=== PATIENT | male | born 1955 | race Caucasian/White ===

== ENCOUNTER 2019-12-11 13:33 | Observation (INO) | payer MEDICARE, BC, SELFPAY ==
[2019-12-11 13:34] VITALS: BP 140/84; PULSE 80; RESP 16; TEMP 36.9; O2SAT 96; BMI 32.3
[2019-12-11 13:37] VITALS: BP 140/84; PULSE 80; RESP 16; TEMP 36.9; O2SAT 96
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
--- NOTE | 2019-12-11 14:14 | RAD_ITS ---
STUDY: X-RAY CHEST REASON FOR EXAM: Male, 64 years old. COUGH, DIZZINESS, WEAKNESS TECHNIQUE: Single AP portable view of the chest. COMPARISON: 2013 FINDINGS: EKG leads overlie the chest The lungs are clear and expanded. There is no demonstrated pleural abnormality. Normal size heart. Normal mediastinum and robe. Normal visualized pulmonary arteries. Normal visualized aortic arch and descending thoracic aorta. Normal visualized thoracic spine. Normal visualized ribs, clavicles, and shoulders. There is no demonstrated abnormality of the visualized soft tissue structures of the upper abdomen. RAD/Chest 1 View (Portable) IMPRESSION: Normal x-ray examination of the chest. Electronically Signed: Yohannes Murray MD at 14:32 EDT , Service support ,
[2019-12-11] MEDS: Acetaminophen 500 MG Tablet 1000 MG PO (14:30)
[2019-12-11] MEDS: 0.9% Normal Saline 1,000 ML 125 ML IV ×2 (14:30→21:06)
[2019-12-11 14:34] LABS: Absolute Lymphocyte Count 1.25 X10^3/uL (0.83-4.51); Absolute Neutrophil Count 2.4 X10^3/uL (2.0-7.7); Basophil# 0.01 X10^3/uL; Basophil% 0.2 % (0-1); Eosinophil# 0.02 X10^3/uL; Eosinophils% 0.5 % (0-5); Hemoglobin 14.7 g/dL (13.0-16.5); Lymphocyte # 1.25 X10^3/ul (4.0); Lymphocyte % 30.5 % (19-41); Mean Corp Hgb Conc 34.2 g/dL (32-36); Mean Corpuscular Hgb 30.2 pg (27.0-32.0); Mean Corpuscular Volume 88.3 fL (80-94); Mean Platelet Vol. 9.9 fl (6.2-12.0); Monocyte# 0.42 X10^3/uL; Monocyte% 10.2 % (0-10); NRBC Flagged by Analyzer 0 % (0-5); Neutrophil # 2.39 X10^3/uL (2.7-7.7); Neutrophil % 58.4 % (47-70); Platelet Count 219 K/mm3 (150-450); RBC Distribution Width CV 12.5 % (11.6-14.6); RBC Distribution Width SD 40.5 fl (35.1-43.9); Red Blood Count 4.87 M/mm3 (4.6-6.2); White Blood Count 4.1 K/mm3 (4.4-11.0)
[2019-12-11 14:36] LABS: AST(SGOT) 20 U/L (15-37); Alanine Aminotransfer ALT/SGPT 34 U/L (16-61); Albumin, Serum 4.1 g/dL (3.2-5.0); Alkaline Phosphatase 76 U/L (45-117); Anion Gap 5 (5-15); BUN 19 mg/dL (7-18); Calcium,Total 8.8 mg/dL (8.5-10.1); Chloride 107 mmol/L (98-107); Creatinine, Serum 1.36 mg/dL (0.70-1.30); EST Glomerular Filtration Rate 56 mL/min (>60); Est Glom Filt Rate - Afr Amer 68 mL/min (>60); Estimated Creatinine Clearance 48.87 ml/min; Globulin 4.1 g/dL (2.2-4.2); Glucose 152 mg/dL (74-106); Protein, Total 8.2 g/dL (6.4-8.2); Sodium Level 138 mmol/L (136-145)
--- NOTE | 2019-12-11 14:43 | CT_ITS ---
STUDY: CTA CHEST REASON FOR EXAM: Male, 64 years old. HYPOXIA/WEAKNESS/PAIN. Pt feels dehydrated. Hx of HTN, HLD and diabetes RADIATION DOSAGE (If Supplied By Facility): CTDIvol = ( 11.59 ) mGy, DLP = ( 461.29 ) mGycm TECHNIQUE: The examination was performed with the intravenous administration of [id number] 100ml. Post-processing of the angiographic images was performed, with multiplanar reformation and 3D reconstruction. Individualized dose optimization techniques were used for this CT. COMPARISON: None. FINDINGS: Normal enhancement of the main pulmonary artery and right and left pulmonary arteries. Normal enhancement of the bilateral peripheral pulmonary arteries. There is no demonstrated pulmonary embolism. Normal thoracic aorta and visualized great vessels. There is no demonstrated aortic dissection. Normal heart and pericardium. There are calcifications of the coronary arteries. Normal mediastinum. Normal hilar regions. There is peribronchial thickening. The lungs are well expanded. Patchy opacifications in the left lower lobe suggest pneumonitis. No organized infiltrate or effusion. Normal pleura. Normal chest wall structures. There are degenerative changes of thoracic spine. Limited cuts through the upper abdomen show fatty infiltration of the liver. CT/CTA Chest W/WO Contrast IMPRESSION: No demonstrated PE, or thoracic aortic aneurysm or dissection Evidence of chronic bronchitis and left lower lobe pneumonitis No demonstrated effusion Calcified coronary vessels Degenerative bony changes Electronically Signed: Yohannes Murray MD at 15:17 EDT , Service support ,
[2019-12-11 14:46] LABS: Lactic Acid 1.1 mmol/L (0.4-1.9)
[2019-12-11 14:52] LABS: BNP,B-Type NATRIURETIC PEPTIDE 10.8 pg/mL (0-100)
[2019-12-11 16:07] VITALS: BP 114/71; PULSE 75; RESP 20; TEMP 37.6; O2SAT 99
[2019-12-11 16:12] VITALS: BP 114/71; PULSE 68; RESP 19; TEMP 37.6; O2SAT 98
[2019-12-11] MEDS: Ceftriaxone 1 GM/50 ML BAG IV (16:12)
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
[2019-12-11 18:25] VITALS: BP 134/83; PULSE 73; RESP 18; TEMP 37.6; O2SAT 98
[2019-12-11 18:41] LABS: Bedside Glucose 112 mg/dL (70-110)
[2019-12-11 18:55] VITALS: BMI 32.3
[2019-12-11 18:59] LABS: CPK Total, Creatine Kinase 96 U/L (39-308); LDH 147 U/L (87-241)
[2019-12-11 19:08] LABS: Procalcitonin 0.08 ng/mL (0.00-0.09)
[2019-12-11] MEDS: Insulin Lispro 100 UNIT/ML INSULN.PEN SC (21:07)
[2019-12-11] MEDS: Acetaminophen 325 MG Tablet 650 MG PO (21:08)
[2019-12-11] MEDS: MELATONIN 3 MG TABLET PO (21:08)
[2019-12-11 21:18] VITALS: BMI 36.5
[2019-12-11 22:30] VITALS: BP 138/67; PULSE 72; RESP 16; TEMP 37.9; O2SAT 97
[2019-12-12 00:06] LABS: Bedside Glucose 273 mg/dL (70-110)
[2019-12-12] MEDS: Acetaminophen 325 MG Tablet 650 MG PO ×2 (03:19→11:25)
[2019-12-12] MEDS: guaiFENesin 1,200 MG Tablet 1200 MG PO (03:19)
[2019-12-12] MEDS: 0.9% Saline Lock 10 ML Syringe IV (03:19)
[2019-12-12 03:30] VITALS: BP 156/76; PULSE 75; RESP 15; TEMP 37.4; O2SAT 98
[2019-12-12] MEDS: 0.9% Normal Saline 1,000 ML 125 ML IV (03:34)
[2019-12-12 03:55] LABS: Absolute Lymphocyte Count 1.11 X10^3/uL (0.83-4.51); Absolute Neutrophil Count 2.2 X10^3/uL (2.0-7.7); Eosinophil# 0.01 X10^3/uL; Eosinophils% 0.3 % (0-5); Hematocrit 38.1 % (40-54); Hemoglobin 12.7 g/dL (13.0-16.5); Lymphocyte # 1.11 X10^3/ul (4.0); Mean Corp Hgb Conc 33.3 g/dL (32-36); Mean Corpuscular Hgb 29.5 pg (27.0-32.0); Mean Corpuscular Volume 88.6 fL (80-94); Monocyte% 8.4 % (0-10); NRBC Flagged by Analyzer 0 % (0-5); Neutrophil # 2.15 X10^3/uL (2.7-7.7); Platelet Count 193 K/mm3 (150-450); RBC Distribution Width CV 12.6 % (11.6-14.6); RBC Distribution Width SD 40.3 fl (35.1-43.9); White Blood Count 3.6 K/mm3 (4.4-11.0)
[2019-12-12 03:59] LABS: Anion Gap 6 (5-15); BUN 16 mg/dL (7-18); BUN/Creat Ratio 12.4 RATIO (10-20); Calcium,Total 8.1 mg/dL (8.5-10.1); Chloride 107 mmol/L (98-107); Creatinine, Serum 1.29 mg/dL (0.70-1.30); EST Glomerular Filtration Rate 59 mL/min (>60); Est Glom Filt Rate - Afr Amer 72 mL/min (>60); Estimated Creatinine Clearance 51.52 ml/min; Glucose 141 mg/dL (74-106); Potassium 3.9 mmol/L (3.5-5.1); Sodium Level 137 mmol/L (136-145)
--- NOTE | 2019-12-12 09:04 | PCM.PROGNOTE ---
Patient Problems: Active and Suspected Problems COVID-19 (Acute) Subjective: Chief complaint: Follow-up after admission for viral pneumonia due to COVID-19. Patient seen and examined. No acute events overnight. He complained of cough, intermittently dry and sometimes with sputum. Shortness of breath improved. He has been having spikes of low-grade fever. Remained on room air. Other vital signs are stable. - Physical Exam Vitals/I&O's: Vital Signs Temp Pulse Resp BP Pulse Ox 99.3 F H 75 15 156/76 H 98 12/12/19 03:30 12/12/19 03:30 12/12/19 03:30 12/12/19 03:30 12/12/19 03:30 Oxygen Delivery Method Room Air Weight: 226 lb 6.636 oz Body Mass Index (BMI) 36.5 Finger Stick Blood Glucose 439 Intake and Output for Last 24 Hours 12/10/19 12/11/19 12/12/19 23:59 23:59 23:59 Intake Total 1095.00 / 1095.00 928.33 / 928.33 Balance 1095.00 / 1095.00 928.33 / 928.33 General: Alert, Oriented x3, Cooperative, No apparent distress HEENT: Atraumatic, PERRLA, EOMI, Normocephalic Oral: Moist Mucosa, No Gingival or Mucosal Lesions/ Ulcerations Neck: Supple, No JVD, Negative Carotid Bruits, Trachea Midline, Thyroid Normal Size and Texture Lungs: Clear to auscultation, Normal air movement, No rhonchi, No wheeze, No rales, Diminished Cardiovascular: Regular rate, Regular Rhythm, Normal S1, Normal S2, PMI Normal Abdomen: Bowel Sounds Present, Soft, Non Tender, Non-Distended, No Hepato-splenomegaly Extremities: No clubbing, No cyanosis, No edema Skin: No rashes, No breakdown Lymphatic: No Cervical, Supraclavicular, or Inguinal Adenopathy Neurological: Cranial nerves II-XII grossly intact, Neuro grossly intact Psych/Mental Status: Normal Affect, Appropriate, Alert and oriented to time, place, person, mood and affect Microbiology Past 72 Hours 12/11/19 14:12 Mucosa - Nose Respiratory Panel (PCR) - Preliminary Laboratory Results 12/11/19 13:50: WBC 4.1 L, RBC 4.87, Hgb 14.7, Hct 43.0, MCV 88.3, MCH 30.2, MCHC 34.2, RDW Std Deviation 40.5, RDW Coeff of Gerri 12.5, Plt Count 219, MPV 9.9, Immature Gran % (Auto) 0.200, Neut % (Auto) 58.4, Lymph % (Auto) 30.5, [place] % (Auto) 10.2 H, Eos % (Auto) 0.5, Baso % (Auto) 0.2, Absolute Neuts (auto) 2.4, Absolute Lymphs (auto) 1.25, Nucleated RBC % 0 12/11/19 13:50: Sodium 138, Potassium 4.0, Chloride 107, Carbon Dioxide 26.0, Anion Gap 5, BUN 19 H, Creatinine 1.36 H, Estim Creat Clear Calc 48.87, Est GFR (MDRD) Af Amer 68, Est GFR (MDRD) Non-Af 56 L, BUN/Creatinine Ratio 14.0, Glucose 152 H, Calcium 8.8, Total Bilirubin 0.40, AST 20, ALT 34, Alkaline Phosphatase 76, Troponin I < 0.015, Total Protein 8.2, Albumin 4.1, Globulin 4.1, Albumin/Globulin Ratio 1.0 12/11/19 13:50: Lactic Acid 1.1 12/11/19 13:50: B-Natriuretic Peptide 10.8 12/11/19 14:12: COVID-19 ([facility]AN) Positive 12/11/19 18:13: POC Glucose 112 H 12/11/19 18:30: Lactate Dehydrogenase 147, Total Creatine Kinase 96, Troponin I < 0.015, C-React Prot Ext Range 19.40 H 12/11/19 18:30: Procalcitonin 0.08 12/11/19 21:03: POC Glucose 273 H 12/12/19 03:25: WBC 3.6 L, RBC 4.30 L, Hgb 12.7 L, Hct 38.1 L, MCV 88.6, MCH 29.5, MCHC 33.3, RDW Std Deviation 40.3, RDW Coeff of Gerri 12.6, Plt Count 193, MPV 10.0, Immature Gran % (Auto) 0.300, Neut % (Auto) 60.0, Lymph % (Auto) 31.0, [place] % (Auto) 8.4, Eos % (Auto) 0.3, Baso % (Auto) 0.0, Absolute Neuts (auto) 2.2, Absolute Lymphs (auto) 1.11, Nucleated RBC % 0 12/12/19 03:25: Sodium 137, Potassium 3.9, Chloride 107, Carbon Dioxide 24.0, Anion Gap 6, BUN 16, Creatinine 1.29, Estim Creat Clear Calc 51.52, Est GFR (MDRD) Af Amer 72, Est GFR (MDRD) Non-Af 59 L, BUN/Creatinine Ratio 12.4, Glucose 141 H, Calcium 8.1 L Clinical Impression(s) from Imaging Studies Chest X-Ray 12/11/19 14:14 IMPRESSION: Normal x-ray examination of the chest. Electronically Signed: Yohannes Murray MD at 14:32 EDT , Service support , Chest CTA 12/11/19 14:43 IMPRESSION: No demonstrated PE, or thoracic aortic aneurysm or dissection Evidence of chronic bronchitis and left lower lobe pneumonitis No demonstrated effusion Calcified coronary vessels Degenerative bony changes Electronically Signed: Yohannes Murray MD at 15:17 EDT , Service support , Current Medications Acetaminophen (Tylenol) 650 mg PO Q6H PRN PRN PRN Reason: Pain Score 1-10/Temp > 100.7 F Last Admin: 12/12/19 03:19 Dose: 650 mg Documented by: Allopurinol (Zyloprim) 300 mg PO DAILY [facility] Amlodipine Besylate (Norvasc) 5 mg PO DAILY [facility] Aspirin (Aspirin, Baby) 81 mg PO DAILY [facility] Dextrose (D50w Syringe) 0 gm IV X1 PRN; Protocol PRN Reason: Hypoglycemia Enoxaparin Sodium (Lovenox) 40 mg SC DAILY [facility] Glucagon () 1 mg IM .X1 PRN PRN Reason: Hypoglycemia Guaifenesin (Mucinex) 1,200 mg PO BID PRN PRN PRN Reason: COUGH/CONGESTION Last Admin: 12/12/19 03:19 Dose: 1,200 mg Documented by: Sodium Chloride () 250 mls @ 15 mls/hr IV .[id number] PRN PRN Reason: Saline Flush Sodium Chloride () 250 mls @ 15 mls/hr IV .[id number] PRN PRN Reason: Additional IVPB Infusion Levofloxacin (Levaquin Iv) 750 mg in 150 mls @ 100 mls/hr IV Q24 [facility] Insulin Human Lispro (Humalog Kwikpen (Bkc)) 0 unit SC ACHS [facility]; Protocol Last Admin: 12/12/19 08:20 Dose: Not Given Documented by: Lactobacillus Acidophilus (Acidophilus) 1 tablet PO BID TITA Last Admin: 12/11/19 21:06 Dose: 1 tablet Documented by: Losartan Potassium (Cozaar) 100 mg PO DAILY [facility] Melatonin (Melatonin) 3 mg PO QHS PRN PRN PRN Reason: INSOMNIA Last Admin: 12/11/19 21:08 Dose: 3 mg Documented by: Metoprolol Succinate (Toprol Xl (Beta Di)) 50 mg PO DAILY [facility] Ondansetron HCl (Zofran) 4 mg IV Q8H PRN PRN PRN Reason: NAUSEA/VOMITING Pravastatin Sodium (Pravachol) 40 mg PO QHS [facility] Sodium Chloride () 10 - 40 ml IV UD PRN PRN Reason: SALINE FLUSH Last Admin: 12/12/19 03:19 Dose: 20 ml Documented by: Medical Necessity - Tobacco Use Smoking Status: Never smoker Assessment/Plan All Active Problems COVID-19 (Acute) This is a 64 years old male patient presented to the emergency room because of cough, malaise, arthralgias and myalgias as well as shortness of breath and he was found to have viral pneumonia due to COVID-19. #1 acute viral pneumonia due to COVID-19: Chest x-ray reviewed. CTA chest showed no PE or dissection, revealed left lower lobe minimal infiltrate. Patient received 1 dose of IV Rocephin in the ED. He has been having spikes of fever, remained on room air, other vital signs are stable. Routine blood work revealed leukopenia, otherwise unremarkable. Lactic acid was normal. LDH, CPK were normal. Troponin and BNP were normal. Procalcitonin was normal. CRP was elevated. COVID-19 PCR came back positive. Plan: Start IV Levaquin, infectious disease consult. #2 type 2 diabetes mellitus: Blood sugar stable, continue sliding scale, restart Actos, keep holding metformin. #3 hypertension: Blood pressure stable, continue Norvasc and losartan as well as metoprolol. #4 gout: Stable, continue allopurinol. #5 hyperlipidemia: Continue statins. #6 DVT prophylaxis: Subcu Lovenox. This note was generated with [employer] dictation software. It may contain incorrect words, spelling, and punctuation that were not noted in checking the note before signing. Inpatient E&M: 88866 Subs Hosp L2
--- NOTE | 2019-12-12 09:41 | CASEMGMT ---
ASHISH VAUGHAN Assessment Note Intro role of CM to patient via phone to room. Pt is able to participate in assessment. States he is very independent @ home. Lives with his and daughter, both are not showing symptoms and have not been tested. ASHISH VAUGHAN reviewed recommendations for his /dghtr to take temperature daily and to call their PCP with any symptoms or fever. Per patient, they are isolating at home currently. Presentation: shortness of breath, cough, malaise, Diagnosis: COVID-19 -Patient states he has area of home to isolate including own bathroom. -Patient has masks to wear and understands importance of handwashing. -Pharmacy is [facility] and they will deliver medications for patient -Discussed that during isolation/quarantine time @ home, someone will need to bring groceries, or local stores have delivery. Patient states he understands and will look this up. -Informed patient further instructions will be given by physician and nurses on dc. PCP: Dr. Galicia Specialists: none Insurance: LYNNE ARREOLA [facility] Prescription Benefit: yes LNOK: Janis Living Arrangements: Lives independently. Plans to return home on dc. Tranportation: drives, but is aware he will need to be isolated for period of time on dc. Patient DC Goals: Home DC Plan: Home. CM available for discharge planning coordination. Contact CM for any concerns/needs that may arise. Raquel REYN RN ACM
--- NOTE | 2019-12-12 10:07 | DCINST_ITS ---
- Discharge Diagnoses Current Active Problems: Current Active and Chronic Problems COVID-19 (Acute) You will use the following diet at home:: Calorie/Carbohydrate Controlled (specify 1200, 1400, etc) - 1800 KEHINDE., Cardiac Your food should be the consistency of: Regular Discharge Activity: Return to Normal Activity Weight Bearing Status: Full weight bearing Call your doctor if you observe: Fever of 101 or Higher, Shortness of breath, Dizziness, Fainting spells, Chest pain, Increased palpitations (irregular heartbeat), Uncontrolled pain Additional Instructions: Quarantine yourself for 2 weeks from the start of the symptoms. Allergies/Adverse Reactions: Allergies clarithromycin [From Biaxin] Allergy (Verified 12/11/19 13:34) Hives Sulfa (Sulfonamide Antibiotics) Allergy (Verified 12/11/19 13:34) Hives hydralazine Adverse Reaction (Verified 12/11/19 13:34) Other Medications to take at Discharge Allopurinol [Zyloprim] 300 mg PO DAILY 10/30/13 Aspirin [Aspirin, Baby] 81 mg PO DAILY@0800 10/30/13 Lactobacillus Acidophilus [Acidophilus] 1 tablet PO BID 10/30/13 Pravastatin [Pravachol] 40 mg PO DAILY 05/22/14 Albuterol Sulfate [Albuterol Sulfate HFA] 2 puff INHALATION Q4H PRN PRN 12/11/19 Amlodipine [Norvasc] 5 mg PO DAILY 12/11/19 Azithromycin [Zithromax Z-Danny] 250 mg PO UD 12/11/19 Losartan Potassium [Cozaar] 100 mg PO DAILY 12/11/19 Metformin HCl [Metformin HCl ER] 2,000 mg PO QHS 12/11/19 Metoprolol Succinate 50 mg PO DAILY 12/11/19 Pioglitazone [Actos] 15 mg PO QHS 12/11/19 Primary Care Physician: Kate Galicia MD [Primary Care Provider] - Please follow up with your Primary Care Physician in: 2 WEEKS. Test Results: Test results from this visit will be discussed in further detail at your follow- up appointment, if applicable.
--- NOTE | 2019-12-12 10:33 | PCM.HP.ID ---
Problem List (1) COVID-19 Status: Acute Reason for Consult: covid Consulted by: Dr. Grimes History of Present Illness: The patient is a 64 year old M with DM, htn, obesity, presented yesterday with dry cough, headache, muscle aches, not feeling well. Sx started 12/06. Has been trying to mask and isolate, but multiple recent exposures to possible covid cases as well as swimming in crowded pool. Lives with and daughter and they have been feeling fine. No chest pain or dyspnea, but feels a tickle in his chest. Developed loss of taste this AM. No n/v/d. No abd pain, no rash. Mild chills. Came to ED, covid (+), feeling about the same this AM. Full ROS performed and neg except as noted above. - Medical History Past Medical History (Chronic Problems): Chronic Problems Obesity (BMI 30-39.9) (Chronic) Hypertension (Chronic) Hyperlipidemia (Chronic) Diabetes mellitus, type II (Chronic) Gout (Chronic) Chronic R brachial plexus injury (Chronic) Allergies/Adverse Reactions: Allergies clarithromycin [From Biaxin] Allergy (Verified 12/11/19 13:34) Hives Sulfa (Sulfonamide Antibiotics) Allergy (Verified 12/11/19 13:34) Hives hydralazine Adverse Reaction (Verified 12/11/19 13:34) Other Home Medications: Ambulatory Orders Medication Instructions Recorded Allopurinol [Zyloprim] 300 mg PO DAILY 10/30/13 Aspirin [Aspirin, Baby] 81 mg PO DAILY@0800 10/30/13 Lactobacillus Acidophilus 1 tablet PO BID 10/30/13 [Acidophilus] Pravastatin [Pravachol] 40 mg PO DAILY 05/22/14 Albuterol Sulfate [Albuterol 2 puff INHALATION Q4H PRN PRN 12/11/19 Sulfate HFA] Amlodipine [Norvasc] 5 mg PO DAILY 12/11/19 Azithromycin [Zithromax Z-Danny] 250 mg PO UD 12/11/19 Losartan Potassium [Cozaar] 100 mg PO DAILY 12/11/19 Metformin HCl [Metformin HCl ER] 2,000 mg PO QHS 12/11/19 Metoprolol Succinate 50 mg PO DAILY 12/11/19 Pioglitazone [Actos] 15 mg PO QHS 12/11/19 - Social History Tobacco Use: non-smoker Vital Signs Temp Pulse Resp BP Pulse Ox 99.3 F H 75 15 156/76 H 98 12/12/19 03:30 12/12/19 03:30 12/12/19 03:30 12/12/19 03:30 12/12/19 03:30 Oxygen Delivery Method Room Air Weight: 102.7 kg Body Mass Index (BMI) 36.5 Finger Stick Blood Glucose 439 Microbiology Past 72 Hours 12/11/19 14:12 Respiratory Panel (PCR) - Preliminary Mucosa - Nose Laboratory Tests Past 24 Hrs 12/11/19 12/11/19 12/11/19 13:50 13:50 13:50 WBC 4.1 L RBC 4.87 Hgb 14.7 Hct 43.0 MCV 88.3 MCH 30.2 MCHC 34.2 RDW Std Deviation 40.5 RDW Coeff of Gerri 12.5 Plt Count 219 MPV 9.9 Immature Gran % (Auto) 0.200 Neut % (Auto) 58.4 Lymph % (Auto) 30.5 [place] % (Auto) 10.2 H Eos % (Auto) 0.5 Baso % (Auto) 0.2 Absolute Neuts (auto) 2.4 Absolute Lymphs (auto) 1.25 Nucleated RBC % 0 Sodium 138 Potassium 4.0 Chloride 107 Carbon Dioxide 26.0 Anion Gap 5 BUN 19 H Creatinine 1.36 H Estim Creat Clear Calc 48.87 Est GFR (MDRD) Af Amer 68 Est GFR (MDRD) Non-Af 56 L BUN/Creatinine Ratio 14.0 Glucose 152 H Lactic Acid 1.1 Calcium 8.8 Total Bilirubin 0.40 AST 20 ALT 34 Alkaline Phosphatase 76 Lactate Dehydrogenase Total Creatine Kinase Troponin I < 0.015 C-React Prot Ext Range B-Natriuretic Peptide Total Protein 8.2 Albumin 4.1 Globulin 4.1 Albumin/Globulin Ratio 1.0 Procalcitonin COVID-19 ([facility]) 12/11/19 12/11/19 12/11/19 13:50 14:12 18:30 WBC RBC Hgb Hct MCV MCH MCHC RDW Std Deviation RDW Coeff of Gerri Plt Count MPV Immature Gran % (Auto) Neut % (Auto) Lymph % (Auto) [place] % (Auto) Eos % (Auto) Baso % (Auto) Absolute Neuts (auto) Absolute Lymphs (auto) Nucleated RBC % Sodium Potassium Chloride Carbon Dioxide Anion Gap BUN Creatinine Estim Creat Clear Calc Est GFR (MDRD) Af Amer Est GFR (MDRD) Non-Af BUN/Creatinine Ratio Glucose Lactic Acid Calcium Total Bilirubin AST ALT Alkaline Phosphatase Lactate Dehydrogenase 147 Total Creatine Kinase 96 Troponin I < 0.015 C-React Prot Ext Range 19.40 H B-Natriuretic Peptide 10.8 Total Protein Albumin Globulin Albumin/Globulin Ratio Procalcitonin COVID-19 ([facility]) Positive 12/11/19 12/12/19 12/12/19 18:30 03:25 03:25 WBC 3.6 L RBC 4.30 L Hgb 12.7 L Hct 38.1 L MCV 88.6 MCH 29.5 MCHC 33.3 RDW Std Deviation 40.3 RDW Coeff of Gerri 12.6 Plt Count 193 MPV 10.0 Immature Gran % (Auto) 0.300 Neut % (Auto) 60.0 Lymph % (Auto) 31.0 [place] % (Auto) 8.4 Eos % (Auto) 0.3 Baso % (Auto) 0.0 Absolute Neuts (auto) 2.2 Absolute Lymphs (auto) 1.11 Nucleated RBC % 0 Sodium 137 Potassium 3.9 Chloride 107 Carbon Dioxide 24.0 Anion Gap 6 BUN 16 Creatinine 1.29 Estim Creat Clear Calc 51.52 Est GFR (MDRD) Af Amer 72 Est GFR (MDRD) Non-Af 59 L BUN/Creatinine Ratio 12.4 Glucose 141 H Lactic Acid Calcium 8.1 L Total Bilirubin AST ALT Alkaline Phosphatase Lactate Dehydrogenase Total Creatine Kinase Troponin I C-React Prot Ext Range B-Natriuretic Peptide Total Protein Albumin Globulin Albumin/Globulin Ratio Procalcitonin 0.08 COVID-19 ([facility]) - Other Studies Radiology: [] reviewed Other Studies: [] Route of nutrition/ use of supplements: [] Nutritional Intake: [] IV Site: [] Rios Catheter: [] - Physical Exam General: Alert, Oriented x3, Cooperative, No apparent distress HEENT: Atraumatic, PERRLA, EOMI Neck: Supple, No Nodes Lungs: Clear to auscultation, Normal air movement, Diminished Cardiovascular: Regular rate, Regular Rhythm Abdomen: Soft, Non Tender, Non-Distended Extremities: No edema Skin: No rashes IV Site: Peripheral, without redness Musculoskeletal: No Tenderness to Palpation of Joints or Extremities Neurological: Cranial nerves II-XII grossly intact - Assessment/Plan Antibiotics: [] Assessment/Plan: [] Active and Suspected Problems COVID-19 (Acute) Not hypoxic, feeling ok, interested in going home. CT-PE neg for PE. No need for abx. Counseled him to quarantine from family for 2 weeks starting from time sx started. They should monitor for sx for the next 2 weeks. He is to monitor for new chest pain/dyspnea. Ok for d/c home. Will follow as needed, thank you, d/w Dr. Grimes.
--- NOTE | 2019-12-12 11:11 | PCM.DC.SUM ---
Discharge Date and Diagnosis - Problem List Patient Problems: Active and Suspected Problems COVID-19 (Acute) Date of Admission: 12/11/19 Date of Discharge: 12/12/19 - Primary Discharge Diagnosis Acute Problems: Active Problems Acute viral minimal left lower lobe pneumonia due to COVID-19. - Secondary Discharge Diagnosis Chronic Problems: Chronic Problems Obesity (BMI 30-39.9) (Chronic) Hypertension (Chronic) Hyperlipidemia (Chronic) Diabetes mellitus, type II (Chronic) Gout (Chronic) Chronic R brachial plexus injury (Chronic) Hospital Course and Treatment Imaging Results: Clinical Impression(s) from Imaging Studies Chest X-Ray 12/11/19 14:14 IMPRESSION: Normal x-ray examination of the chest. Electronically Signed: Yohannes Murray MD at 14:32 EDT , Service support , Chest CTA 12/11/19 14:43 IMPRESSION: No demonstrated PE, or thoracic aortic aneurysm or dissection Evidence of chronic bronchitis and left lower lobe pneumonitis No demonstrated effusion Calcified coronary vessels Degenerative bony changes Electronically Signed: Yohannes Murray MD at 15:17 EDT , Service support , Dr. Ngo. Infectious disease. Operations: None, - - cystoscopy, left retrograde pyelography,stent placement Procedures: None Summary of Care Provided: Patient seen and examined on the day of discharge and appeared to be stable to be discharged home. He had spikes of low-grade fever, shortness of breath has been improving. Still having mild cough. He remained on room air, other vital signs are stable. The patient is a 64 year old M presented to the emergency room because of cough, malaise, arthralgia and shortness of breath and he was found to have viral pneumonia due to COVID-19. Chest x-ray showed no acute findings. CTA chest showed no PE or dissection, revealed minimal left lower lobe infiltrate. Patient received 1 dose of IV Rocephin in the ED and later, received 1 dose of IV Levaquin. His routine blood work was remarkable for leukopenia, otherwise normal. Lactic acid was normal. EKG revealed no acute segment changes. Troponin was negative. LFT, LDH and CPK were normal. Troponin and BNP was normal. Procalcitonin was normal. CRP was elevated. PCR for COVID-19 came back positive. Respiratory panel for viruses were negative. Blood culture was negative at the time of discharge. Patient remained on room air without any need for oxygen. Infectious disease consulted and Dr. Vela recommended that patient can be discharged home, quarantine for 2 weeks starting from the onset of symptoms, self monitoring of symptoms. Patient discharged home in a stable condition, no antibiotics prescribed upon discharge, continued on his previous home medications without any changes, instructed to quarantine himself for 2 weeks from the onset of symptoms, recommended self monitoring of symptoms, recommended follow-up with PCP in 2 weeks. Patient Problems: Active and Suspected Problems COVID-19 (Acute) - Physical Exam Vitals/I&O's: Vital Signs Temp Pulse Resp BP Pulse Ox 99.3 F H 75 15 156/76 H 98 12/12/19 03:30 12/12/19 03:30 12/12/19 03:30 12/12/19 03:30 12/12/19 03:30 Oxygen Delivery Method Room Air Weight: 226 lb 6.636 oz Body Mass Index (BMI) 36.5 Finger Stick Blood Glucose 439 Intake and Output for Last 24 Hours 12/10/19 12/11/19 12/12/19 23:59 23:59 23:59 Intake Total 1095.00 / 1095.00 1513.75 / 1513.75 Balance 1095.00 / 1095.00 1513.75 / 1513.75 General: Alert, Oriented x3, Cooperative, No apparent distress HEENT: Atraumatic, PERRLA, EOMI, Normocephalic Oral: Moist Mucosa, No Gingival or Mucosal Lesions/ Ulcerations Neck: Supple, No JVD, Negative Carotid Bruits, Trachea Midline, Thyroid Normal Size and Texture Lungs: Clear to auscultation, Normal air movement, No rhonchi, No wheeze, No rales Cardiovascular: Regular rate, Regular Rhythm, Normal S1, Normal S2, PMI Normal Abdomen: Bowel Sounds Present, Soft, Non Tender, Non-Distended, No Hepato-splenomegaly Extremities: No clubbing, No cyanosis, No edema Skin: No rashes, No breakdown Lymphatic: No Cervical, Supraclavicular, or Inguinal Adenopathy Neurological: Cranial nerves II-XII grossly intact, Neuro grossly intact Psych/Mental Status: Normal Affect, Appropriate Microbiology Past 72 Hours 12/11/19 14:12 Mucosa - Nose Respiratory Panel (PCR) - Preliminary Laboratory Results 12/11/19 13:50: WBC 4.1 L, RBC 4.87, Hgb 14.7, Hct 43.0, MCV 88.3, MCH 30.2, MCHC 34.2, RDW Std Deviation 40.5, RDW Coeff of Gerri 12.5, Plt Count 219, MPV 9.9, Immature Gran % (Auto) 0.200, Neut % (Auto) 58.4, Lymph % (Auto) 30.5, [place] % (Auto) 10.2 H, Eos % (Auto) 0.5, Baso % (Auto) 0.2, Absolute Neuts (auto) 2.4, Absolute Lymphs (auto) 1.25, Nucleated RBC % 0 12/11/19 13:50: Sodium 138, Potassium 4.0, Chloride 107, Carbon Dioxide 26.0, Anion Gap 5, BUN 19 H, Creatinine 1.36 H, Estim Creat Clear Calc 48.87, Est GFR (MDRD) Af Amer 68, Est GFR (MDRD) Non-Af 56 L, BUN/Creatinine Ratio 14.0, Glucose 152 H, Calcium 8.8, Total Bilirubin 0.40, AST 20, ALT 34, Alkaline Phosphatase 76, Troponin I < 0.015, Total Protein 8.2, Albumin 4.1, Globulin 4.1, Albumin/Globulin Ratio 1.0 12/11/19 13:50: Lactic Acid 1.1 12/11/19 13:50: B-Natriuretic Peptide 10.8 12/11/19 14:12: COVID-19 ([facility]) Positive 12/11/19 18:13: POC Glucose 112 H 12/11/19 18:30: Lactate Dehydrogenase 147, Total Creatine Kinase 96, Troponin I < 0.015, C-React Prot Ext Range 19.40 H 12/11/19 18:30: Procalcitonin 0.08 12/11/19 21:03: POC Glucose 273 H 12/12/19 03:25: WBC 3.6 L, RBC 4.30 L, Hgb 12.7 L, Hct 38.1 L, MCV 88.6, MCH 29.5, MCHC 33.3, RDW Std Deviation 40.3, RDW Coeff of Gerri 12.6, Plt Count 193, MPV 10.0, Immature Gran % (Auto) 0.300, Neut % (Auto) 60.0, Lymph % (Auto) 31.0, [place] % (Auto) 8.4, Eos % (Auto) 0.3, Baso % (Auto) 0.0, Absolute Neuts (auto) 2.2, Absolute Lymphs (auto) 1.11, Nucleated RBC % 0 12/12/19 03:25: Sodium 137, Potassium 3.9, Chloride 107, Carbon Dioxide 24.0, Anion Gap 6, BUN 16, Creatinine 1.29, Estim Creat Clear Calc 51.52, Est GFR (MDRD) Af Amer 72, Est GFR (MDRD) Non-Af 59 L, BUN/Creatinine Ratio 12.4, Glucose 141 H, Calcium 8.1 L Current Medications Acetaminophen (Tylenol) 650 mg PO Q6H PRN PRN PRN Reason: Pain Score 1-10/Temp > 100.7 F Last Admin: 12/12/19 03:19 Dose: 650 mg Documented by: Allopurinol (Zyloprim) 300 mg PO DAILY [facility] Amlodipine Besylate (Norvasc) 5 mg PO DAILY [facility] Aspirin (Aspirin, Baby) 81 mg PO DAILY [facility] Dextrose (D50w Syringe) 0 gm IV X1 PRN; Protocol PRN Reason: Hypoglycemia Enoxaparin Sodium (Lovenox) 40 mg SC DAILY [facility] Glucagon () 1 mg IM .X1 PRN PRN Reason: Hypoglycemia Guaifenesin (Mucinex) 1,200 mg PO BID PRN PRN PRN Reason: COUGH/CONGESTION Last Admin: 12/12/19 03:19 Dose: 1,200 mg Documented by: Sodium Chloride () 250 mls @ 15 mls/hr IV .[id number] PRN PRN Reason: Saline Flush Sodium Chloride () 250 mls @ 15 mls/hr IV .[id number] PRN PRN Reason: Additional IVPB Infusion Insulin Human Lispro (Humalog Kwikpen (Bkc)) 0 unit SC ACHS [facility]; Protocol Last Admin: 12/12/19 08:20 Dose: Not Given Documented by: Lactobacillus Acidophilus (Acidophilus) 1 tablet PO BID TITA Last Admin: 12/11/19 21:06 Dose: 1 tablet Documented by: Losartan Potassium (Cozaar) 100 mg PO DAILY [facility] Melatonin (Melatonin) 3 mg PO QHS PRN PRN PRN Reason: INSOMNIA Last Admin: 12/11/19 21:08 Dose: 3 mg Documented by: Metoprolol Succinate (Toprol Xl (Beta Di)) 50 mg PO DAILY [facility] Ondansetron HCl (Zofran) 4 mg IV Q8H PRN PRN PRN Reason: NAUSEA/VOMITING Pioglitazone HCl (Actos) 15 mg PO QHS [facility] Pravastatin Sodium (Pravachol) 40 mg PO QHS [facility] Sodium Chloride () 10 - 40 ml IV UD PRN PRN Reason: SALINE FLUSH Last Admin: 12/12/19 03:19 Dose: 20 ml Documented by: Discharge Activity: Return to Normal Activity Weight Bearing Status: Full weight bearing Call your doctor if you observe: Fever of 101 or Higher, Shortness of breath, Dizziness, Fainting spells, Chest pain, Increased palpitations (irregular heartbeat), Uncontrolled pain Home Medications: Medications to take at Discharge Allopurinol [Zyloprim] 300 mg PO DAILY 10/30/13 Aspirin [Aspirin, Baby] 81 mg PO DAILY@0800 10/30/13 Lactobacillus Acidophilus [Acidophilus] 1 tablet PO BID 10/30/13 Pravastatin [Pravachol] 40 mg PO DAILY 05/22/14 Albuterol Sulfate [Albuterol Sulfate HFA] 2 puff INHALATION Q4H PRN PRN 12/11/19 Amlodipine [Norvasc] 5 mg PO DAILY 12/11/19 Azithromycin [Zithromax Z-Danny] 250 mg PO UD 12/11/19 Losartan Potassium [Cozaar] 100 mg PO DAILY 12/11/19 Metformin HCl [Metformin HCl ER] 2,000 mg PO QHS 12/11/19 Metoprolol Succinate 50 mg PO DAILY 12/11/19 Pioglitazone [Actos] 15 mg PO QHS 12/11/19 Primary Care Physician: Kate Galicia MD [Primary Care Provider] - Please follow up with your Primary Care Physician in: 2 WEEKS. Disposition: Home Minutes spent on discharge:: 27 Patient Condition:: Stable Medical Necessity - Tobacco Use Smoking Status: Never smoker Meaningful Use Info Meaningful Use Diagnoses (Choose all that apply): None applicable OBSV E&M: 20118 Observation care discharge
[2019-12-12 11:22] VITALS: BP 158/83; PULSE 70; RESP 16; TEMP 37.8; O2SAT 97
[2019-12-12 11:24] VITALS: PULSE 70
[2019-12-12] MEDS: Aspirin 81 MG TAB.CHEW PO (11:24)
[2019-12-12] MEDS: Metoprolol(XL)Succ 50 MG Tablet PO (11:24)
[2019-12-12] MEDS: Losartan Potassium 100 MG Tablet PO (11:24)
[2019-12-12] MEDS: Allopurinol 300 MG Tablet PO (11:24)
[2019-12-12] MEDS: amLODIPine 5 MG Tablet PO (11:25)
== END 2019-12-12 13:15 | disposition home or self-care (01) ==
LOC: ED 14:58 → ICU 16:01
PROVIDERS: Admitting Provider Family Medicine; Emergency Provider Emergency Medicine; PCP Internal Medicine; Visit Provider Hospitalist
DX: U07.1 COVID-19 (principal); J12.89 Other viral pneumonia; M10.9 Gout, unspecified; E11.22 Type 2 diabetes mellitus with diabetic chronic kidney disease; I12.9 Hypertensive chronic kidney disease with stage 1 through stage 4 chronic kidney disease, or unspecified chronic kidney disease; N18.3 Chronic kidney disease, stage 3 (moderate); R55 Syncope and collapse; E66.9 Obesity, unspecified; E78.5 Hyperlipidemia, unspecified; Z68.36 Body mass index [BMI] 36.0-36.9, adult; Z79.899 Other long term (current) drug therapy; Z79.84 Long term (current) use of oral hypoglycemic drugs; Z79.82 Long term (current) use of aspirin; R06.02 Shortness of breath
CPT/HCPCS: 71045; 71275; 80048; 80053; 82550; 82962; 83605; 83615; 83880; 84145; 84484; 85025; 86140; 87040; 87633; 87635; 96361; 96365; 99218; 99285; G2023; J7030; Q9967; A4216; G0378; U0003

== ENCOUNTER 2019-12-13 19:23 | Emergency (ER) | payer MEDICARE, BC, SELFPAY ==
[2019-12-13 19:25] VITALS: BP 137/76; PULSE 78; RESP 20; TEMP 37.6; O2SAT 96; BMI 36.6
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
--- NOTE | 2019-12-13 19:49 | CT_ITS ---
STUDY: CT BRAIN WITHOUT CONTRAST REASON FOR EXAM: Male, 64 years old. HEADACHE, POSITIVE COVID-19 RADIATION DOSAGE (If Supplied By Facility): CTDIvol = ( 44.99 ) mGy, DLP = ( 762.36 ) mGycm TECHNIQUE: Transaxial CT imaging of the brain was performed without administration of intravenous contrast material. Individualized dose optimization techniques were used for this CT. COMPARISON: No relevant priors. FINDINGS: Normal soft tissue structures. Normal calvarium. Normal size ventricles and extra-axial spaces for the patient''s age. Mild periventricular white matter ischemic changes.. Normal basal ganglia and thalami. Normal brainstem. Normal cerebellum. Empty sella deformity of uncertain significance There is no intracranial hemorrhage. There are no findings of an acute ischemic infarction. Normal visualized paranasal sinuses. CT/Brain/Head without Contrast IMPRESSION: Mild periventricular white matter ischemic changes Empty sella deformity of uncertain significance. . No evidence for obstructive hydrocephalus mass or acute bleed Electronically Signed: Elvis Garcia MD at 20:53 EDT , Service support ,
[2019-12-13] MEDS: DiphenhydrAMINE 50 MG/ML Syringe 25 MG IV (20:17)
[2019-12-13] MEDS: Metoclopramide 10 MG/2 ML Vial IV (20:19)
[2019-12-13 20:22] VITALS: BP 130/75; PULSE 82; RESP 16; TEMP 38.3; O2SAT 95
[2019-12-13 20:31] LABS: Absolute Neutrophil Count 1.8 X10^3/uL (2.0-7.7); Basophil# 0.01 X10^3/uL; Basophil% 0.3 % (0-1); Eosinophil# 0.01 X10^3/uL; Eosinophils% 0.3 % (0-5); Hematocrit 38.6 % (40-54); Lymphocyte % 32.3 % (19-41); Mean Corp Hgb Conc 33.7 g/dL (32-36); Mean Corpuscular Hgb 29.3 pg (27.0-32.0); Mean Corpuscular Volume 86.9 fL (80-94); Mean Platelet Vol. 9.8 fl (6.2-12.0); Monocyte# 0.27 X10^3/uL; Monocyte% 8.7 % (0-10); NRBC Flagged by Analyzer 0 % (0-5); Neutrophil % 58.1 % (47-70); Platelet Count 178 K/mm3 (150-450); RBC Distribution Width CV 12.3 % (11.6-14.6); RBC Distribution Width SD 39.3 fl (35.1-43.9); Red Blood Count 4.44 M/mm3 (4.6-6.2); White Blood Count 3.1 K/mm3 (4.4-11.0)
--- NOTE | 2019-12-13 20:33 | RAD_ITS ---
STUDY: X-RAY CHEST REASON FOR EXAM: Male, 64 years old. COVID POSITIVE, PATIENT FEELING WEAK AND HAVING SEVERE HEADACHE TECHNIQUE: AP portable COMPARISON: December 11, 2019 FINDINGS: There is prominence of interstitial markings with mild increased opacity in the right lower left upper and left lower lobes which may be consistent with atypical viral pneumonia.. There is no demonstrated pleural abnormality. Normal size heart. Normal mediastinum and robe. Normal visualized pulmonary arteries. Normal visualized aortic arch and descending thoracic aorta. Dorsal spine demonstrates degenerative change. Normal visualized ribs, clavicles, and shoulders. There is no demonstrated abnormality of the visualized soft tissue structures of the upper abdomen. RAD/Chest 1 View (Portable) IMPRESSION: Findings which may be consistent with Covid 19 pneumonia. Electronically Signed: Elvis Garcia MD at 20:48 EDT , Service support ,
[2019-12-13 20:48] LABS: AST(SGOT) 25 U/L (15-37); Alanine Aminotransfer ALT/SGPT 25 U/L (16-61); Albumin, Serum 3.7 g/dL (3.2-5.0); Alkaline Phosphatase 67 U/L (45-117); Anion Gap 6 (5-15); BUN 16 mg/dL (7-18); BUN/Creat Ratio 12.3 RATIO (10-20); Calcium,Total 8.6 mg/dL (8.5-10.1); Chloride 105 mmol/L (98-107); EST Glomerular Filtration Rate 59 mL/min (>60); Est Glom Filt Rate - Afr Amer 71 mL/min (>60); Estimated Creatinine Clearance 51.12 ml/min; Globulin 3.7 g/dL (2.2-4.2); Glucose 141 mg/dL (74-106); Potassium 3.8 mmol/L (3.5-5.1); Protein, Total 7.4 g/dL (6.4-8.2); Sodium Level 135 mmol/L (136-145)
[2019-12-13 21:22] VITALS: BP 130/81; PULSE 74; RESP 18; TEMP 37.7; O2SAT 96
[2019-12-13 22:58] VITALS: BP 131/74; PULSE 80; RESP 16; O2SAT 96
== END 2019-12-13 22:59 | disposition home or self-care (01) ==
LOC: ED 19:56
PROVIDERS: Emergency Provider Student in an Organized Health Care Education/Training Program; PCP Internal Medicine
DX: U07.1 COVID-19 (principal); R51 Headache; Z79.82 Long term (current) use of aspirin; Z79.899 Other long term (current) drug therapy; Z88.2 Allergy status to sulfonamides
CPT/HCPCS: 70450; 71045; 80053; 82009; 85025; 96374; 96375; 99284; A4216

== ENCOUNTER 2019-12-18 11:12 | Inpatient (IN) | payer MEDICARE, BC, SELFPAY ==
[2019-12-18] VITALS (20 sets, daily range): BP systolic 114–154; BP diastolic 67–106; PULSE 84–104; RESP 24–40; TEMP 36.5–37.7; O2SAT 91–98; BMI 35.9; BMI 35.3; BMI 35.0
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
--- NOTE | 2019-12-18 11:25 | EKG12_ITS ---
Test Reason : SOB Blood Pressure : / mmHG Vent. Rate : 101 BPM Atrial Rate : 101 BPM P-R Int : 140 ms QRS Dur : 086 ms QT Int : 346 ms P-R-T Axes : 013 -04 -22 degrees QTc Int : 448 ms Sinus tachycardia Inferior infarct , age undetermined Nonspecific T wave abnormality Abnormal ECG Confirmed by LEONOR GAN, GUILLAUME ([id number]), assistant film editor HAO BANKS ([id number]) on 12/20/2019 12:34:28 PM Referred By: HAFSA Confirmed By:GUILLAUME GALVEZ MD
--- NOTE | 2019-12-18 11:25 | RAD_ITS ---
STUDY: X-RAY CHEST REASON FOR EXAM: Male, 64 years old. SOB, body aches, fever -- tested positive for COVID 7 days ago TECHNIQUE: Single AP portable view of the chest. COMPARISON: Comparison is made with prior examination dated 12-13-19. FINDINGS: EKG electrodes are seen. There now is evidence of a mild degree of infiltrates in the peripheral aspects of both lungs worse on the left side. With history of a positive Covid test, this may represent findings in keeping with Covid pulmonary infiltrates. There is no demonstrated pleural abnormality. Normal size heart. Normal mediastinum and robe. Normal visualized pulmonary arteries. There is atherosclerotic calcification of the aortic arch with tortuosity. There are diffuse degenerative changes of the visualized thoracic spine. Normal visualized ribs, clavicles, and shoulders. There is no demonstrated abnormality of the visualized soft tissue structures of the upper abdomen. RAD/Chest 1 View (Portable) IMPRESSION: Bilateral peripheral based infiltrates worse in the left hemithorax as described. Electronically Signed: Rodolfo Camejo, at 12:34 EDT , Service support ,
[2019-12-18 11:44] LABS: Absolute Lymphocyte Count 1.17 X10^3/uL (0.83-4.51); Absolute Neutrophil Count 2.5 X10^3/uL (2.0-7.7); Basophil# 0.02 X10^3/uL; Basophil% 0.5 % (0-1); Eosinophil# 0.09 X10^3/uL; Eosinophils% 2.1 % (0-5); Hematocrit 40.8 % (40-54); Hemoglobin 13.9 g/dL (13.0-16.5); Lymphocyte # 1.17 X10^3/ul (4.0); Lymphocyte % 27.3 % (19-41); Mean Corp Hgb Conc 34.1 g/dL (32-36); Mean Corpuscular Hgb 29.1 pg (27.0-32.0); Mean Corpuscular Volume 85.5 fL (80-94); Mean Platelet Vol. 9.2 fl (6.2-12.0); Monocyte# 0.46 X10^3/uL; Monocyte% 10.7 % (0-10); NRBC Flagged by Analyzer 0 % (0-5); Neutrophil # 2.52 X10^3/uL (2.7-7.7); Neutrophil % 58.7 % (47-70); POSITIVE MORPHOLOGY YES; Platelet Count 277 K/mm3 (150-450); RBC Distribution Width CV 12.4 % (11.6-14.6); RBC Distribution Width SD 38.7 fl (35.1-43.9); Red Blood Count 4.77 M/mm3 (4.6-6.2); White Blood Count 4.3 K/mm3 (4.4-11.0)
[2019-12-18] MEDS: fentaNYL 100 MCG/2 ML Ampul 50 MCG IV (11:48)
[2019-12-18 11:49] LABS: Differential Indicated SCAN CRITERIA MET
[2019-12-18 11:58] LABS: Prothrombin Time (Protime)PT. 13.1 SECONDS (11.7-14.9)
[2019-12-18 11:59] LABS: Partial Thromboplast Time 32.8 Seconds (24.1-36.2)
[2019-12-18 12:02] LABS: ALB/GLOB Ratio 0.7 RATIO (0.9-2.4); AST(SGOT) 49 U/L (15-37); Alanine Aminotransfer ALT/SGPT 40 U/L (16-61); Albumin, Serum 3.4 g/dL (3.2-5.0); Alkaline Phosphatase 71 U/L (45-117); Anion Gap 14 (5-15); BUN 24 mg/dL (7-18); BUN/Creat Ratio 17.9 RATIO (10-20); Chloride 102 mmol/L (98-107); Creatinine, Serum 1.34 mg/dL (0.70-1.30); EST Glomerular Filtration Rate 57 mL/min (>60); Est Glom Filt Rate - Afr Amer 69 mL/min (>60); Globulin 4.6 g/dL (2.2-4.2); Glucose 115 mg/dL (74-106); Potassium 3.8 mmol/L (3.5-5.1); Sodium Level 134 mmol/L (136-145)
[2019-12-18 12:23] LABS: Lactic Acid 0.8 mmol/L (0.4-1.9)
--- NOTE | 2019-12-18 13:14 | ED.RN ---
PT UNABLE TO PROVIDE URINE SAMPLE. PROVIDER AWARE. NO NEW ORDERS GIVEN.
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
[2019-12-18] MEDS: Ceftriaxone 1 GM/50 ML BAG IV (13:35)
--- NOTE | 2019-12-18 14:01 | CT_ITS ---
STUDY: CTA CHEST REASON FOR EXAM: Male, 64 years old. ELEVATED D-DIMER,SOB, PNEUMONIA, + COVID, DB, HTN RADIATION DOSAGE (If Supplied By Facility): CTDIvol = ( 14.9 ) mGy, DLP = ( 434.64 ) mGycm TECHNIQUE: The examination was performed with the intravenous administration of 100ML ISOVUE 370. Post-processing of the angiographic images was performed, with multiplanar reformation and 3D reconstruction. Individualized dose optimization techniques were used for this CT. COMPARISON: Comparison is made with prior examination dated 12-11-19. FINDINGS: Normal enhancement of the main pulmonary artery and right and left pulmonary arteries. Normal enhancement of the bilateral peripheral pulmonary arteries. There is no demonstrated pulmonary embolism. Normal thoracic aorta and visualized great vessels. There is no demonstrated aortic dissection. Normal heart and pericardium. There are visualized mediastinal lymph nodes, which are within normal size limits, and with normal morphology. Normal hilar regions. Normal visualized trachea and bronchi. The lungs are well expanded. Patchy areas of alveolar disease is seen preferentially in the lateral aspects of the lungs bilaterally. This is more prominent in the lower lobes. With the patient''s history of a positive occult blood test, this is in keeping with the pneumonia associated with Covid 19. Normal pleura. Normal chest wall structures. There are degenerative changes of thoracic spine. Fatty infiltration the liver. Small hiatal hernia. CT/CTA Chest W/WO Contrast IMPRESSION: No evidence of pulmonary emboli. Patchy infiltrates predominantly involving the lateral aspects of both hemithoraces as described. The pattern is compatible with the Covid pneumonic infiltrates. Electronically Signed: Rodolfo Camejo, at 14:32 EDT , Service support ,
[2019-12-18] MEDS: 0.9% Normal Saline 1,000 ML 100 ML IV (14:50)
[2019-12-18 15:18] LABS: Ferritin 1481 ng/mL (26-388); LDH 328 U/L (87-241); Magnesium 2.1 mg/dL (1.6-2.6)
[2019-12-18 15:19] LABS: Procalcitonin 0.09 ng/mL (0.00-0.09)
[2019-12-18 15:24] LABS: Mucous, Urine 0 SEEN /hpf (<or=2+); Red Blood Cells-Urine 0 SEEN /hpf (0-5); Squamous Epithelial Cells - UA 0 SEEN /hpf (0-5)
[2019-12-18 15:28] LABS: Color, Urine Yellow (Yellow); Glucose, Dipstick Normal (Normal); Ketone-Dipstick 50 mg/dl (Negative); Leukocyte Esterase-Dipstick Negative /ul (Negative); Nitrite-Dipstick Negative (Negative); Occult Blood-Urine Negative /ul (Negative); Protein-Dipstick 30 mg/dl (Negative); Urine Bilirubin Dipstick Negative (Negative); Urine Clarity Clear (Clear); Urine Urobilinogen Normal (Normal)
[2019-12-18 15:51] LABS: Bacteria RARE /hpf (None Seen); White Blood Cells 0-5 SEEN /hpf (0-5)
[2019-12-18 16:36] LABS: M R Staph aureus DNA By PCR Negative (Negative); Probe Check PASS; Specimen Processing Control PASS
[2019-12-18 16:51] LABS: Bedside Glucose 154 mg/dL (70-110)
--- NOTE | 2019-12-18 17:43 | PCM.RX.CS ---
Consult Pharmacy has been consulted to manage selected antiobiotic: Vancomycin Type of Consult: New start Labs: Sodium 134 mmol/L (136-145) L 12/18/19 11:30 Potassium 3.8 mmol/L (3.5-5.1) 12/18/19 11:30 Chloride 102 mmol/L (98-107) 12/18/19 11:30 Carbon Dioxide 18.0 mmol/L (21.0-32.0) L 12/18/19 11:30 Anion Gap 14 (5-15) 12/18/19 11:30 BUN 24 mg/dL (7-18) H 12/18/19 11:30 Creatinine 1.34 mg/dL (0.70-1.30) H 12/18/19 11:30 Est GFR (MDRD) Af Amer 69 mL/min (>60) 12/18/19 11:30 Est GFR (MDRD) Non-Af 57 mL/min (>60) L 12/18/19 11:30 BUN/Creatinine Ratio 17.9 RATIO (10-20) 12/18/19 11:30 Glucose 115 mg/dL (74-106) H 12/18/19 11:30 Microbiology: Microbiology 12/18/19 15:10 Urine, Clean Catch Streptococcus pneumoniae Antigen (M - Final 12/18/19 15:10 Urine, Clean Catch Legionella Antigen - Final Weight used for dosin kg Estimated Creatinine Clearance: 50 mL/min Goal Trough: 15-20 mcg/mL Pharmacy Plan for Drug Dosing: Vancomycin 2000mg IV given x1, 1000mg IV q12h with trough prior to 4th dose. Pharmacy Service will continue to monitor and adjust dosing as required. Follow-Up Labs: Trough Vancomycin - 12/19 @ 7000
[2019-12-18] MEDS: Famotidine 20 MG Tablet PO (22:18)
[2019-12-18] MEDS: Pravastatin 40 MG Tablet PO (22:18)
[2019-12-18] MEDS: Enoxaparin 40 MG/0.4 ML Syringe SC (22:18)
[2019-12-18 22:36] LABS: Bedside Glucose 99 mg/dL (70-110)
[2019-12-18] MEDS: guaiFENesin 10 ML UDC (200MG/10ML) 20 ML PO (22:50)
[2019-12-18] MEDS: MELATONIN 3 MG TABLET PO (22:50)
[2019-12-18] MEDS: Acetaminophen 325 MG Tablet 650 MG PO (22:50)
[2019-12-19] VITALS (13 sets, daily range): BP systolic 107–127; BP diastolic 60–77; PULSE 69–84; RESP 18–25; TEMP 36.4–37; O2SAT 94–99
[2019-12-19 05:00] LABS: Absolute Lymphocyte Count 1.39 X10^3/uL (0.83-4.51); Absolute Neutrophil Count 2.3 X10^3/uL (2.0-7.7); Basophil# 0.02 X10^3/uL; Basophil% 0.5 % (0-1); Eosinophil# 0.03 X10^3/uL; Eosinophils% 0.7 % (0-5); Hematocrit 38.3 % (40-54); Hemoglobin 12.6 g/dL (13.0-16.5); Lymphocyte # 1.39 X10^3/ul (4.0); Lymphocyte % 32.6 % (19-41); Mean Corp Hgb Conc 32.9 g/dL (32-36); Mean Corpuscular Hgb 29.3 pg (27.0-32.0); Mean Corpuscular Volume 89.1 fL (80-94); Monocyte# 0.47 X10^3/uL; NRBC Flagged by Analyzer 0 % (0-5); Neutrophil # 2.33 X10^3/uL (2.7-7.7); Neutrophil % 54.5 % (47-70); POSITIVE MORPHOLOGY YES; Platelet Count 283 K/mm3 (150-450); RBC Distribution Width CV 12.8 % (11.6-14.6); RBC Distribution Width SD 41.2 fl (35.1-43.9); White Blood Count 4.3 K/mm3 (4.4-11.0)
[2019-12-19 05:12] LABS: Differential Indicated SCAN CRITERIA MET
[2019-12-19] MEDS: Vancomycin IV 1,000 MG/200 ML BAG 200 MG IV (05:20)
[2019-12-19 05:22] LABS: Procalcitonin 0.08 ng/mL (0.00-0.09)
[2019-12-19 05:27] LABS: Differential Comment SCANNED; Reactive Lymphocyte 1+
[2019-12-19 06:16] LABS: ALB/GLOB Ratio 0.6 RATIO (0.9-2.4); AST(SGOT) 56 U/L (15-37); Alanine Aminotransfer ALT/SGPT 46 U/L (16-61); Alkaline Phosphatase 73 U/L (45-117); Anion Gap 9 (5-15); BUN 19 mg/dL (7-18); BUN/Creat Ratio 15.8 RATIO (10-20); Calcium,Total 8.6 mg/dL (8.5-10.1); Chloride 106 mmol/L (98-107); EST Glomerular Filtration Rate 65 mL/min (>60); Est Glom Filt Rate - Afr Amer 78 mL/min (>60); Estimated Creatinine Clearance 55.38 ml/min; Ferritin 1665 ng/mL (26-388); Globulin 4.8 g/dL (2.2-4.2); Glucose 116 mg/dL (74-106); Potassium 3.8 mmol/L (3.5-5.1); Protein, Total 7.8 g/dL (6.4-8.2); Sodium Level 135 mmol/L (136-145)
[2019-12-19 07:00] LABS: Bedside Glucose 159 mg/dL (70-110)
--- NOTE | 2019-12-19 08:51 | CASEMGMT ---
RN CM Note: See assessment 12/12/19 for details. Patient is currently on 2L NC. Patient was independent @ home. Has who tested positive and daughter at home. CM to follow for any dc needs including oxygen. DC PLAN: Anticipate home with family support, possible home oxygen on discharge. Raquel REYN RN ACM
[2019-12-19] MEDS: Aspirin 81 MG TAB.CHEW PO (10:30)
[2019-12-19] MEDS: Metoprolol(XL)Succ 50 MG Tablet PO (10:31)
[2019-12-19] MEDS: Losartan Potassium 100 MG Tablet PO (10:31)
[2019-12-19] MEDS: amLODIPine 5 MG Tablet PO (10:31)
[2019-12-19] MEDS: Famotidine 20 MG Tablet PO ×2 (10:31→22:22)
[2019-12-19] MEDS: Allopurinol 300 MG Tablet PO (10:31)
[2019-12-19] MEDS: Enoxaparin 40 MG/0.4 ML Syringe SC ×2 (10:31→22:22)
[2019-12-19] MEDS: Glucerna Shake 120 ML LIQUID PO (12:07)
[2019-12-19 12:16] LABS: Bedside Glucose 157 mg/dL (70-110)
[2019-12-19] MEDS: dexAMETHasone 4 MG Tablet 6 MG PO (14:59)
--- NOTE | 2019-12-19 15:41 | CON.PCM_ITS ---
Problem List (1) COVID-19 Status: Acute Reason for Consult: covid Consulted by: Dr. Haskins History of Present Illness: The patient is a 64 year old M DM, htn, obesity, presented yesterday with worsening dyspnea, cough, not feeling well, loss of taste/smell, headache, nausea. Sx started 12/06. Has been trying to mask and isolate, but multiple recent exposures to possible covid cases as well as swimming in crowded pool. and daughter now also with symptoms. Came to ED 12/10, covid (+). Sent home the next day, but sx worsening since then. Admitted on azithro.ceftriaxone, changed to vanc/zosyn. D-dimer was elevated. O2 improved today, off of NC. Full ROS performed and neg except as noted above. - Medical History Past Medical History (Chronic Problems): Chronic Problems Obesity (BMI 30-39.9) (Chronic) Hypertension (Chronic) Hyperlipidemia (Chronic) Diabetes mellitus, type II (Chronic) Gout (Chronic) Chronic R brachial plexus injury (Chronic) Allergies/Adverse Reactions: Allergies clarithromycin [From Biaxin] Allergy (Verified 12/13/19 19:35) Hives Sulfa (Sulfonamide Antibiotics) Allergy (Verified 12/13/19 19:35) Hives hydralazine Adverse Reaction (Verified 12/13/19 19:35) Other Home Medications: Ambulatory Orders Medication Instructions Recorded Allopurinol [Zyloprim] 300 mg PO DAILY 10/30/13 Aspirin [Aspirin, Baby] 81 mg PO DAILY@0800 10/30/13 Lactobacillus Acidophilus 1 tablet PO BID 10/30/13 [Acidophilus] Pravastatin [Pravachol] 40 mg PO DAILY 05/22/14 Albuterol Sulfate [Albuterol 2 puff INHALATION Q4H PRN PRN 12/11/19 Sulfate HFA] Amlodipine [Norvasc] 5 mg PO DAILY 12/11/19 Losartan Potassium [Cozaar] 100 mg PO DAILY 12/11/19 Metformin HCl [Metformin HCl ER] 2,000 mg PO QHS 12/11/19 Metoprolol Succinate 50 mg PO DAILY 12/11/19 Pioglitazone [Actos] 15 mg PO QHS 12/11/19 - Social History Tobacco Use: non-smoker Vital Signs Temp Pulse Resp BP Pulse Ox 98.6 F 82 20 H 110/71 95 12/19/19 15:40 12/19/19 15:40 12/19/19 15:40 12/19/19 15:40 12/19/19 15:40 Oxygen Flow Rate (L/min) 2 Oxygen Delivery Method Room Air Weight: 97.3 kg Body Mass Index (BMI) 35.3 Finger Stick Blood Glucose 439 Microbiology Past 72 Hours 12/18/19 15:10 Urine Culture - Preliminary Urine, Clean Catch Culture exhibits no growth. 12/18/19 15:00 Respiratory Panel (PCR) - Final Mucosa - Nasopharyngeal 12/18/19 15:10 Streptococcus pneumoniae Antigen (M - Final Urine, Clean Catch 12/18/19 15:10 Legionella Antigen - Final Urine, Clean Catch Laboratory Tests Past 24 Hrs 12/18/19 12/18/19 12/19/19 15:10 15:10 04:45 WBC 4.3 L RBC 4.30 L Hgb 12.6 L Hct 38.3 L MCV 89.1 MCH 29.3 MCHC 32.9 RDW Std Deviation 41.2 RDW Coeff of Gerri 12.8 Plt Count 283 MPV 9.0 Immature Gran % (Auto) 0.700 Neut % (Auto) 54.5 Lymph % (Auto) 32.6 Wallace % (Auto) 11.0 H Eos % (Auto) 0.7 Baso % (Auto) 0.5 Absolute Neuts (auto) 2.3 Absolute Lymphs (auto) 1.39 Nucleated RBC % 0 Differential Comment SCANNED Reactive Lymphocytes 1+ D-Dimer Quant (PE/DVT) Sodium Potassium Chloride Carbon Dioxide Anion Gap BUN Creatinine Estim Creat Clear Calc Est GFR (MDRD) Af Amer Est GFR (MDRD) Non-Af BUN/Creatinine Ratio Glucose Calcium Ferritin Total Bilirubin AST ALT Alkaline Phosphatase Troponin I C-React Prot Ext Range Total Protein Albumin Globulin Albumin/Globulin Ratio Procalcitonin Urine Color Yellow Urine Clarity Clear Urine pH 5.0 Ur Specific [place] 1.010 Urine Protein 30 H Urine Glucose (UA) Normal Urine Ketones 50 H Urine Occult Blood Negative Urine Nitrite Negative Urine Bilirubin Negative Urine Urobilinogen Normal Ur Leukocyte Esterase Negative Urine RBC 0 SEEN Urine WBC 0-5 SEEN Ur Squamous Epith Cells 0 SEEN Urine Bacteria RARE Urine Mucus 0 SEEN MRSA (PCR) Negative 12/19/19 12/19/19 12/19/19 04:45 04:45 04:45 WBC RBC Hgb Hct MCV MCH MCHC RDW Std Deviation RDW Coeff of Gerri Plt Count MPV Immature Gran % (Auto) Neut % (Auto) Lymph % (Auto) Wallace % (Auto) Eos % (Auto) Baso % (Auto) Absolute Neuts (auto) Absolute Lymphs (auto) Nucleated RBC % Differential Comment Reactive Lymphocytes D-Dimer Quant (PE/DVT) 1.10 H* Sodium 135 L Potassium 3.8 Chloride 106 Carbon Dioxide 20.0 L Anion Gap 9 BUN 19 H Creatinine 1.20 Estim Creat Clear Calc 55.38 Est GFR (MDRD) Af Amer 78 Est GFR (MDRD) Non-Af 65 BUN/Creatinine Ratio 15.8 Glucose 116 H Calcium 8.6 Ferritin 1665 H Total Bilirubin 0.60 AST 56 H ALT 46 Alkaline Phosphatase 73 Troponin I < 0.015 C-React Prot Ext Range 131.00 H Total Protein 7.8 Albumin 3.0 L Globulin 4.8 H Albumin/Globulin Ratio 0.6 L Procalcitonin 0.08 Urine Color Urine Clarity Urine pH Ur Specific Kenton Urine Protein Urine Glucose (UA) Urine Ketones Urine Occult Blood Urine Nitrite Urine Bilirubin Urine Urobilinogen Ur Leukocyte Esterase Urine RBC Urine WBC Ur Squamous Epith Cells Urine Bacteria Urine Mucus MRSA (PCR) - Other Studies Radiology: [] reviewed Other Studies: [] Route of nutrition/ use of supplements: [] Nutritional Intake: [] IV Site: [] Rios Catheter: [] - Physical Exam General: Alert, Oriented x3, Cooperative, - - uncomfortable HEENT: Atraumatic, PERRLA, EOMI Neck: Supple, No Nodes Lungs: Clear to auscultation, Normal air movement Cardiovascular: Regular rate, Regular Rhythm Abdomen: Soft, Non Tender, Non-Distended Extremities: No edema Skin: No rashes IV Site: Peripheral Musculoskeletal: No Tenderness to Palpation of Joints or Extremities Neurological: Cranial nerves II-XII grossly intact - Assessment/Plan Antibiotics: [] Assessment/Plan: [] Active and Suspected Problems Acute respiratory failure with hypoxia (Acute) Covid (+), worsening sx at home. On RA, satting ok, but hypoxic on arrival. Will start dexamethasone. CTA showed no PE. No need for remdesivir at this time. Will stop vanc/zosyn. Will follow, thank you
[2019-12-19] MEDS: Benzonatate 100 MG Capsule 200 MG PO (16:52)
[2019-12-19] MEDS: guaiFENesin/Codeine 5 ML UDC 10 ML PO (16:52)
--- NOTE | 2019-12-19 17:07 | PCM.PROGNOTE ---
Patient Problems: Active and Suspected Problems Acute respiratory failure with hypoxia (Acute) Subjective: Patient was seen and examined today, he was weaned off oxygen at rest presently, he complains of severe cough, he does not complain of any chest pain or shortness of breath at this time. He was seen by infectious diseases today and was placed on dexamethasone. His antibiotics were stopped. Has a harsh dry cough during my visit. - Physical Exam Vitals/I&O's: Vital Signs Temp Pulse Resp BP Pulse Ox 98.6 F 82 20 H 110/71 95 12/19/19 15:40 12/19/19 15:40 12/19/19 15:40 12/19/19 15:40 12/19/19 15:40 Oxygen Flow Rate (L/min) 2 Oxygen Delivery Method Room Air Weight: 97.3 kg Body Mass Index (BMI) 35.3 Finger Stick Blood Glucose 439 Intake and Output for Last 24 Hours 12/17/19 12/18/19 12/19/19 23:59 23:59 23:59 Intake Total 2081.67 / 2081.67 643.00 / 643.00 Output Total 650 / 650 400 / 400 Balance 1431.67 / 1431.67 243.00 / 243.00 General: Alert, Oriented x3, Cooperative, No apparent distress, Well developed, Well nourished HEENT: Atraumatic, PERRLA, EOMI, Normocephalic Oral: Moist Mucosa Neck: Supple, No JVD, Negative Carotid Bruits Lungs: Clear to auscultation, No rhonchi, No wheeze, Diminished, - - Scattered inspiratory rales are noted at the patient's upper lung mora bilaterally Cardiovascular: Regular rate, Regular Rhythm, Normal S1, Normal S2, No murmurs, PMI Normal, No rub noted, No Gallop Abdomen: Bowel Sounds Present, Soft, Non Tender, Non-Distended, No hernias noted Extremities: No clubbing, No cyanosis, No edema, Capillary Refill Less than 3 Seconds Skin: No rashes, No breakdown Musculoskeletal: No Tenderness to Palpation of Joints or Extremities Neurological: Cranial nerves II-XII grossly intact, Motor Exam 5/5 strength throughout, Sensory exam intact to light touch and pain, Coordination normal Psych/Mental Status: Normal Affect, Appropriate, Alert and oriented to time, place, person, mood and affect Microbiology Past 72 Hours 12/18/19 15:10 Urine, Clean Catch Urine Culture - Preliminary Culture exhibits no growth. 12/18/19 15:00 Mucosa - Nasopharyngeal Respiratory Panel (PCR) - Final 12/18/19 15:10 Urine, Clean Catch Streptococcus pneumoniae Antigen (M - Final 12/18/19 15:10 Urine, Clean Catch Legionella Antigen - Final Laboratory Results 12/18/19 22:16: POC Glucose 99 12/19/19 04:45: WBC 4.3 L, RBC 4.30 L, Hgb 12.6 L, Hct 38.3 L, MCV 89.1, MCH 29.3, MCHC 32.9, RDW Std Deviation 41.2, RDW Coeff of Gerri 12.8, Plt Count 283, MPV 9.0, Immature Gran % (Auto) 0.700, Neut % (Auto) 54.5, Lymph % (Auto) 32.6, [place] % (Auto) 11.0 H, Eos % (Auto) 0.7, Baso % (Auto) 0.5, Absolute Neuts (auto) 2.3, Absolute Lymphs (auto) 1.39, Nucleated RBC % 0, Differential Comment SCANNED, Reactive Lymphocytes 1+ 12/19/19 04:45: Sodium 135 L, Potassium 3.8, Chloride 106, Carbon Dioxide 20.0 L, Anion Gap 9, BUN 19 H, Creatinine 1.20, Estim Creat Clear Calc 55.38, Est GFR (MDRD) Af Amer 78, Est GFR (MDRD) Non-Af 65, BUN/Creatinine Ratio 15.8, Glucose 116 H, Calcium 8.6, Ferritin 1665 H, Total Bilirubin 0.60, AST 56 H, ALT 46, Alkaline Phosphatase 73, Troponin I < 0.015, C-React Prot Ext Range 131.00 H, Total Protein 7.8, Albumin 3.0 L, Globulin 4.8 H, Albumin/Globulin Ratio 0.6 L 12/19/19 04:45: D-Dimer Quant (PE/DVT) 1.10 H* 12/19/19 04:45: Procalcitonin 0.08 12/19/19 06:47: POC Glucose 159 H 12/19/19 12:05: POC Glucose 157 H Current Medications Acetaminophen (Tylenol) 650 mg PO Q6H PRN PRN PRN Reason: Pain Score 1-10/Temp > 100.7 F Last Admin: 12/18/19 22:50 Dose: 650 mg Documented by: Al Hydroxide/Mg Hydroxide (Mylanta Ii) 30 ml PO Q6H PRN PRN PRN Reason: Gastric Burning Albuterol Sulfate (Ventolin Aerosols) 2.5 mg INHALATION Q2H PRN PRN PRN Reason: Dyspnea, wheezing Allopurinol (Zyloprim) 300 mg PO DAILY [facility] Last Admin: 12/19/19 10:31 Dose: 300 mg Documented by: Amlodipine Besylate (Norvasc) 5 mg PO DAILY [facility] Last Admin: 12/19/19 10:31 Dose: 5 mg Documented by: Aspirin (Aspirin, Baby) 81 mg PO DAILY@0800 [facility] Last Admin: 12/19/19 10:30 Dose: 81 mg Documented by: Benzonatate (Tessalon Perle) 200 mg PO Q4H PRN PRN PRN Reason: COUGH Last Admin: 12/19/19 16:52 Dose: 200 mg Documented by: Dexamethasone (Decadron) 6 mg PO DAILY@0800 [facility] Dextrose (D50w Syringe) 0 gm IV X1 PRN; Protocol PRN Reason: Hypoglycemia Enoxaparin Sodium (Lovenox) 40 mg SC BID [facility] Last Admin: 12/19/19 10:31 Dose: 40 mg Documented by: Famotidine (Pepcid) 20 mg PO BID [facility] Last Admin: 12/19/19 10:31 Dose: 20 mg Documented by: Glucagon () 1 mg IM .X1 PRN PRN Reason: Hypoglycemia Guaifenesin/Codeine Phosphate (Robitussin Ac) 10 ml PO Q4H PRN PRN PRN Reason: COUGH Last Admin: 12/19/19 16:52 Dose: 10 ml Documented by: Hydralazine HCl (Apresoline Iv) 10 mg IV Q4H PRN PRN PRN Reason: SBP > 160 Sodium Chloride () 250 mls @ 15 mls/hr IV .[id number] PRN PRN Reason: Saline Flush Last Infusion: 12/19/19 06:39 Dose: 0 mls/hr Documented by: Sodium Chloride () 250 mls @ 15 mls/hr IV .[id number] PRN PRN Reason: Additional IVPB Infusion Insulin Human Lispro (Humalog Kwikpen (Bkc)) 0 unit SC ACHS [facility]; Protocol Last Admin: 12/19/19 16:52 Dose: Not Given Documented by: Lactobacillus Acidophilus (Acidophilus) 1 tablet PO BID [facility] Last Admin: 12/19/19 10:31 Dose: 1 tablet Documented by: Losartan Potassium (Cozaar) 100 mg PO DAILY [facility] Last Admin: 12/19/19 10:31 Dose: 100 mg Documented by: Magnesium Hydroxide (Milk Of Magnesia) 30 ml PO DAILY PRN PRN PRN Reason: Constipation Melatonin (Melatonin) 3 mg PO QHS PRN PRN PRN Reason: INSOMNIA Last Admin: 12/18/19 22:50 Dose: 3 mg Documented by: Metoprolol Succinate (Toprol Xl (Beta Di)) 50 mg PO DAILY [facility] Last Admin: 12/19/19 10:31 Dose: 50 mg Documented by: Morphine Sulfate () 2 mg IV Q3H PRN PRN PRN Reason: Pain Score 6-10/10 Nitroglycerin (Nitrostat) 0.4 mg SUBLINGUAL Q5M PRN PRN Reason: CARDIAC/CHEST PAIN Ondansetron HCl (Zofran) 4 mg IV Q8H PRN PRN PRN Reason: NAUSEA/VOMITING Oxycodone HCl (Oxyir) 5 mg PO Q4H PRN PRN PRN Reason: Pain Score 4-5/10 Pravastatin Sodium (Pravachol) 40 mg PO QHS [facility] Last Admin: 12/18/19 22:18 Dose: 40 mg Documented by: Prochlorperazine Edisylate (Compazine Iv) 5 mg IV Q4H PRN PRN PRN Reason: Breakthrough Nausea/Vomiting Psyllium Hydrophilic Mucilloid (Metamucil) 1 packet PO DAILY PRN PRN PRN Reason: Constipation Senna/Docusate Sodium (Senokot-S, Bing-Colace) 2 tablet PO BID PRN PRN PRN Reason: Constipation Throat Lozenges (Cepacol Sore Throat Lozenge) 1 lozenge MUCOUS MEM Q2H PRN PRN PRN Reason: SORE THROAT Medical Necessity - Tobacco Use Smoking Status: Never smoker Assessment/Plan All Active Problems Acute respiratory failure with hypoxia (Acute) COVID-19 (Acute) #1 COVID-19 infection-ID placed the patient on dexamethasone today, continue to monitor, patient was placed on Robitussin AC and Tessalon Perles for his cough, he is on an intermediate dose of Lovenox subcu at this time #2 hypoxia-resolved at this time at rest, patient will be walked in his room tomorrow to see if he requires oxygen on ambulation #3 type 2 diabetes-fingerstick blood sugars will be obtained and he will be given sliding scale insulin per protocol, I expect due to the administration of dexamethasone the patient's blood sugars may increase. #4 essential hypertension #5 hyperlipidemia #6 class 1 obesity Inpatient E&M: 00778 Subs Hosp L2
[2019-12-19 17:30] LABS: Bedside Glucose 140 mg/dL (70-110)
[2019-12-19] MEDS: Pravastatin 40 MG Tablet PO (22:22)
[2019-12-19] MEDS: Insulin Lispro 100 UNIT/ML INSULN.PEN SC (22:28)
[2019-12-19 22:51] LABS: Bedside Glucose 234 mg/dL (70-110)
[2019-12-20] VITALS (7 sets, daily range): BP systolic 117–155; BP diastolic 78–83; PULSE 71–92; RESP 20; TEMP 36.5–37; O2SAT 93–95
[2019-12-20] MEDS: Insulin Lispro 100 UNIT/ML INSULN.PEN SC ×2 (06:41→12:13)
[2019-12-20] MEDS: Aspirin 81 MG TAB.CHEW PO (09:15)
[2019-12-20] MEDS: Losartan Potassium 100 MG Tablet PO (09:15)
[2019-12-20] MEDS: Enoxaparin 40 MG/0.4 ML Syringe SC (09:16)
[2019-12-20] MEDS: amLODIPine 5 MG Tablet PO (09:16)
[2019-12-20] MEDS: Famotidine 20 MG Tablet PO (09:16)
[2019-12-20] MEDS: dexAMETHasone 4 MG Tablet 6 MG PO (09:17)
[2019-12-20] MEDS: Allopurinol 300 MG Tablet PO (09:17)
[2019-12-20] MEDS: Metoprolol(XL)Succ 50 MG Tablet PO (09:20)
[2019-12-20] MEDS: Pioglitazone Hydrochloride 15 MG Tablet PO (09:34)
[2019-12-20 10:36] LABS: Bedside Glucose 218 mg/dL (70-110)
--- NOTE | 2019-12-20 11:08 | PCM.DC ---
- Discharge Diagnoses Current Active Problems: Current Active and Chronic Problems Acute respiratory failure with hypoxia (Acute) You will use the following diet at home:: Calorie/Carbohydrate Controlled (specify 1200, 1400, etc) - 1800 noel Your food should be the consistency of: Regular Your liquids should be the consistency of: Regular/Thin Discharge Activity: Return to Normal Activity Weight Bearing Status: Full weight bearing Additional Instructions: HAVE YOUR DAUGHTER CHECKED FOR COVID-IF NEGATIVE, SHE NEEDS ISOLATED FROM YOUR COVID POSITIVE FAMILY MEMBERS. STAY ISOLATED AT HOME FOR ANOTHER WEEK Allergies/Adverse Reactions: Allergies clarithromycin [From Biaxin] Allergy (Verified 12/13/19 19:35) Hives Sulfa (Sulfonamide Antibiotics) Allergy (Verified 12/13/19 19:35) Hives hydralazine Adverse Reaction (Verified 12/13/19 19:35) Other Medications to take at Discharge Allopurinol [Zyloprim] 300 mg PO DAILY 10/30/13 Aspirin [Aspirin, Baby] 81 mg PO DAILY@0800 10/30/13 Lactobacillus Acidophilus [Acidophilus] 1 tablet PO BID 10/30/13 Pravastatin [Pravachol] 40 mg PO DAILY 05/22/14 Albuterol Sulfate [Albuterol Sulfate HFA] 2 puff INHALATION Q4H PRN PRN 12/11/19 Amlodipine [Norvasc] 5 mg PO DAILY 12/11/19 Losartan Potassium [Cozaar] 100 mg PO DAILY 12/11/19 Metformin HCl [Metformin HCl ER] 2,000 mg PO QHS 12/11/19 Metoprolol Succinate 50 mg PO DAILY 12/11/19 Pioglitazone [Actos] 15 mg PO QHS 12/11/19 Benzonatate [Tessalon Perle] 200 mg PO Q4H PRN PRN cap 12/20/19 Dexamethasone [Decadron] 6 mg PO DAILY@0800 #9 tab 12/20/19 Guaifenesin/Codeine [Robitussin AC] 10 ml PO Q4H PRN PRN #8 oz 12/20/19 Pioglitazone [Actos] 15 mg PO DAILY@0800 tab 12/20/19 metFORMIN (XR) [Glucophage Xr] 2,000 mg PO DAILY@1700 tab 12/20/19 The following prescriptions were given: Dexamethasone [Decadron] 6 mg PO DAILY@0800 #9 tab Transmission Status: Received by [facility] Guaifenesin/Codeine [Robitussin AC] 10 ml PO Q4H PRN PRN #8 oz PRN Reason: COUGH Transmission Status: Received by [facility] Primary Care Physician: Kate Galicia MD [Primary Care Provider] - Please follow up with your Primary Care Physician in: IN 2-3 WEEKS Test Results: Test results from this visit will be discussed in further detail at your follow-up appointment, if applicable.
[2019-12-20 12:26] LABS: Bedside Glucose 204 mg/dL (70-110)
--- NOTE | 2019-12-22 09:00 | DS.PCM_ITS ---
Discharge Date and Diagnosis Date of Admission: 12/18/19 Date of Discharge: 12/20/19 - Primary Discharge Diagnosis Acute Problems: #1 COVID-19 infection #2 hypoxia-resolved at this time at rest, patient will be walked in his room tomorrow to see if he requires oxygen on ambulation #3 type 2 diabetes- #4 essential hypertension #5 hyperlipidemia #6 class 1 obesity #7 hypoxia secondary to #1 - Secondary Discharge Diagnosis Chronic Problems: Chronic Problems Obesity (BMI 30-39.9) (Chronic) Hypertension (Chronic) Hyperlipidemia (Chronic) Diabetes mellitus, type II (Chronic) Gout (Chronic) Chronic R brachial plexus injury (Chronic) Hospital Course and Treatment Operations: None, - - cystoscopy, left retrograde pyelography,stent placement Procedures: None Summary of Care Provided: The patient is a 64 year old M seen in the emergency room at [facility] with progressive shortness of breath, he was diagnosed with COVID-19 7 days before. Chest x-ray was obtained which was compared to her previous chest x-ray done recently and it showed worsening infiltrates. Patient was placed on 2 L per nasal cannula and he appeared to be stable and his respiratory status. Patient was admitted to ICU, he was seen in consultation by infectious diseases and was placed on dexamethasone. Patient slowly improved during his hospitalization was able be weaned off oxygen. 12/20/2019, patient was seen and examined: On examination he appeared in good health and spirits. Vital signs as documented. Skin warm and dry and without overt rashes. Neck without JVD, neck was supple, trachea midline, thyroid was normal. Lungs clear bilaterally, normal air movement was noted. Heart exam notable for regular rhythm, normal sounds and absence of murmurs, rubs or gallops. Abdomen unremarkable and without evidence of organomegaly, masses, or abdominal aortic enlargement. Bowel sounds are present, abdomen is not distended. Extremities nonedematous, no cyanosis was noted, no clubbing was noted. Neuro: Cranial nerves II through XII are grossly intact, no focal motor deficits were noted, sensation to light touch and pinprick intact, motor exam 5/5 throughout. Psych: Patient is alert and oriented x3, he does not appear anxious or depressed, he does not appear agitated. On 12/20/2019, patient was felt to be stable for discharge home was discharged home. - Physical Exam Vitals/I&O's: Vital Signs Temp Pulse Resp BP Pulse Ox 97.7 F L 92 20 H 155/83 H 95 12/20/19 09:48 12/20/19 10:16 12/20/19 09:48 12/20/19 09:48 12/20/19 11:11 Oxygen Flow Rate (L/min) 2 Oxygen Delivery Method Room Air Weight: 95.1 kg Body Mass Index (BMI) 35.3 Finger Stick Blood Glucose 439 Intake and Output for Last 24 Hours 12/20/19 12/21/19 12/22/19 23:59 23:59 23:59 Intake Total 120 / 120 Output Total 1000 / 1000 Balance -880 / -880 Microbiology Past 72 Hours 12/19/19 15:30 Sputum, Expectorated/Coughed Gram Stain - Final 12/19/19 15:30 Sputum, Expectorated/Coughed Respiratory Culture - Final Mixed normal respiratory dav. No Streptococcus pneumoniae, beta-hemolytic Streptococcus or Staphylococcus aureus isolated. 12/18/19 15:10 Urine, Clean Catch Urine Culture - Final Culture exhibits no growth. 12/18/19 11:40 Blood Culture (Wb) - Right Hand Blood Culture - Preliminary No growth in 48 hours. 12/18/19 11:30 Blood Culture (Wb) - Anticubital Left Blood Culture - Preliminary No growth in 48 hours. 12/18/19 15:00 Mucosa - Nasopharyngeal Respiratory Panel (PCR) - Final Discharge Activity: Return to Normal Activity Weight Bearing Status: Full weight bearing Home Medications: Medications to take at Discharge Allopurinol [Zyloprim] 300 mg PO DAILY 10/30/13 Aspirin [Aspirin, Baby] 81 mg PO DAILY@0800 10/30/13 Lactobacillus Acidophilus [Acidophilus] 1 tablet PO BID 10/30/13 Pravastatin [Pravachol] 40 mg PO DAILY 05/22/14 Albuterol Sulfate [Albuterol Sulfate HFA] 2 puff INHALATION Q4H PRN PRN 12/11/19 Amlodipine [Norvasc] 5 mg PO DAILY 12/11/19 Losartan Potassium [Cozaar] 100 mg PO DAILY 12/11/19 Metformin HCl [Metformin HCl ER] 2,000 mg PO QHS 12/11/19 Metoprolol Succinate 50 mg PO DAILY 12/11/19 Pioglitazone [Actos] 15 mg PO QHS 12/11/19 Benzonatate [Tessalon Perle] 200 mg PO Q4H PRN PRN cap 12/20/19 Dexamethasone [Decadron] 6 mg PO DAILY@0800 #9 tab 12/20/19 Guaifenesin/Codeine [Robitussin AC] 10 ml PO Q4H PRN PRN #8 oz 12/20/19 Pioglitazone [Actos] 15 mg PO DAILY@0800 tab 12/20/19 metFORMIN (XR) [Glucophage Xr] 2,000 mg PO DAILY@1700 tab 12/20/19 Following Prescriptions Were Given to Patient: Dexamethasone [Decadron] 6 mg PO DAILY@0800 #9 tab Transmission Status: Received by [facility] Guaifenesin/Codeine [Robitussin AC] 10 ml PO Q4H PRN PRN #8 oz PRN Reason: COUGH Transmission Status: Received by [facility] Primary Care Physician: Kate Galicia MD [Primary Care Provider] - Please follow up with your Primary Care Physician in: IN 2-3 WEEKS Disposition: Home Minutes spent on discharge:: 32 Patient Condition:: Stable Medical Necessity - Tobacco Use Smoking Status: Never smoker Meaningful Use Info Meaningful Use Diagnoses (Choose all that apply): None applicable Inpatient E&M: 69380 Disch Hosp
--- NOTE | 2019-12-25 15:11 | CASEMGMT ---
ASHISH VAUGHAN DC PHONE CALL DC DATE: 12/22/2019 DC DISPOSITION: Home DC DIAGNOSIS: SARS COVID 2 Intro role of CM to patient's . Pt is not feeling well, still tired, not eating much and is trying to make sure he eats and drinks. BGM shows glucose still higher. Pt is taking Decadron daily. ASHISH VAUGHAN let know to contact PCP if concerns arise with patient's blood sugars dropping and if he gets more lethargic or short of breath. is able to do this. No further questions at this time. Family is continuing to isolate and is aware of wearing masks, gloves. Raquel CHAMBERS RN ACM
--- NOTE | 2019-12-25 15:27 | CASEMGMT ---
ASHISH VUAGHAN DC PHONE CALL DC DATE: 12/20/2019 DC DISPOSITION: Home DC DIAGNOSIS: SARS COVID 2 Intro role of CM to patient's . Pt is not feeling well, still tired, not eating much and is trying to make sure he eats and drinks. BGM shows glucose still higher. Pt is taking Decadron daily. ASHISH VAUGHAN let know to contact PCP if concerns arise with patient's blood sugars dropping and if he gets more lethargic or short of breath. is able to do this. No further questions at this time. Family is continuing to isolate and is aware of wearing masks, gloves. Raquel CHAMBERS RN ACM
== END 2019-12-20 14:20 | disposition home or self-care (01) | DRG 177 ==
LOC: ED 12:20 → ICU 14:08
PROVIDERS: Admitting Provider Family Medicine; Emergency Provider Student in an Organized Health Care Education/Training Program; PCP Internal Medicine; Visit Provider Internal Medicine
DX: U07.1 COVID-19 (principal); J12.89 Other viral pneumonia; E11.9 Type 2 diabetes mellitus without complications; I10 Essential (primary) hypertension; E78.5 Hyperlipidemia, unspecified; M1A.9XX0 Chronic gout, unspecified, without tophus (tophi); E66.09 Other obesity due to excess calories; Z68.35 Body mass index [BMI] 35.0-35.9, adult; Z79.84 Long term (current) use of oral hypoglycemic drugs; Z79.82 Long term (current) use of aspirin; Z79.899 Other long term (current) drug therapy
CPT/HCPCS: 71045; 71275; 80053; 81001; 82728; 82962; 83605; 83615; 83735; 84145; 84484; 85025; 85379; 85610; 85730; 86140; 87040; 87070; 87086; 87205; 87449; 87633; 87641; 93005; 97802; 99251; 99285; J7030; J7040; J7050; Q9967; G0463

== ENCOUNTER 2019-12-27 12:35 | Emergency (ER) | payer MEDICARE, BC, SELFPAY ==
[2019-12-18 14:51] VITALS: BMI 35.3
[2019-12-27 12:36] VITALS: BP 110/72; PULSE 61; RESP 17; TEMP 36.8; O2SAT 95; BMI 33.3
[2019-12-27 12:43] VITALS: O2SAT 97
--- NOTE | 2019-12-27 12:56 | RAD_ITS ---
STUDY: X-RAY CHEST REASON FOR EXAM: Male, 64 years old. COVID POSITIVE APPROX 2 WEEKS AGO, YESTERDAY AND TODAY MORE SOB TECHNIQUE: Single AP portable view of the chest. COMPARISON: Comparison is made with prior study dated 12/18/2019. FINDINGS: EKG electrodes are seen. Since prior study, there has been improvement of the peripheral infiltrate in the left midlung and right lung base. Mild residual changes persist. There is no demonstrated pleural abnormality. Normal size heart. Normal mediastinum and robe. Normal visualized pulmonary arteries. There is atherosclerotic tortuosity of the aortic arch and descending thoracic aorta. There are diffuse degenerative changes of the visualized thoracic spine. Normal visualized ribs, clavicles, and shoulders. There is no demonstrated abnormality of the visualized soft tissue structures of the upper abdomen. RAD/Chest 1 View (Portable) IMPRESSION: Since prior study, there has been moderate improvement of the bilateral infiltrates. Mild residual changes persist. Electronically Signed: Rodolfo Camejo, at 13:56 EDT , Service support ,
--- NOTE | 2019-12-27 13:00 | ED.VISSUMM ---
- ER Visit Summary Date of Service: 12/27/19 Chief Complaint: Diagnosed with COVID December 10 and feeling more short of breath. History of Present Illness: The patient is a 64 M history of diabetes, hypertension, kidney stones and diagnosed with COVID 2+ weeks ago. Patient states he was hospitalized he since been home he was on steroids. He is not on home oxygen but is feeling more short of breath. Denies chest pain. Denies hemoptysis. He has had 2 CTAs of his chest showing COVID but no PEs. Denies any leg pain or swelling. is at home she also has COVID but is improving according to the patient. Physical Examination: Older male vital signs stable. O2 sat reportedly from apparent paramedics was 91 on room air he is currently 95 on oxygen. He is afebrile he does not look septic or toxic. H EENT exam unremarkable. Neck nontender no JVD. No lymphadenopathy. Lungs clear to auscultation bilaterally. Heart regular rhythm rate about 60 no murmur. Abdomen soft nontender. Extremities moves all 4. Calves are nontender. No edema. No cords. Neurologically is awake alert with no focal motor deficits. Test Results: She has a white count 8. Hemoglobin 14. Chemistries unremarkable creatinine 1.43 previously was higher. Normal gap. Chest x-ray there are some residual signs of COVID infiltrates but it is improved from prior and read by myself and the radiologist. Emergency Department Course and Treatment: Patient with known COVID since December 10. Has had extensive work-up previously. Including chest x-rays, CTA of his chest x2 and blood work. Be treated with IV Decadron. Screening labs and a chest x-ray. I do not think he needs another CAT scan at this time. Repeat exam at 42 patient is doing well. He is sitting up in bed without oxygen on. He was ambulated about the room not hypoxic and he feels comfortable being discharged. He understands at this time there is really nothing to admit him to the hospital for. Treatment Plan: Decadron daily 5 days. Follow-up with his doctor. Return if worse. Disposition: Discharge Impression: COVID-19 with dyspnea This note was generated with [employer] software. It may contain incorrect words, spelling, and punctuation that were not noted in review of the chart prior to signing ED Disposition - Plan for ED Patient: Referrals: Kate Galicia MD [Primary Care Provider] -
[2019-12-27 13:16] LABS: Absolute Lymphocyte Count 2.36 X10^3/uL (0.83-4.51); Absolute Neutrophil Count 5.2 X10^3/uL (2.0-7.7); Basophil# 0.04 X10^3/uL; Basophil% 0.5 % (0-1); Eosinophil# 0.04 X10^3/uL; Eosinophils% 0.5 % (0-5); Hematocrit 42.7 % (40-54); Hemoglobin 14.7 g/dL (13.0-16.5); Lymphocyte # 2.36 X10^3/ul (4.0); Mean Corp Hgb Conc 34.4 g/dL (32-36); Mean Corpuscular Hgb 29.3 pg (27.0-32.0); Mean Corpuscular Volume 85.2 fL (80-94); Mean Platelet Vol. 9.9 fl (6.2-12.0); Monocyte# 0.96 X10^3/uL; NRBC Flagged by Analyzer 0 % (0-5); Neutrophil # 5.16 X10^3/uL (2.7-7.7); Neutrophil % 58.8 % (47-70); Platelet Count 502 K/mm3 (150-450); RBC Distribution Width CV 12.3 % (11.6-14.6); Red Blood Count 5.01 M/mm3 (4.6-6.2); White Blood Count 8.8 K/mm3 (4.4-11.0)
[2019-12-27] MEDS: dexAMETHasone 10 MG/ML Vial IV (13:17)
--- NOTE | 2019-12-27 13:18 | NURSING ---
CHEMISTRIES HEMOLIZED
[2019-12-27 14:00] LABS: Anion Gap 8 (5-15); BUN 31 mg/dL (7-18); BUN/Creat Ratio 21.7 RATIO (10-20); Calcium,Total 8.9 mg/dL (8.5-10.1); Chloride 107 mmol/L (98-107); Creatinine, Serum 1.43 mg/dL (0.70-1.30); EST Glomerular Filtration Rate 53 mL/min (>60); Est Glom Filt Rate - Afr Amer 64 mL/min (>60); Estimated Creatinine Clearance 46.47 ml/min; Glucose 169 mg/dL (74-106); Potassium 3.9 mmol/L (3.5-5.1); Sodium Level 139 mmol/L (136-145)
--- NOTE | 2019-12-27 15:49 | ED.DEP ---
ED Disposition - Plan for ED Patient: Disposition: Home or Assisted Living Prescriptions: Dexamethasone [Decadron] 6 mg PO DAILY 5 Days tab Prescription Printed Referrals: Kate Galicia MD [Primary Care Provider] - 3-5 Days Additional Instructions: Decadron daily for the next 5 days. Follow-up with your doctor to ensure you are improving. Return emergency department if you are feeling a lot worse.
[2019-12-27 15:52] VITALS: O2SAT 97
[2019-12-27 16:14] VITALS: BP 103/68; PULSE 58; RESP 16; O2SAT 97; O2SAT 98
== END 2019-12-27 17:02 | disposition home or self-care (01) ==
PROVIDERS: Emergency Provider Emergency Medicine; PCP Internal Medicine
DX: U07.1 COVID-19 (principal); R06.00 Dyspnea, unspecified; E11.9 Type 2 diabetes mellitus without complications; I10 Essential (primary) hypertension; Z79.84 Long term (current) use of oral hypoglycemic drugs; Z79.82 Long term (current) use of aspirin; Z79.899 Other long term (current) drug therapy; Z87.442 Personal history of urinary calculi
CPT/HCPCS: 71045; 80048; 85025; 96374; 99285; A4216

== ENCOUNTER → 2020-01-04 13:55 | Outpatient (CLI) | payer MEDICARE, BC, SELFPAY ==
[2019-12-27 12:36] VITALS: BMI 33.3
--- NOTE | 2020-01-04 14:06 | RAD_ITS ---
STUDY: X-RAY CHEST REASON FOR EXAM: Male, 64 years old. tested positive for COVID 3 weeks ago -- pulmonary infiltrate TECHNIQUE: PA and lateral views of the chest. COMPARISON: Previous study of 12/27/2019 FINDINGS: There are mild streaky densities of the left midlung field and right lung base, improved from the previous study. There is no demonstrated pleural abnormality. Normal size heart. Normal mediastinum and robe. Normal visualized pulmonary arteries. Normal visualized aortic arch and descending thoracic aorta. There is endplate spondylosis of the thoracic spine. Normal visualized ribs, clavicles, and shoulders. There is no demonstrated abnormality of the visualized soft tissue structures of the upper abdomen. RAD/Chest PA and Lateral IMPRESSION: Streaky densities of the left midlung field and right lung base, improved from the previous study. There is no evidence of myke infiltrate at this time. Endplate spondylosis of the thoracic spine. Electronically Signed: Arpit Bullock MD at 17:40 EDT , Service support ,
== END ==
PROVIDERS: PCP Internal Medicine; Visit Provider Internal Medicine
DX: R91.8 Other nonspecific abnormal finding of lung field (principal)
CPT/HCPCS: 71046

== ENCOUNTER 2021-10-27 17:54 | Emergency (ER) | payer MEDICARE, BC, SELFPAY ==
[2021-10-27 17:56] VITALS: BP 145/88; PULSE 76; RESP 18; TEMP 36.4; O2SAT 97; BMI 37.8
--- NOTE | 2021-10-27 18:23 | EX.ED.DYSGE1 ---
HPI History of Present Illness Chief Complaint: General Illness Detail of Chief Complaint: General illness with nausea and diarrhea Informant: patient and spouse/S.O. Onset/Context/Timing Onset: Weeks (Diarrhea started 1 week ago) Context: Sudden Onset Timing: Intermittent Quality: Achy generalized abdominal pain Location: Generalized Current Severity: Mild Maximum Severity: Moderate Worsened by: Every time patient eats he states he has diarrhea Relieved by: Nothing Associated Symptoms Associated Symptoms: Thirst and lightheadedness Narrative Narrative: Patient is a 66-year-old male with history of hypertension, hyperlipidemia and type 2 diabetes. Blood sugar last evening was 179. Last A1c was 7.1. Patient had a COVID test 3 days ago at the [facility] which was negative. He denies fever, chills night sweats. Denies headache. Denies visual, ocular auditory symptoms. He denies cardiac or respiratory symptoms. He denies urologic symptoms. He denies paresthesia, anesthesia or motor weakness. Prior similar symptoms: No Recent Illness/Hospitalization: No PFSH PFSH Home Medications acidophilus-pectin, citrus 1 tab PO BID 10/30/13 [History Last Taken 12/17/19] allopurinol 300 mg PO DAILY 10/30/13 [History Last Taken 12/17/19] aspirin 81 mg PO DAILY@0800 10/30/13 [History Last Taken 12/17/19] pravastatin 40 mg PO DAILY 05/22/14 [History Last Taken 12/17/19] albuterol sulfate 2 puff INHALATION Q4H PRN PRN 12/11/19 [History Last Taken 12/18/19] amlodipine 5 mg PO DAILY 12/11/19 [History Last Taken 12/17/19] losartan 100 mg PO DAILY 12/11/19 [History Last Taken 12/17/19] metformin 1,000 mg PO BID 12/11/19 [History Last Taken 12/17/19] metoprolol succinate 50 mg PO DAILY 12/11/19 [History Last Taken 12/17/19] pioglitazone 15 mg PO QHS 12/11/19 [History Last Taken 12/17/19] benzonatate 200 mg PO Q4H PRN PRN cap 12/20/19 [Rx Last Taken Unknown] codeine-guaifenesin 10 ml PO Q4H PRN PRN #8 oz 12/20/19 [Rx Last Taken Unknown] dexamethasone 6 mg PO DAILY@0800 #9 tab 12/20/19 [Rx Last Taken Unknown] dexamethasone 6 mg PO DAILY 5 Days tab 12/27/19 [Rx Last Taken Unknown] ondansetron 4 mg PO Q8H PRN PRN #10 tab 10/27/21 [Rx Last Taken Unknown] Allergy/AdvReac Type Severity Reaction Status Date / Time clarithromycin [From Biaxin] Allergy Hives Verified 10/27/21 17:59 Sulfa (Sulfonamide Allergy Hives Verified 10/27/21 17:59 Antibiotics) hydralazine AdvReac Other Verified 10/27/21 17:59 Social History (Updated 10/27/21 @ 18:[address] Anupam Perry MD) household members: spouse Smoking Status: Never smoker substance use type: does not use ROS ROS ED Constitutional Constitutional ED: Denies chills, fever(s), subjective, sweats or weight loss Eyes Eyes: Denies blurry vision, change in vision or diplopia ENT ENT ED: Denies ear pain, rhinorrhea or sore throat Cardiovascular Cardiovascular: Denies chest pain or palpitations Respiratory/Chest Respiratory/Chest: Denies cough, dyspnea or dyspnea on exertion Gastrointestinal Gastrointestinal: Reports abdominal pain, diarrhea and nausea; Denies constipation, melena or vomiting Genitourinary Genitourinary ED: Reports other Details: He denies swelling of his scrotum or testicles. He denies rash. ; Denies dysuria, hematuria or urinary frequency Musculoskeletal Musculoskeletal: Denies arthralgias, myalgias or neck pain Integumentary Denies Abrasions or rash Neurologic Neurologic: Reports weakness; Denies headache(s) or paresthesias Endocrine Endocrinology: Denies polydipsia, polyphagia or polyuria EXAM Physical Exam Const Vital Signs: 10/27/21 17:56 10/27/21 18:43 Temperature 97.6 F L Temperature Source Oral Pulse Rate 76 Respiratory Rate 18 Respiratory Pattern Normal Blood Pressure 145/88 H Blood Pressure Mean 107 Pulse Ox 97 Oxygen Delivery Method Room Air Positive well nourished, well developed and obese General Appearance ED: well developed and NAD; Negative for cyanotic, diaphoretic or pallor Nutritional Appearance: obese HEENT Reports TM's clear and dry mucous membranes HEENT Narrative: Nares patent. Posterior pharynx out erythema or exudate. Uvula is midline. Negative for trauma or tenderness Tympanic Membrane ED: Yes TM's clear Mouth ED: Yes dry mucous membranes Mouth: dry mucous membranes Eyes PERRL and EOMs intact bilaterally General Eye ED: Negative for pale conjunctiva or scleral icterus Neck no lymphadenopathy, supple and no JVD Chest Wall palpation of chest normal Resp normal respiratory effort and clear to auscultation bilaterally Cardio regular rate, regular rhythm, S1 normal heart sound, S2 normal heart sound and no murmurs GI normal to inspection, nondistended, normoactive bowel sounds; Negative for non-tender or hepatosplenomegaly Palpation: soft and tender other (Diffuse); Negative for guarding, mass or rebound tenderness present Back/Spine no CVA tenderness Extremity normal to inspection General Extremety ED: Negative for edema or tenderness General Extremity: Negative for edema Neuro oriented x3, CN's II-XII intact bilaterally and no sensory deficits noted Sensorium / Orientation: alert Motor Exam: strength 5/5 throughout Psych mental status grossly normal Skin no rashes or lesions noted, no wounds and skin turgor normal General Skin Exam: elasticity normal; Negative for jaundice or pallor MDM MDM MDM Narrative Medical decision making narrative: Reported diarrhea for 1 week history of hypertension diabetes will obtain basic metabolic panel to assess renal function, glucose and CO2/anion gap. CBC to assess white count and differential. Since clinically patient is dehydrated he was treated with 1 L of normal saline wide open. Lab Data Attestation: I reviewed the patient's lab results. Lab results narrative: Basic metabolic panel is remarkable for a nonanion gap acidosis. Creatinine is elevated 1.31, which is chronic. Labs: Laboratory Results - last 24 hr 10/27/21 10/27/21 18:50 18:50 WBC 6.4 RBC 4.62 Hgb 13.6 Hct 42.7 MCV 92.4 MCH 29.4 MCHC 31.9 L RDW Std Deviation 44.5 H RDW Coeff of Gerri 13.2 Plt Count 171 MPV 10.5 Immature Gran % (Auto) 0.300 Neut % (Auto) 57.4 Lymph % (Auto) 33.2 [place] % (Auto) 7.5 Eos % (Auto) 1.1 Baso % (Auto) 0.5 Absolute Neuts (auto) 3.7 Absolute Lymphs (auto) 2.14 Nucleated RBC % 0 Platelet Estimate ADEQUATE Plt Morphology Comment LARGE RBC Morphology N CHROM Anisocytosis RARE Sodium 134 L Potassium 4.9 Chloride 109 H Carbon Dioxide 18.0 L Anion Gap 7 BUN 22 H Creatinine 1.31 H Estim Creat Clear Calc 49.38 Est GFR (MDRD) Af Amer 70 Est GFR (MDRD) Non-Af 58 L BUN/Creatinine Ratio 16.8 Glucose 89 Calcium 9.6 Discharge Plan Triage Chief Complaint: General Illness ED Provider: Anupam Perry Dx/Rx/DC Orders Clinical Impression: Diarrhea, Nausea, Acidosis, Chronic kidney insufficiency, Acute dehydration Instructions: ED Diarrhea, Unknown Cause Prescriptions: New ondansetron [ondansetron] 4 MG tablet 4 mg PO Q8H PRN PRN (Reason: Nausea) Qty: 10 RF: 0 No Action aspirin 81 MG tablet,chewable 81 mg PO DAILY@0800 RF: 0 allopurinol 300 MG tablet 300 mg PO DAILY RF: 0 acidophilus-pectin, citrus 1 TABLET tablet 1 tab PO BID RF: 0 pravastatin 40 MG tablet 40 mg PO DAILY RF: 0 pioglitazone 15 MG tablet 15 mg PO QHS RF: 0 metoprolol succinate 50 MG tablet extended release 24 hr 50 mg PO DAILY RF: 0 amlodipine 5 MG tablet 5 mg PO DAILY RF: 0 losartan 100 MG tablet 100 mg PO DAILY RF: 0 albuterol sulfate 90 mcg/actuation HFA aerosol inhaler 2 puff inhalation Q4H PRN PRN (Reason: Sob &/Or Wheezing) RF: 0 metformin 500 MG tablet extended release 24 hr 1,000 mg PO BID RF: 0 benzonatate 100 MG capsule 200 mg PO Q4H PRN PRN (Reason: COUGH) RF: 0 dexamethasone 4 MG tablet 6 mg PO DAILY@0800 Qty: 9 RF: 0 codeine-guaifenesin 5 ML liquid 10 ml PO Q4H PRN PRN (Reason: COUGH) Qty: 8 RF: 0 dexamethasone 6 MG tablet 6 mg PO DAILY 5 Days RF: 0 Primary Care Provider: Kate Galicia Referrals: Kate Galicia MD [Primary Care Provider] - 1 Week if not improving Activity Restrictions/Additional Instructions: 1. Increase fluid intake 2. You may take 1 Imodium with each loose stool up to 6 and a 24-hour. Disposition Disposition: Home, Self Care
[2021-10-27] MEDS: 0.9% Normal Saline 1,000 ML 1000 ML IV (18:53)
[2021-10-27 19:02] LABS: Absolute Lymphocyte Count 2.14 X10^3/uL (0.83-4.51); Absolute Neutrophil Count 3.7 X10^3/uL (2.0-7.7); Basophil# 0.03 X10^3/uL; Basophil% 0.5 % (0-1); Eosinophil# 0.07 X10^3/uL; Eosinophils% 1.1 % (0-5); Hematocrit 42.7 % (40-54); Hemoglobin 13.6 g/dL (13.0-16.5); Lymphocyte # 2.14 X10^3/ul (0.83-4.51); Lymphocyte % 33.2 % (19-41); Mean Corp Hgb Conc 31.9 g/dL (32-36); Mean Corpuscular Hgb 29.4 pg (27.0-32.0); Mean Corpuscular Volume 92.4 fL (80-94); Mean Platelet Vol. 10.5 fl (6.2-12.0); Monocyte# 0.48 X10^3/uL; Monocyte% 7.5 % (0-10); NRBC Flagged by Analyzer 0 % (0-5); Neutrophil % 57.4 % (47-70); POSITIVE COUNT YES; Platelet Count 171 K/mm3 (150-450); RBC Distribution Width CV 13.2 % (11.6-14.6); RBC Distribution Width SD 44.5 fl (35.1-43.9); Red Blood Count 4.62 M/mm3 (4.6-6.2); White Blood Count 6.4 K/mm3 (4.4-11.0)
[2021-10-27 19:10] LABS: Differential Indicated SCAN CRITERIA MET
[2021-10-27 19:22] LABS: Anisocytosis RARE; Platelet Estimate ADEQUATE (ADEQ); Platelet Morphology LARGE; Red Cell Morphology N CHROM NORMAL (NORM C&C)
[2021-10-27] MEDS: Loperamide 2 MG Capsule 4 MG PO (19:31)
[2021-10-27 19:39] LABS: Anion Gap 7 (5-15); BUN 22 mg/dL (7-18); BUN/Creat Ratio 16.8 RATIO (10-20); Calcium,Total 9.6 mg/dL (8.5-10.1); Chloride 109 mmol/L (98-107); Creatinine, Serum 1.31 mg/dL (0.70-1.30); EST Glomerular Filtration Rate 58 mL/min (>60); Est Glom Filt Rate - Afr Amer 70 mL/min (>60); Estimated Creatinine Clearance 49.38 ml/min; Glucose 89 mg/dL (74-106); Potassium 4.9 mmol/L (3.5-5.1); Sodium Level 134 mmol/L (136-145)
[2021-10-27 20:12] VITALS: BP 132/78; PULSE 78; RESP 16; O2SAT 98
== END 2021-10-27 20:14 | disposition home or self-care (01) ==
PROVIDERS: Emergency Provider Emergency Medicine; PCP Internal Medicine; Visit Provider Emergency Medicine
DX: R19.7 Diarrhea, unspecified (principal); E11.22 Type 2 diabetes mellitus with diabetic chronic kidney disease; E87.2 Acidosis; E86.0 Dehydration; I12.9 Hypertensive chronic kidney disease with stage 1 through stage 4 chronic kidney disease, or unspecified chronic kidney disease; N18.9 Chronic kidney disease, unspecified; E78.5 Hyperlipidemia, unspecified; R10.84 Generalized abdominal pain; E66.9 Obesity, unspecified; Z79.82 Long term (current) use of aspirin; Z79.84 Long term (current) use of oral hypoglycemic drugs; Z79.899 Other long term (current) drug therapy
CPT/HCPCS: 80048; 85025; 96360; 99283; J7030; A4216

== ENCOUNTER 2023-03-04 13:04 | Emergency (ER) | payer MEDICARE, BC, SELFPAY ==
[2023-03-04 13:05] VITALS: BP 129/87; PULSE 108; RESP 18; TEMP 36.4; O2SAT 97; BMI 36.6
[2023-03-04 13:29] LABS: Absolute Lymphocyte Count 1.25 X10^3/uL (0.83-4.51); Absolute Neutrophil Count 7.3 X10^3/uL (2.0-7.7); Basophil# 0.04 X10^3/uL; Basophil% 0.4 % (0-1); Eosinophil# 0.03 X10^3/uL; Eosinophils% 0.3 % (0-5); Hematocrit 44.8 % (40-54); Hemoglobin 15.1 g/dL (13.0-16.5); Lymphocyte # 1.25 X10^3/ul (0.83-4.51); Lymphocyte % 12.8 % (19-41); Mean Corp Hgb Conc 33.7 g/dL (32-36); Mean Corpuscular Hgb 29.6 pg (27.0-32.0); Mean Corpuscular Volume 87.8 fL (80-94); Mean Platelet Vol. 9.6 fl (6.2-12.0); Monocyte# 1.15 X10^3/uL; Monocyte% 11.8 % (0-10); NRBC Flagged by Analyzer 0 % (0-5); Neutrophil # 7.27 X10^3/uL (2.7-7.7); Neutrophil % 74.3 % (47-70); Platelet Count 333 K/mm3 (150-450); RBC Distribution Width CV 13.1 % (11.6-14.6); RBC Distribution Width SD 42.2 fl (35.1-43.9); White Blood Count 9.8 K/mm3 (4.4-11.0)
[2023-03-04 13:30] VITALS: BP 129/87; PULSE 108; RESP 18; TEMP 36.4; O2SAT 97
[2023-03-04 13:36] LABS: Anion Gap 8 (5-15); BUN 22 mg/dL (7-18); BUN/Creat Ratio 13.5 RATIO (10-20); Calcium,Total 9.7 mg/dL (8.5-10.1); Chloride 103 mmol/L (98-107); Creatinine, Serum 1.63 mg/dL (0.70-1.30); EST Glomerular Filtration Rate 45 mL/min (>60); Est Glom Filt Rate - Afr Amer 54 mL/min (>60); Estimated Creatinine Clearance 39.14 ml/min; Glucose 183 mg/dL (74-106); Potassium 4.2 mmol/L (3.5-5.1); Sodium Level 133 mmol/L (136-145)
--- NOTE | 2023-03-04 14:37 | ED.VIS.DYS ---
HPI History of Present Illness Chief Complaint: Shortness of Breath PFSH PFSH Home Medications acidophilus 25 million cell-pectin, citrus 100 mg tablet 1 tab PO BID immune health 10/30/13 [History Last Taken 12/17/19] allopurinol 300 mg tablet 300 mg PO DAILY gout 10/30/13 [History Last Taken 12/17/19] aspirin 81 mg chewable tablet 81 mg PO DAILY@0800 heart health 10/30/13 [History Last Taken 12/17/19] pravastatin 40 mg tablet 40 mg PO DAILY cholesterol 05/22/14 [History Last Taken 12/17/19] albuterol sulfate 90 mcg/actuation aerosol inhaler 2 puff inhalation Q4H PRN PRN Sob &/Or Wheezing 12/11/19 [History Last Taken 12/18/19] amlodipine 5 mg tablet 5 mg PO DAILY bp 12/11/19 [History Last Taken 12/17/19] losartan 100 mg tablet 100 mg PO DAILY bp 12/11/19 [History Last Taken 12/17/19] metformin 500 mg tablet,extended release 24 hr 1,000 mg PO BID dm 12/11/19 [History Last Taken 12/17/19] metoprolol succinate 50 mg tablet,extended release 24 hr 50 mg PO DAILY bp 12/11/19 [History Last Taken 12/17/19] pioglitazone 15 mg tablet 15 mg PO QHS dm 12/11/19 [History Last Taken 12/17/19] benzonatate 100 mg capsule 200 mg (2 x 100 mg) PO Q4H PRN PRN COUGH 12/20/19 [Rx Last Taken Unknown] codeine 10 mg-guaifenesin 100 mg/5 mL oral liquid 10 ml PO Q4H PRN PRN COUGH #8 oz 12/20/19 [Rx Last Taken Unknown] dexamethasone 4 mg tablet 6 mg (1.5 x 4 mg) PO DAILY@0800 #9 tabs 12/20/19 [Rx Last Taken Unknown] dexamethasone 6 mg tablet 6 mg PO DAILY 5 days 12/27/19 [Rx Last Taken Unknown] ondansetron 4 mg disintegrating tablet 4 mg PO Q8H PRN PRN Nausea #10 tabs 10/27/21 [Rx Last Taken Unknown] nirmatrelvir 300 mg (150 mg x2)-ritonavir 100 mg tablet,dose pack (Paxlovid) See Rx Instructions PO .COMPLEX #30 tabs 03/04/23 [Rx Last Taken Unknown] Allergy/AdvReac Type Severity Reaction Status Date / Time clarithromycin [From Biaxin] Allergy Hives Verified 03/04/23 13:06 Sulfa (Sulfonamide Allergy Hives Verified 03/04/23 13:06 Antibiotics) hydralazine AdvReac Other Verified 03/04/23 13:06 Social History (Updated 10/27/21 @ 18:[address] Anupam Perry MD) household members: spouse Smoking Status: Never smoker substance use type: does not use EXAM Physical Exam Const Vital Signs: 03/04/23 13:05 03/04/23 13:30 03/04/23 13:30 Temperature 97.5 F L 97.5 F L Temperature Source Temporal Oral Pulse Rate 108 H 108 H Respiratory Rate 18 18 Respiratory Effort Respiratory Depth Respiratory Pattern Blood Pressure 129/87 H 129/87 H Blood Pressure Mean 101 101 Pulse Ox 97 97 Oxygen Delivery Method Room Air Room Air Room Air 03/04/23 13:30 03/04/23 13:30 03/04/23 16:25 Temperature Temperature Source Pulse Rate 90 Respiratory Rate 16 Respiratory Effort Normal Respiratory Depth Normal Respiratory Pattern Normal Blood Pressure 110/76 Blood Pressure Mean 87 Pulse Ox 97 98 Oxygen Delivery Method Room Air Room Air Room Air MDM MDM MDM Narrative Medical decision making narrative: HISTORY OF PRESENT ILLNESS: 67-year-old male here for shortness of breath. He states he was recent diagnosed with pneumonia. He states his has COVID. He further states he was seen at urgent care prior to arrival. States he had x-ray there which showed a left-sided pneumonia. He was prescribed doxycycline. Date of symptom onset was 4 days ago. He does note chest pain with cough. He denies any hemoptysis. He denies any other PE risk factors. Denies any lower extremity edema, orthopnea or paroxysmal nocturnal dyspnea. Denies any vomiting or diarrhea. REVIEW OF SYSTEMS: Pertinent positives: Shortness of breath, cough, chest pain Pertinent negatives: Leg swelling, syncope PHYSICAL EXAM: Nursing triage notes reviewed, Vital signs reviewed Constitutional: please see mdm HENT: MMM Eyes: Pupils equal round and reactive to light, Extraocular muscles intact Neck: No stridor, no JVD, full neck ROM Lungs: Clear to auscultation, No wheezing or rales. Focal auscultated consolidative process noted in the left lung mora. No increased work of breathing, no conversational dyspnea, no accessory muscle use, no nasal flaring. No respiratory distress noted Heart: Regular rate and rhythm, No murmurs, No rubs and No gallops, 2+ distal pulses (radial, femoral, posterior tibial) in all extremities Abdomen: Soft, there is no tenderness, rigidity, rebound or guarding, no obvious peritoneal signs, no palpable pulsatile abdominal masses, no auscultated abdominal bruit : No CVAT Extremities: No edema Neuro: No focal neurological deficits, cranial nerves II through XII intact, 5/5 strength in all extremities. Intact sensation to light touch in all extremities, 2+ reflexes bilateral patella tendons. Normal gait. No ataxia. Skin: No rash or lesions noted MEDICAL DECISION MAKING: Chief Complaint: Shortness of breath External records reviewed: Prior ED notes reviewed: Last ED visit in October 2021. Factors affecting care: COPD, type 2 diabetes Social determinants of health: none History obtained from others: none Consults: none [facility] Narrative: Patient was initially mildly tachycardic otherwise hemodynamically stable, afebrile, nontoxic-appearing. I considered the following differential diagnosis: Pneumonia, COVID, ACS, arrhythmia, anemia, electrolyte disturbance, PE, dissection I considered pulmonary embolism as a potential etiology however patient low risk Wells score and as such have a low suspicion for PE. No indication for D-dimer or CTA chest at this time. I obtained a broad lab and imaging work-up to further elucidate the etiology of the patient's complaints. I treated the patient 1 L normal saline, Toradol and codeine for symptomatic relief. ALL IMAGES (IF OBTAINED) HAVE BEEN PERSONALLY REVIEWED AND INTERPRETED BY MYSELF. EKG with sinus tachycardia, normal axis, normal intervals, no STEMI CBC without leukocytosis, severe anemia, no thrombocytopenia. BMP with mild hyponatremia, noted CKD, no MEHUL Chest x-ray read reviewed myself shows evidence of a right lower lobe infiltrate likely pneumonia. Patient was COVID-positive. Troponin is negative, no evidence of myocardial ischemia The synthesis of the patient's labs and images history and physical exam consistent with likely viral and bacterial pneumonia. The patient ambulated here without significant hypoxia. He is appropriate for home treatment. He is already on doxycycline. We will give Paxlovid given he is on day 4 of symptoms and he had respiratory failure from COVID in the past. Gave strict return precautions and follow-up instructions The patient and/or family, caregivers express understanding. The patient and/or family, caregivers agrees with the plan. Shared decision making: I will have a discussion with the patient and or visitors regarding risk/benefits of further testing or admission. They will be made aware of of the risk/benefits inherent in this decision they will be given the opportunity to voice understanding. Total critical care time today provided was at least 0 [] minutes. This excludes separately billable procedures. Critical care time (if documented) is secondary to the patient having high probability of clinically significant/life threatening deterioration in the patient's condition which required my urgent intervention. Impression: 1. COVID-19 2. Bacterial pneumonia 3. Dyspnea 4. CKD Dispo: Discharge Lab Data Attestation: I reviewed the patient's lab results. Labs: Laboratory Results - last 24 hr 03/04/23 03/04/23 13:17 16:25 WBC 9.8 RBC 5.10 Hgb 15.1 Hct 44.8 MCV 87.8 MCH 29.6 MCHC 33.7 RDW Std Deviation 42.2 RDW Coeff of Gerri 13.1 Plt Count 333 MPV 9.6 Immature Gran % (Auto) 0.400 Neut % (Auto) 74.3 H Lymph % (Auto) 12.8 L [place] % (Auto) 11.8 H Eos % (Auto) 0.3 Baso % (Auto) 0.4 Absolute Neuts (auto) 7.3 Absolute Lymphs (auto) 1.25 Nucleated RBC % 0 Sodium 133 L Potassium 4.2 Chloride 103 Carbon Dioxide 22.0 Anion Gap 8 BUN 22 H Creatinine 1.63 H Estim Creat Clear Calc 39.14 Est GFR (MDRD) Af Amer 54 L Est GFR (MDRD) Non-Af 45 L BUN/Creatinine Ratio 13.5 Glucose 183 H Calcium 9.7 Troponin I High Sens 4 Radiography Diagnostic Testing: Clinical Impression(s) from Imaging Studies Chest X-Ray 03/04/23 15:13 IMPRESSION: Mild right lower lobe atelectasis or pneumonia. Electronically Signed: Audra Pelletier MD at 15:30 EDT Reading Location ID and State: [facility] / [place] Tel , Service support , Discharge Plan Triage Chief Complaint: Shortness of Breath ED Provider: Cuco Lay Dx/Rx/DC Orders Instructions: ED Pneumonia (Adult) Prescriptions: New Paxlovid 300 mg (150 mg x 2)-100 mg tablets,dose pack See Rx Instructions .ROUTE .COMPLEX Qty: 30 0RF Rx Instructions: take TWO 150 mg tablets of nirmatrelvir with ONE 100 mg tablet of ritonavir twice daily for 5 days No Action aspirin 81 MG tablet,chewable 81 mg PO DAILY@0800 Patient Comments: [facility] allopurinol 300 MG tablet 300 mg PO DAILY Patient Comments: GOUT acidophilus-pectin, citrus 1 TABLET tablet 1 tab PO BID Patient Comments: supplement pravastatin 40 MG tablet 40 mg PO DAILY Patient Comments: CHOLESTEROL pioglitazone 15 MG tablet 15 mg PO QHS metoprolol succinate 50 MG tablet extended release 24 hr 50 mg PO DAILY amlodipine 5 MG tablet 5 mg PO DAILY losartan 100 MG tablet 100 mg PO DAILY albuterol sulfate 90 mcg/actuation HFA aerosol inhaler 2 puff inhalation Q4H PRN PRN (Reason: Sob &/Or Wheezing) metformin 500 MG tablet extended release 24 hr 1,000 mg PO BID benzonatate 100 MG capsule 200 mg PO Q4H PRN PRN (Reason: COUGH) 0RF dexamethasone 4 MG tablet 6 mg PO DAILY@0800 Qty: 9 0RF codeine-guaifenesin 5 ML liquid 10 ml PO Q4H PRN PRN (Reason: COUGH) Qty: 8 0RF dexamethasone 6 MG tablet 6 mg PO DAILY 5 Days 0RF ondansetron [ondansetron] 4 MG tablet 4 mg PO Q8H PRN PRN (Reason: Nausea) Qty: 10 0RF Stand Alone Forms: ED Work / School Excuse Primary Care Provider: Kate Galicia Referrals: Kate Galicia MD [Primary Care Provider] - Activity Restrictions/Additional Instructions: Thank you for trusting us with your care today! Please take Tylenol (2 pills, 650 mg), ibuprofen (2 pills, 400 mg) every 6 hours as needed for pain and fever control. Please take your prescribed doxycycline as well as start Paxlovid to decrease risk of bacterial and viral infection. Please return to the emergency department if your symptoms change or worsen. Specifically develop worsening shortness of breath, you cannot take medicine by mouth, you lose consciousness. Per CDC guidelines you should isolate for 5 days from time of symptom onset. At this point time he should wear a mask chest pain usual activities. At day 10 if you are asymptomatic you may discontinue wearing your mask per CDC guidelines. Please follow with your primary care physician for further outpatient evaluation and management. Disposition Disposition: Home, Self Care
--- NOTE | 2023-03-04 14:40 | EKG12_ITS ---
Test Reason : SOB Blood Pressure : / mmHG Vent. 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
[2023-03-04] MEDS: Acetaminophen/Codeine #3 Tablet 1 TABLET PO (15:12)
[2023-03-04] MEDS: Ketorolac 15 MG/ML Vial IV (15:12)
--- NOTE | 2023-03-04 15:13 | RAD_ITS ---
HISTORY: SOB, r/o PNA. TECHNIQUE: XR Chest 2 Views. COMPARISON: None. FINDINGS: CARDIOMEDIASTINAL BORDERS: Cardiac silhouette within normal limits in size. Mediastinal contour unremarkable. LUNGS: Mild right lower lobe opacity with elevation of the right hemidiaphragm. PLEURA: No pleural effusion or pneumothorax seen. OSSEOUS STRUCTURES: Osteophytes present. RAD/Chest PA and Lateral IMPRESSION: Mild right lower lobe atelectasis or pneumonia. Electronically Signed: Audra Pelletier MD at 15:30 EDT ,
[2023-03-04] MEDS: 0.9% Normal Saline (500mL Bag) 500 ML 1000 ML IV (15:14)
[2023-03-04 16:17] VITALS: O2SAT 98
[2023-03-04 16:25] VITALS: BP 110/76; PULSE 90; RESP 16; O2SAT 98
[2023-03-04 16:58] LABS: Troponin-I HS 4 pg/mL (3.0-78.0)
== END 2023-03-04 17:37 | disposition home or self-care (01) ==
PROVIDERS: Emergency Provider Emergency Medicine; PCP Internal Medicine; Visit Provider Emergency Medicine
DX: U07.1 COVID-19 (principal); J44.0 Chronic obstructive pulmonary disease with (acute) lower respiratory infection; E11.22 Type 2 diabetes mellitus with diabetic chronic kidney disease; J15.9 Unspecified bacterial pneumonia; N18.9 Chronic kidney disease, unspecified; E87.1 Hypo-osmolality and hyponatremia; Z79.82 Long term (current) use of aspirin; Z79.84 Long term (current) use of oral hypoglycemic drugs; Z79.899 Other long term (current) drug therapy
CPT/HCPCS: 71046; 80048; 84484; 85025; 87428; 93005; 94760; 96361; 96374; 99283; J7040; A4216

== ENCOUNTER 2023-05-29 12:25 | Emergency (ER) | payer MEDICARE, BC, SELFPAY ==
[2023-05-29 12:26] VITALS: BP 143/78; PULSE 64; RESP 14; TEMP 36.4; O2SAT 98; BMI 37.2
--- NOTE | 2023-05-29 12:33 | RAD_ITS ---
INDICATION: INJURY EXAMINATION/TECHNIQUE: X-RAY - LEFT XR Hand Min 3 Views 3 VIEWS COMPARISON: No relevant prior comparison study available FINDINGS: SOFT TISSUES: No soft tissue swelling or gas. No radiopaque foreign body. BONES/JOINTS: No acute fracture or subluxation.. Old healed fracture of the fifth metacarpal. Preservation of the joint space.. No sclerotic or destructive changes observed. RAD/Hand Min 3 Views IMPRESSION: No evidence of acute fracture. Electronically Signed: Cayetano Fox MD at 12:48 EST ,
--- NOTE | 2023-05-29 14:42 | EDS_ITS ---
HPI History of Present Illness Chief Complaint: Upper Extremity Injury Narrative Narrative: 67-year-old male presenting with left hand pain. He states he had his hand stuck in an industrial bread mixer. He states he had his hand and side and his friend plug to be seated and started to mix trapping the left hand at the area of the hypothenar eminence and he had bruising and swelling in the hand since then. He was concerned about a fracture. No numbness or tingling. No lacerations or abrasions. PFSH PFSH Home Medications acidophilus 25 million cell-pectin, citrus 100 mg tablet 1 tab PO BID immune health 10/30/13 [History Last Taken 12/17/19] allopurinol 300 mg tablet 300 mg PO DAILY gout 10/30/13 [History Last Taken 12/17/19] aspirin 81 mg chewable tablet 81 mg PO DAILY@0800 heart health 10/30/13 [History Last Taken 12/17/19] pravastatin 40 mg tablet 40 mg PO DAILY cholesterol 05/22/14 [History Last Taken 12/17/19] albuterol sulfate 90 mcg/actuation aerosol inhaler 2 puff inhalation Q4H PRN PRN Sob &/Or Wheezing 12/11/19 [History Last Taken 12/18/19] amlodipine 5 mg tablet 5 mg PO DAILY bp 12/11/19 [History Last Taken 12/17/19] losartan 100 mg tablet 100 mg PO DAILY bp 12/11/19 [History Last Taken 12/17/19] metformin 500 mg tablet,extended release 24 hr 1,000 mg PO BID dm 12/11/19 [History Last Taken 12/17/19] metoprolol succinate 50 mg tablet,extended release 24 hr 50 mg PO DAILY bp 12/11/19 [History Last Taken 12/17/19] pioglitazone 15 mg tablet 15 mg PO QHS dm 12/11/19 [History Last Taken 12/17/19] benzonatate 100 mg capsule 200 mg (2 x 100 mg) PO Q4H PRN PRN COUGH 12/20/19 [Rx Last Taken Unknown] codeine 10 mg-guaifenesin 100 mg/5 mL oral liquid 10 ml PO Q4H PRN PRN COUGH #8 oz 12/20/19 [Rx Last Taken Unknown] dexamethasone 4 mg tablet 6 mg (1.5 x 4 mg) PO DAILY@0800 #9 tabs 12/20/19 [Rx Last Taken Unknown] dexamethasone 6 mg tablet 6 mg PO DAILY 5 days 12/27/19 [Rx Last Taken Unknown] ondansetron 4 mg disintegrating tablet 4 mg PO Q8H PRN PRN Nausea #10 tabs 10/27/21 [Rx Last Taken Unknown] nirmatrelvir 150 mg-ritonavir 100 mg tablets in a dose pack (Paxlovid) See Rx Instructions PO .COMPLEX #20 tabs 03/04/23 [Rx Last Taken Unknown] nirmatrelvir 150 mg-ritonavir 100 mg tablets in a dose pack (Paxlovid) See Rx Instructions PO .COMPLEX #20 tabs 03/04/23 [Rx Last Taken Unknown] nirmatrelvir 300 mg (150 mg x2)-ritonavir 100 mg tablet,dose pack (Paxlovid) See Rx Instructions PO .COMPLEX #30 tabs 03/04/23 [Rx Last Taken Unknown] hydrocodone-acetaminophen 5-325mg 5mg-325mg 1 tab PO Q6H PRN PRN Pain 3 days #12 TABLETS 05/29/23 [Rx Last Taken Unknown] Allergy/AdvReac Type Severity Reaction Status Date / Time clarithromycin [From Biaxin] Allergy Hives Verified 05/29/23 12:25 Sulfa (Sulfonamide Allergy Hives Verified 05/29/23 12:25 Antibiotics) hydralazine AdvReac Other Verified 05/29/23 12:25 Social History household members: spouse Smoking Status: Never smoker substance use type: does not use ROS ROS ED Constitutional Constitutional ED: Denies chills, fever(s) or sweats Eyes Eyes: Denies blurry vision or change in vision ENT ENT ED: Denies ear pain or sore throat Cardiovascular Cardiovascular: Denies chest pain, palpitations or racing heartbeat Respiratory/Chest Respiratory/Chest: Denies cough, dyspnea or sputum Gastrointestinal Gastrointestinal: Denies abdominal pain, constipation, diarrhea, nausea or vomiting Genitourinary Genitourinary ED: Denies dysuria, hematuria or urinary frequency Musculoskeletal Musculoskeletal: Reports other Details: Left hand pain ; Denies arthralgias, myalgias or neck pain Integumentary Denies abscess, Abrasions or rash Neurologic Neurologic: Denies headache(s), paresthesias or weakness Psychiatric Psychiatric: Denies anxiety, depression, suicidal ideation or suicidal thoughts Endocrine Endocrinology: Denies polydipsia or polyuria EXAM Physical Exam Const Vital Signs: 05/29/23 12:26 Temperature 97.6 F L Temperature Source Temporal Pulse Rate 64 Respiratory Rate 14 Blood Pressure 143/78 H Blood Pressure Mean 99 Pulse Ox 98 Oxygen Delivery Method Room Air Positive well nourished General Appearance ED: NAD HEENT Reports moist mucous membranes normocephalic Eyes PERRL and EOMs intact bilaterally Neck full ROM Extremity Extremity Narrative: Bruising and swelling noted to the hypothenar eminence. Laceration or abrasion. Left hand neurovascular intact brisk cap refill to all 5 fingers. Strength 5/5 throughout. Neuro oriented x3 Sensorium / Orientation: alert Psych mental status grossly normal MDM MDM MDM Narrative Medical decision making narrative: Presenting with hand pain after having trapped in a industrial bread mixer. No lacerations or abrasions are appreciated. Does have some bruising and swelling noted to the hand. Patient treated with [place] 5 mg p.o. X-ray of the left hand on my interpretation shows no acute fracture or subluxation. Patient counseled findings. Instructed to use ice, elevation, rest. He is given [place] for home. Return precautions discussed. Impression: 1. Left hand contusion Radiography Diagnostic Testing: Clinical Impression(s) from Imaging Studies Hand X-Ray 05/29/23 12:33 IMPRESSION: No evidence of acute fracture. Electronically Signed: Cayetano Fox MD at 12:48 EST , Discharge Plan Triage Chief Complaint: Upper Extremity Injury ED Provider: Yann Waller Dx/Rx/DC Orders Instructions: ED Hand Contusion Prescriptions: New hydrocodone-acetaminophen 5-325 mg tablet 1 tab PO Q6H PRN PRN (Reason: Pain) 3 Days Qty: 12 0RF No Action aspirin 81 MG tablet,chewable 81 mg PO DAILY@0800 Patient Comments: [facility] allopurinol 300 MG tablet 300 mg PO DAILY Patient Comments: GOUT acidophilus-pectin, citrus 1 TABLET tablet 1 tab PO BID Patient Comments: supplement pravastatin 40 MG tablet 40 mg PO DAILY Patient Comments: CHOLESTEROL pioglitazone 15 MG tablet 15 mg PO QHS metoprolol succinate 50 MG tablet extended release 24 hr 50 mg PO DAILY amlodipine 5 MG tablet 5 mg PO DAILY losartan 100 MG tablet 100 mg PO DAILY albuterol sulfate 90 mcg/actuation HFA aerosol inhaler 2 puff inhalation Q4H PRN PRN (Reason: Sob &/Or Wheezing) metformin 500 MG tablet extended release 24 hr 1,000 mg PO BID benzonatate 100 MG capsule 200 mg PO Q4H PRN PRN (Reason: COUGH) 0RF dexamethasone 4 MG tablet 6 mg PO DAILY@0800 Qty: 9 0RF codeine-guaifenesin 5 ML liquid 10 ml PO Q4H PRN PRN (Reason: COUGH) Qty: 8 0RF dexamethasone 6 MG tablet 6 mg PO DAILY 5 Days 0RF ondansetron [ondansetron] 4 MG tablet 4 mg PO Q8H PRN PRN (Reason: Nausea) Qty: 10 0RF Paxlovid 300 mg (150 mg x 2)-100 mg tablets,dose pack See Rx Instructions .ROUTE .COMPLEX Qty: 30 0RF Rx Instructions: take TWO 150 mg tablets of nirmatrelvir with ONE 100 mg tablet of ritonavir twice daily for 5 days Paxlovid 150-100 mg tablets,dose pack See Rx Instructions .ROUTE .COMPLEX Qty: 20 0RF Rx Instructions: take ONE 150 mg tablet of nirmatrelvir with ONE 100 mg tablet of ritonavir twice daily for 5 days Paxlovid 150-100 mg tablets,dose pack See Rx Instructions .ROUTE .COMPLEX Qty: 20 0RF Rx Instructions: take ONE 150 mg tablet of nirmatrelvir with ONE 100 mg tablet of ritonavir twice daily for 5 days Primary Care Provider: Kate Galicia Referrals: Kate Galicia MD [Primary Care Provider] - Disposition Disposition: Home, Self Care
[2023-05-29] MEDS: HYDROcodone Bitartrate/Apap 5/325 Tablet PO (14:46)
--- OUTSIDE RECORDS SUMMARY | 2023-05-29 14:56 | XMS RPT_ITS | CCD ---
Author Name Unknown Address [address] [place] [address] Organization [facility] Care Team Providers Care Floral Decorator Name Role Phone Payton Galicia MD Primary Care Provider [facility]ass[facility] Un[facility] Payton Galicia MD Primary Care Provider TALAMPAS, PAYTON D Primary Care Unavailable TALAMPAS, PAYTON D Primary Care Unavailable TALAMPAS, PAYTON D Referring Unavailable TALAMPAS, PAYTON D Primary Care Unavailable TALAMPAS, PAYTON D Attending Unavailable TAMERA PEREZ Attending Unavailable TALAMPAS, PAYTON D Primary Care Unavailable TALAMPAS, PAYTON D Primary Care Unavailable TALAMPAS, PAYTON D Attending Unavailable TALAMPAS, PAYTON D Referring Unavailable TALAMPAS, PAYTON D Primary Care Unavailable TALAMPAS, PAYTON D Referring Unavailable TALAMPAS, PAYTON D Primary Care Unavailable TALAMPAS, PAYTON D Attending Unavailable TALAMPAS, PAYTON D Primary Care Unavailable PEREZ, TAMERA Referring Unavailable TALAMPAS, PAYTON D Primary Care Unavailable TALAMPAS, PAYTON D Referring Unavailable TALAMPAS, PAYTON D Primary Care Unavailable PEREZTAMERA Attending Unavailable MYLES SINCLAIR Referring Unavailable TALAMPAS, PAYTON D Primary Care Unavailable TALAMPAS, PAYTON D Primary Care Unavailable TALAMPAS, PAYTON D Primary Care Unavailable VETOVITZ, MAGGY Attending Unavailable TALAMPAS, PAYTON D Referring Unavailable VETOVITZ, MAGGY Referring Unavailable TALAMPAS, PAYTON D Primary Care Unavailable Allergies Allergy Classification Reported Allergen(s) Allergy Type Date of Onset Reaction(s) Facility (20 sources) atorvastatin; Translations: [ATORVASTATIN] Drug Allergy 6 Myalgia [facility] Work Phone: (20 sources) Clarithromycin; Translations: [CLARITHROMYCIN] Drug Allergy 5 GI Upset [facility] Work Phone: (20 sources) rosuvastatin; Translations: [ROSUVASTATIN] Drug Allergy 8 Myalgia [facility] Work Phone: (20 sources) Sulfonamides (Antibiotic); Translations: [SULFA (SULFONAMIDE ANTIBIOTICS)] Drug Intolerance 5 Rash [facility] Work Phone: Medications Current Medications Medication Drug Class(es) Dates Sig (Normalized) Sig (Original) amoxicillin 875 mg / clavulanate 125 mg oral tablet (5 sources) Penicillin-class Antibacterial Start: 03-03-2022 End: 03-08-2022 take 1 tablet by mouth twice daily amoxicillin-clav ulanic acid (AUGMENTIN) 875-125 mg per tablet Indications: Bacterial sinusitis Take 1 tablet by mouth twice daily for 5 days. 10 tablet 0 03/03/2022 03/08/2022 Active Completed/Discontinued Medications Medication Drug Class(es) Dates Sig (Normalized) Sig (Original) [id number] 200 actuat albuterol 0.09 mg/actuat metered dose inhaler (2 sources) beta2-Adrenergic Agonist Start: 03-08-2023 take 2 puff(s) by inhalation every four hours as needed for wheezing albuterol HFA (VENTOLIN HFA) 90 mcg/actuation inhaler Inhale 2 Puffs as instructed every 4 hours as needed for wheezing/shortnes s of breath. 1 Each 1 03/08/2023 Active Problems Active Problems Problem Classification Problem Date Documented Da te Episodic/Chronic Aortic; peripheral; and visceral artery aneurysms (20 sources) Dilatation of aorta; Translations: [Aortic ectasia, unspecified site] Onset: 10-31-2020 10-31-2020 Chronic Diabetes mellitus with complications (20 sources) Retinopathy due to type 2 diabetes mellitus; Translations: [Type 2 diabetes mellitus with unspecified diabetic retinopathy without macular edema] Onset: 02-26-2015 05-19-2021 Chronic Diabetes mellitus without complication (3 sources) Diabetes mellitus without complication; Translations: [Type 2 diabetes mellitus without complications] Onset: 05-08-2023 Chronic Disorders of lipid metabolism (20 sources) Pure hypercholesterolemi a; Translations: [Pure hypercholesterolemi a, unspecified] Onset: 03-01-2013 03-01-2013 Chronic Diverticulosis and diverticulitis (1 source) Diverticular disease; Translations: [Diverticulosis of intestine, part unspecified, without perforation or abscess without bleeding] Chronic Essential hypertension (20 sources) Benign hypertension; Translations: [Essential (primary) hypertension] Onset: 02-26-2015 02-26-2015 Chronic Genitourinary symptoms and ill-defined conditions (3 sources) Nocturia; Translations: [Nocturia] Onset: 09-28-2022 05-09-2023 Episodic Gout and other crystal arthropathies (20 sources) Gout; Translations: [Gout, unspecified] Onset: 01-30-2005 01-30-2005 Chronic Inflammation; infection of eye (except that caused by tuberculosis or sexually transmitteddisease) (1 source) Bacterial conjunctivitis; Translations: [Unspecified conjunctivitis] 01-03-2023 Episodic Malaise and fatigue (1 source) Fatigue; Translations: [Other fatigue] Episodic Other and unspecified benign neoplasm (2 sources) History of polyp of colon; Translations: [Personal history of colonic polyps] Episodic Other connective tissue disease (1 source) Tendonitis of left shoulder; Translations: [Other enthesopathies, not elsewhere classified] 01-18-2023 Episodic Other inflammatory condition of skin (1 source) Scalp psoriasis; Translations: [Psoriasis, unspecified] 12-29-2022 Chronic Other lower respiratory disease (1 source) Cough; Translations: [Acute cough] 03-04-2023 Episodic Other non-traumatic joint disorders (2 sources) Pain in right knee; Translations: [Pain in joint, lower leg] Episodic Other nutritional; endocrine; and metabolic disorders (20 sources) Body mass index 30+ - obesity; Translations: [Obesity, unspecified] 11-14-2015 Chronic Other nutritional; endocrine; and metabolic disorders (1 source) Obesity, unspecified; Translations: [Obesity (BMI 35.0-39.9 without comorbidity)] Onset: 11-14-2015 Chronic Other screening for suspected conditions (not mental disorders or infectious disease) (7 sources) Patient encounter status; Translations: [Encounter for screening for malignant neoplasm of prostate] Onset: 09-28-2022 Episodic Other upper respiratory disease (1 source) Nasal congestion; Translations: [Nasal congestion] Episodic Other upper respiratory infections (1 source) Bacterial sinusitis; Translations: [Chronic sinusitis, unspecified] Chronic Other upper respiratory infections (1 source) Viral upper respiratory tract infection; Translations: [Acute upper respiratory infection, unspecified] 01-03-2023 Episodic Pneumonia (except that caused by tuberculosis or sexually transmitted disease) (1 source) Community acquired pneumonia; Translations: [Pneumonia, unspecified organism] 03-04-2023 Episodic Pneumonia (except that caused by tuberculosis or sexually transmitted disease) (1 source) Pneumonia (except that caused by tuberculosis or sexually transmitted disease); Translations: [Pneumonia due to COVID-19 virus] Onset: 03-15-2023 Residual codes; unclassified (1 source) Family history of prostate cancer; Translations: [Family history of malignant neoplasm of prostate] Episodic Residual codes; unclassified (1 source) Pain; Translations: [Pain, unspecified] 01-18-2023 Episodic Spondylosis; intervertebral disc disorders; other back problems (3 sources) Chronic low back pain; Translations: [Chronic midline low back pain without sciatica] Episodic Viral infection (2 sources) Disease caused by nCoV; Translations: [COVID-19] 03-08-2023 Episodic Viral infection (1 source) COVID-19; Translations: [Pneumonia due to COVID-19 virus] Onset: 03-15-2023 Past or Other Problems Problem Classification Problem Date Documented Da te Episodic/Chronic Immunizations and screening for infectious disease (12 sources) Suspected disease caused by nCoV; Translations: [Suspected COVID-19 virus infection] Onset: 09-28-2022 Episodic Other connective tissue disease (20 sources) Impingement syndrome of right shoulder region; Translations: [Impingement syndrome of right shoulder] Onset: 03-14-2019 03-14-2019 Episodic Other connective tissue disease (20 sources) Right rotator cuff syndrome; Translations: [Unspecified rotator cuff tear or rupture of right shoulder, not specified as traumatic] Onset: 03-14-2019 03-14-2019 Episodic Other injuries and conditions due to external causes (20 sources) Injury of brachial plexus; Translations: [Injury of brachial plexus, initial encounter] Onset: 03-14-2019 03-14-2019 Episodic Other lower respiratory disease (20 sources) Nodule of lung; Translations: [Solitary pulmonary nodule] Onset: 07-06-2021 07-06-2021 Episodic Other non-traumatic joint disorders (3 sources) Pain in left shoulder; Translations: [Pain in joint, shoulder region] Onset: 12-29-2022 01-18-2023 Episodic Other upper respiratory disease (1 source) Nasal congestion; Translations: [Nasal congestion] Onset: 09-28-2022 Episodic Residual codes; unclassified (1 source) Pain, unspecified; Translations: [Pain] Onset: 01-18-2023 Episodic Results Test Name Value Interpretation Reference Range Facil ity Vital Signs Date Time Vital Sign Value Performing Clinician Faci lity 04-09-2023 17:39-0500 Body temperature 96.8 [degF] Payton Galicia MD Work Phone: [facility] 04-09-2023 17:39-0500 Body weight 106.59 kg Payton Galicia MD Work Phone: [facility] 04-09-2023 17:39-0500 Diastolic blood pressure 78 mm[Hg] Payton Galicia MD Work Phone: [facility] 04-09-2023 17:39-0500 Heart rate 75 /min Payton Galicia MD Work Phone: [facility] 04-09-2023 17:39-0500 Respiratory rate 18 /min Payton Galicia MD Work Phone: [facility] 04-09-2023 17:39-0500 SaO2% (BldA) [Mass fraction] 97 % Payton Galicia MD Work Phone: [facility] 04-09-2023 17:39-0500 Systolic blood pressure 124 mm[Hg] Payton Galicia MD Work Phone: [facility] 03-08-2023 11:02-0400 Body weight 103.42 kg Tamera Perez APRN.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 Work Phone: [facility] 03-08-2023 11:02-0400 Diastolic blood pressure 74 mm[Hg] Tamera Perez APRN.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 Work Phone: [facility] 03-08-2023 11:02-0400 Heart rate 77 /min Tamera Perez FLATTENING PRESS OPERATOR.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 Work Phone: [facility] 03-08-2023 11:02-0400 Respiratory rate 16 /min Tamera Perez FLATTENING PRESS OPERATOR.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 Work Phone: [facility] 03-08-2023 11:02-0400 SaO2% (BldA) [Mass fraction] 99 % Tamera Perez FLATTENING PRESS OPERATOR.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 Work Phone: [facility] 03-08-2023 11:02-0400 Systolic blood pressure 130 mm[Hg] Tamera Perez FLATTENING PRESS OPERATOR.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 Work Phone: [facility] 03-04-2023 12:03-0400 Body temperature 100.8 [degF] Myles Yahir FLATTENING PRESS OPERATOR.CITY COUNCIL MEMBER Work Phone: [facility] 03-04-2023 12:03-0400 Body weight 103.42 kg Myles Yahir FLATTENING PRESS OPERATOR.CITY COUNCIL MEMBER Work Phone: [facility] 03-04-2023 12:03-0400 Diastolic blood pressure 84 mm[Hg] Myles Yahir FLATTENING PRESS OPERATOR.CITY COUNCIL MEMBER Work Phone: [facility] 03-04-2023 12:03-0400 Heart rate 108 /min Myles Yahir FLATTENING PRESS OPERATOR.CITY COUNCIL MEMBER Work Phone: [facility] 03-04-2023 12:03-0400 Respiratory rate 24 /min Myles Yahir FLATTENING PRESS OPERATOR.CITY COUNCIL MEMBER Work Phone: [facility] 03-04-2023 12:03-0400 SaO2% (BldA) [Mass fraction] 96 % Myles Yahir FLATTENING PRESS OPERATOR.CITY COUNCIL MEMBER Work Phone: [facility] 03-04-2023 12:03-0400 Systolic blood pressure 119 mm[Hg] Myles Yahir FLATTENING PRESS OPERATOR.CITY COUNCIL MEMBER Work Phone: [facility] 01-03-2023 14:43-0400 Body temperature 97.81 [degF] Myles Yahir FLATTENING PRESS OPERATOR.CITY COUNCIL MEMBER Work Phone: [facility] 01-03-2023 14:43-0400 Body weight 106.78 kg Myles Sinclair FLATTENING PRESS OPERATOR.CITY COUNCIL MEMBER Work Phone: [facility] 01-03-2023 14:43-0400 Diastolic blood pressure 78 mm[Hg] Myles Sinclair FLATTENING PRESS OPERATOR.CITY COUNCIL MEMBER Work Phone: [facility] 01-03-2023 14:43-0400 Heart rate 85 /min Myles Sinclair FLATTENING PRESS OPERATOR.CITY COUNCIL MEMBER Work Phone: [facility] 01-03-2023 14:43-0400 Respiratory rate 20 /min Myles Sinclair FLATTENING PRESS OPERATOR.CITY COUNCIL MEMBER Work Phone: [facility] 01-03-2023 14:43-0400 SaO2% (BldA) [Mass fraction] 98 % Myles Sinclair FLATTENING PRESS OPERATOR.CITY COUNCIL MEMBER Work Phone: [facility] 01-03-2023 14:43-0400 Systolic blood pressure 143 mm[Hg] Myles Sinclair FLATTENING PRESS OPERATOR.CITY COUNCIL MEMBER Work Phone: [facility] 12-29-2022 08:55-0400 Body temperature 96.1 [degF] Payton Galicia MD Work Phone: [facility] 12-29-2022 08:55-0400 Body weight 105.69 kg Payton Galicia MD Work Phone: [facility] 12-29-2022 08:55-0400 Diastolic blood pressure 82 mm[Hg] Payton Galicia MD Work Phone: [facility] 12-29-2022 08:55-0400 Heart rate 68 /min Payton Galicia MD Work Phone: [facility] 12-29-2022 08:55-0400 Respiratory rate 18 /min Payton Galicia MD Work Phone: [facility] 12-29-2022 08:55-0400 SaO2% (BldA) [Mass fraction] 97 % Payton Galicia MD Work Phone: [facility] 12-29-2022 08:55-0400 Systolic blood pressure 124 mm[Hg] Payton Galicia MD Work Phone: [facility] 09-28-2022 10:28-0400 Body weight 107.96 kg Tamera Perez FLATTENING PRESS OPERATOR.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 Work Phone: [facility] 09-28-2022 10:28-0400 Diastolic blood pressure 70 mm[Hg] Tamera Perez FLATTENING PRESS OPERATOR.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 Work Phone: [facility] 09-28-2022 10:28-0400 Heart rate 76 /min Tamera Perez FLATTENING PRESS OPERATOR.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 Work Phone: [facility] 09-28-2022 10:28-0400 Respiratory rate 16 /min Tamera Perez FLATTENING PRESS OPERATOR.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 Work Phone: [facility] 09-28-2022 10:28-0400 Systolic blood pressure 124 mm[Hg] Tamera Perez FLATTENING PRESS OPERATOR.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 Work Phone: [facility] 08-11-2022 17:49-0400 Body temperature 98.1 [degF] Payton Galicia MD Work Phone: [facility] 08-11-2022 17:49-0400 Body weight 108.86 kg Payton Galicia MD Work Phone: [facility] 08-11-2022 17:49-0400 Diastolic blood pressure 82 mm[Hg] Payton Galicia MD Work Phone: [facility] 08-11-2022 17:49-0400 Heart rate 77 /min Payton Galicia MD Work Phone: [facility] 08-11-2022 17:49-0400 Respiratory rate 18 /min Payton Galicia MD Work Phone: [facility] 08-11-2022 17:49-0400 SaO2% (BldA) [Mass fraction] 96 % Payton Galicia MD Work Phone: [facility] 08-11-2022 17:49-0400 Systolic blood pressure 132 mm[Hg] Payton Galicia MD Work Phone: [facility] 03-03-2022 12:46-0400 Body temperature 99.19 [degF] Cherelle Praisler-Wood FLATTENING PRESS OPERATOR.CITY COUNCIL MEMBER Work Phone: [facility] 03-03-2022 12:46-0400 Body weight 106.05 kg Cherelle Praisler-Wood FLATTENING PRESS OPERATOR.CITY COUNCIL MEMBER Work Phone: [facility] 03-03-2022 12:46-0400 Diastolic blood pressure 80 mm[Hg] Cherelle Praisler-Wood FLATTENING PRESS OPERATOR.CITY COUNCIL MEMBER Work Phone: [facility] 03-03-2022 12:46-0400 Heart rate 89 /min Cherelle Praisler-Wood FLATTENING PRESS OPERATOR.CITY COUNCIL MEMBER Work Phone: [facility] 03-03-2022 12:46-0400 Respiratory rate 16 /min Cherelle Praisler-Wood FLATTENING PRESS OPERATOR.CITY COUNCIL MEMBER Work Phone: [facility] 03-03-2022 12:46-0400 SaO2% (BldA) [Mass fraction] 97 % Cherelle Praisler-Wood FLATTENING PRESS OPERATOR.CITY COUNCIL MEMBER Work Phone: [facility] 03-03-2022 12:46-0400 Systolic blood pressure 142 mm[Hg] Cherelle Praisler-Wood FLATTENING PRESS OPERATOR.CITY COUNCIL MEMBER Work Phone: [facility] 12-23-2021 10:55-0400 Body weight 102.06 kg Domi Older FLATTENING PRESS OPERATOR.CITY COUNCIL MEMBER Work Phone: [facility] 12-23-2021 10:55-0400 Diastolic blood pressure 80 mm[Hg] Domi Older FLATTENING PRESS OPERATOR.CITY COUNCIL MEMBER Work Phone: [facility] 12-23-2021 10:55-0400 Heart rate 83 /min Domi Older FLATTENING PRESS OPERATOR.CITY COUNCIL MEMBER Work Phone: [facility] 12-23-2021 10:55-0400 SaO2% (BldA) [Mass fraction] 97 % Domi Older FLATTENING PRESS OPERATOR.CITY COUNCIL MEMBER Work Phone: [facility] 12-23-2021 10:55-0400 Systolic blood pressure 126 mm[Hg] Domi Kendall FLATTENING PRESS OPERATOR.CITY COUNCIL MEMBER Work Phone: [facility] 12-15-2021 09:36-0400 Diastolic blood pressure 68 mm[Hg] Je Fagan MD Work Phone: [facility] 12-15-2021 09:36-0400 Heart rate 78 /min Je Fagan MD Work Phone: [facility] 12-15-2021 09:36-0400 Respiratory rate 16 /min Je Fagan MD Work Phone: [facility] 12-15-2021 09:36-0400 SaO2% (BldA) [Mass fraction] 94 % Je Fagan MD Work Phone: [facility] 12-15-2021 09:36-0400 Systolic blood pressure 117 mm[Hg] Je Fagan MD Work Phone: [facility] 12-15-2021 08:13-0400 Body temperature 97.9 [degF] Je Fagan MD Work Phone: [facility] 10-24-2021 10:42-0400 Body temperature 97.3 [degF] Tamera Perez FLATTENING PRESS OPERATOR.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 Work Phone: [facility] 10-24-2021 10:42-0400 Body weight 106.14 kg Tamera Perez FLATTENING PRESS OPERATOR.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 Work Phone: [facility] 10-24-2021 10:42-0400 Diastolic blood pressure 78 mm[Hg] Tamera Perez FLATTENING PRESS OPERATOR.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 Work Phone: [facility] 10-24-2021 10:42-0400 Heart rate 71 /min Tamera Perez FLATTENING PRESS OPERATOR.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 Work Phone: [facility] 10-24-2021 10:42-0400 Respiratory rate 16 /min Tamera Perez FLATTENING PRESS OPERATOR.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 Work Phone: [facility] 10-24-2021 10:42-0400 SaO2% (BldA) [Mass fraction] 97 % Tamera Perez FLATTENING PRESS OPERATOR.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 Work Phone: [facility] 10-24-2021 10:42-0400 Systolic blood pressure 122 mm[Hg] Tamera Perez APRN.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 Work Phone: [facility] 09-08-2021 12:54-0400 Body height 168.9 cm Reid Samson MD Work Phone: [facility] 09-08-2021 12:54-0400 Body weight 110.68 kg Reid Samson MD Work Phone: [facility] 09-08-2021 12:54-0400 Diastolic blood pressure 74 mm[Hg] Reid Samson MD Work Phone: [facility] 09-08-2021 12:54-0400 Heart rate 75 /min Reid Samson MD Work Phone: [facility] 09-08-2021 12:54-0400 SaO2% (BldA) [Mass fraction] 97 % Reid Samson MD Work Phone: [facility] 09-08-2021 12:54-0400 Systolic blood pressure 124 mm[Hg] Reid Samson MD Work Phone: [facility] Encounters Encounter Date Encounter Type Care Provider Facility Start: 04-09-2023 End: 04-10-2023 ambulatory PAYTON GALICIA Facility:[facility] Start: 04-09-2023 End: 04-09-2023 Office outpatient visit 25 minutes Payton Galicia MD Work Phone: [facility] [place] Procedures Date Procedure Procedure Detail Performing Clinician Start: 03-04-2023 Radiologic exam ches t 2 views Myles Sinclair FLATTENING PRESS OPERATOR.CITY COUNCIL MEMBER Work Phone: Start: 01-18-2023 Arthrocentesis aspir &/inj major jt/bursa w/o us Maggy Stanton PA-C Work Phone: Start: 01-08-2022 Arthrocentesis aspir &/inj major jt/bursa w/o us Carlos Lynn MD Work Phone: Start: 12-23-2021 Hemoglobin A1c/Hemoglobin.total in Blood Domi Older FLATTENING PRESS OPERATOR.CITY COUNCIL MEMBER Work Phone: Start: 12-23-2021 Adult depression scr eening assessment Domi Older FLATTENING PRESS OPERATOR.CITY COUNCIL MEMBER Work Phone: Start: 12-15-2021 Colonoscopy flx dx w /collj spec when pfrmd Bhumika Villegas FLATTENING PRESS OPERATOR.CITY COUNCIL MEMBER Work Phone: Start: 12-15-2021 Colonoscopy Je nelson MD Work Phone: Start: 06-05-2021 Adult depression scr eening assessment Payton Galicia MD Work Phone: Plan of Treatment Date Care Activity Detail Author Start: 03-15-2028 Prostate Cancer Scre ening Discussion Prostate Cancer Screening Discussion [facility] Start: 03-15-2028 Prostate specific an tigen measurement Prostate Cancer Screening Discussion [facility] Start: 12-15-2026 Colonoscopy COLONOSCOPY [facility] Start: 12-15-2026 COLORECTAL CANCER SCREENING COLORECTAL CANCER SCREENING [facility] Start: 12-15-2026 Screening for malign ant neoplasm of colon [facility] Start: 12-11-2026 PROSTATE CANCER SCRE ENING DISCUSSION PROSTATE CANCER SCREENING DISCUSSION [facility] Start: 04-01-2025 PROSTATE CANCER SCRE ENING DISCUSSION PROSTATE CANCER SCREENING DISCUSSION [facility] Start: 04-09-2024 Annual PCP Team Airplane Refueler zainab Disease Visit Annual PCP Team Chronic Disease Visit [facility] Start: 04-09-2024 BP Controlled (<130/80) BP Controlle d (<130/80) [facility] Start: 04-09-2024 Covid-19 Vaccine ( season) Covid-19 Vaccine ( season) [facility] Immunizations Immunization Date Immunization Notes Care Provider Fa cilikelly 06-05-2021 pneumococcal polysaccharide vaccine, 23 valent Payton Galicia MD Work Phone: [facility] Work Phone: 04-30-2021 COVID-19 original vaccine, full dose, monovalent (MODERNA) Tamera Perez FLATTENING PRESS OPERATOR.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 Work Phone: [facility] Work Phone: 03-21-2021 influenza, high dose seasonal, preservative-free Payton Galicia MD Work Phone: [facility] Work Phone: 03-21-2021 influenza virus vaccine, unspecified formulation Myles King VERONIKA Work Phone: [facility] 08-13-2020 COVID-19 vaccine, fu ll dose (MODERNA) Payton Galicia MD Work Phone: [facility] 07-20-2020 COVID-19 vaccine, fu ll dose (MODERNA) Payton Galicia MD Work Phone: [facility] 02-28-2020 influenza, high dose seasonal, preservative-free Payton Galicia MD Work Phone: [facility] Work Phone: 02-28-2020 influenza, high-dose , quadrivalent vaccine (FLUZONE HIGH DOSE QUADRIVALENT) Payton Galicia MD Work Phone: [facility] Work Phone: 02-28-2020 pneumococcal conjuga te vaccine, 13 valent Payton Galicia MD Work Phone: [facility] Work Phone: 02-03-2018 influenza, injectabl e, quadrivalent, contains preservative Payton Galicia MD Work Phone: [facility] [facility] 05-20-2017 influenza, injectabl e, quadrivalent, contains preservative Payton Galicia MD Work Phone: [facility] 03-11-2016 influenza, seasonal, injectable Payton Galicia MD Work Phone: [facility] 03-13-2015 influenza, injectabl e, quadrivalent, preservative free Payton Galicia MD Work Phone: [facility] 03-13-2015 influenza, seasonal, injectable Cherelle Agee MA [facility] 03-13-2015 influenza, seasonal, injectable, preservative free Payton Galicia MD Work Phone: [facility] Work Phone: 02-26-2015 influenza, injectabl e, quadrivalent, contains preservative Payton Galicia MD Work Phone: [facility] 02-26-2015 pneumococcal polysaccharide vaccine, 23 valent Payton Galicia MD Work Phone: [facility] 10-30-2013 tetanus and diphther ia toxoids, adsorbed, preservative free, for adult use (2 Lf of tetanus toxoid and 2 Lf of diphtheria toxoid) Payton Galicia MD Work Phone: [facility] NEGATED: Highlighted row has not occurred!09-28-2022 tetanus toxoid, reduced diphtheria toxoid, and acellular pertussis vaccine, adsorbed Tamera Perez FLATTENING PRESS OPERATOR.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 Work Phone: [facility] Work Phone: NEGATED: Highlighted row has not occurred!09-28-2022 zoster vaccine recombinant Tamera Perez FLATTENING PRESS OPERATOR.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 Work Phone: [facility] Work Phone: Payers Date Payer Category Payer Medicare MEDICARE MEDICAR E A AND B [id number] 2019-Present [phone] [place] [address] Medicare [id number] 2019 Medicare MEDICARE MEDICAR E A AND B [id number] 2019-Present [phone] [place] [address] Medicare [id number] 2019 Medicare [id number] 2019 Medicare [id number] 2019 Unknown JAVIER DENNY DICARE SUPPLEMENT [id number] 2019-Present [phone] [address] [place] [address] Indemnity [id number] 2019 Unknown JAVIER DENNY DICARE SUPPLEMENT [id number] 2019-Present [phone] [id number] [place] [address] Indemnity [id number] Social History Date Type Detail Facility Start: 05-20-2017 End: 03-03-2022 Tobacco smoking status NHIS Never smoked tobacco [facility] Start: 07-15-2021 End: 04-09-2023 Alcohol intake Current non-drinker of alcohol (finding) [facility] Start: 06-03-2021 End: 08-06-2022 History SDOH Alcohol Frequency 1 [facility] Start: 06-03-2021 End: 08-06-2022 History SDOH Social Connections Phone 5 [facility] Start: 06-03-2021 End: 08-06-2022 History SDOH Social Connections Nondenominational 98 [facility] Start: 06-03-2021 End: 08-06-2022 History SDOH Social Connections Membership 2 [facility] Start: 06-03-2021 End: 08-06-2022 History SDOH Social Connections Living 3 [facility] Start: 06-03-2021 End: 08-06-2022 History SDOH Financial 4 [facility] Start: 09-20-2019 Education 12 [facility] Start: 1955 Sex Assigned At Male [facility] Start: 10-14-2021 End: 10-24-2021 Exposure to SARS-CoV-2 (event) Yes [facility] Work Phone: Start: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 by Reid Samson MD on September 08, 2021, 1:10 PM The above note was partially created using a dictation recognition software. A reasonable attempt has been made to correct any errors. documented in this encounter [facility] 08-29-2021 Miscellaneous Notes Completed, mychart sent. Copy made for our records, original placed in med records. Rec'd. And to pcp to complete. Patient calls and states the he is going to be dropping off papers for provider to fill out in regards to [facility] and [employer]. 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 Can let patient know via My Chart. 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 Leblanc documented as of this encounter (statuses as of 05/10/2023) [facility] Diagnosis Primary hypertension- Primary Unspecified essential hypertension Thoracic aortic aneurysm without rupture (HCC) Thoracic aneurysm without mention of rupture Aortic dilatation (HCC) Aortic ectasia, unspecified site [facility] Diagnosis Suspected COVID-19 virus infection- Primary Fatigue, unspecified type Exposure to COVID-19 virus [facility] Diagnosis Personal history of colonic polyps [facility] Diagnosis Diabetes mellitus without complication (HCC)- Primary Type II or unspecified type diabetes mellitus without mention of complication, not stated as uncontrolled Chronic pain of right knee Pure hypercholesterolemia HTN (hypertension), benign Essential hypertension, benign Idiopathic gout, unspecified chronicity, unspecified site Obesity (BMI 35.0-39.9 without comorbidity) Obesity, unspecified [facility] Diagnosis History of colonic polyps- Primary Personal history of colonic polyps Diverticulosis Diverticulosis of colon (without mention of hemorrhage) [facility] Diagnosis Chronic midline low back pain without sciatica- Primary Chronic right-sided low back pain without sciatica documented in this encounter [facility] note* Diagnosis Chronic pain of right knee [facility] Diagnosis Bacterial sinusitis- Primary Unspecified sinusitis (chronic) Suspected COVID-19 virus infection documented in this encounter [facility] note* Diagnosis Idiopathic gout, unspecified chronicity, unspecified site [facility] Diagnosis Family history of prostate cancer in father- Primary Encounter for screening for malignant neoplasm of prostate Special screening for malignant neoplasm of prostate [facility] Diagnosis Suspected COVID-19 virus infection Exposure to COVID-19 virus [facility] Diagnosis Type 2 diabetes mellitus with microalbuminuria, without long-term current use of insulin (HCC)- Primary Pure hypercholesterolemia HTN (hypertension), benign Essential hypertension, benign Idiopathic gout, unspecified chronicity, unspecified site Prostate cancer screening Special screening for malignant neoplasm of prostate Aortic dilatation (HCC) Aortic ectasia, unspecified site documented in this encounter [facility] note* Diagnosis Type 2 diabetes mellitus with microalbuminuria, without long-term current use of insulin (HCC)- Primary Screening for diabetic retinopathy Screening for other eye conditions HTN (hypertension), benign Essential hypertension, benign Pure hypercholesterolemia Diabetes mellitus without complication (HCC) Type II or unspecified type diabetes mellitus without mention of complication, not stated as uncontrolled Nasal congestion Other diseases of nasal cavity and sinuses Need for kojtrlqdbx-fwowbyy-nvnjryfmd (Tdap) vaccine Need for prophylactic vaccination with combined zhflbjgtsy-damozrh-kthcgtlbe (DTP) vaccine Need for shingles vaccine Need for prophylactic vaccination and inoculation against other viral diseases Obesity (BMI 35.0-39.9 without comorbidity) Obesity, unspecified 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, unspecified retinopathy severity (HCC) [facility] Diagnosis Viral URI- Primary Acute upper respiratory infections of unspecified site Pneumonia exposure Contact with or exposure to other viral diseases Bacterial conjunctivitis Other conjunctivitis documented in this encounter [facility] note* Diagnosis Acute pain of left shoulder- Primary Tendinitis of left shoulder Disorders of bursae and tendons in shoulder region, unspecified documented in this encounter [facility] note* Diagnosis Acute pain of left shoulder- Primary Scalp psoriasis Other psoriasis Bilateral posterior neck pain Cervicalgia documented in this encounter [facility] note* Diagnosis Community acquired pneumonia of left lung, unspecified part of lung- Primary Acute cough Suspected COVID-19 virus infection Close exposure to COVID-19 virus [facility] Diagnosis COVID-19- Primary Pneumonia due to COVID-19 virus documented in this encounter [facility] note* Diagnosis Pain Generalized pain documented in this encounter [facility] note* Diagnosis Elevated PSA- Primary Elevated prostate specific antigen (PSA) Type 2 diabetes mellitus with microalbuminuria, without long-term current use of insulin (HCC) HTN (hypertension), benign Essential hypertension, benign Nocturia more than twice per night Mixed hyperlipidemia documented in this encounter [facility] for referral (narrative)* Diagnostic Procedure Only (Routine) - Closed Specialty Diagnoses / Procedures Referred By Arturo mendoza Referred To Contact XR IMAGING Diagnoses Chronic pain of right knee Procedures XR KNEE GENERAL 4V AP BOTH/PA BOTH/LAT/MERC RIGHT RADIOLOGIC EXAM KNEE COMPLETE 4/MORE VIEWS Domi Argueta APRN.CNP [address] [place] [address] Xr Imaging Referral ID Status Reason Start Date Expiration Date V isits Requested Visits Authorized [id number] Closed Auto-Generate d Referral 12/23/2021 01/22/2023 1 1 * Consult, Test, Treat (Routine) - Authorized Specialty Diagnoses / Procedures Referred By Arturo mendoza Referred To Contact Orthopedics Diagnoses Chronic pain of right knee Procedures CONSULT TO ORTHOPAEDICS OFFICE/OUTPATIENT NEW HIGH MDM 60-74 MINUTES Domi Argueta APRN.CNP [address] [place] [address] Referral ID Status Reason Start Date Expiration Date Visits Requested Visits Authorized [id number] Authorized PCP Requested Referral 12/23/2021 12/23/2022 1 1 [facility] for referral (narrative)* Diagnostic Procedure Only (Routine) - Closed Specialty Diagnoses / Procedures Referred By Contac t Referred To Contact XR IMAGING Diagnoses Acute pain of left shoulder Procedures XR SHOULDER GENERAL 3V OR MORE AP/TRUE AP/OTHER LEFT RADEX SHOULDER COMPLETE MINIMUM 2 VIEWS Payton Galicia MD [address] [place] [address] [place] [address] Referral ID Status Reason Start Date Expiration Date V isits Requested Visits Authorized [id number] Closed Auto-Generate d Referral 12/29/2022 01/28/2024 1 1 [facility] for visit Narrative* Outpatient Procedure (Routine) - Closed Specialty Diagnoses / Procedures Referred By Contac t Referred To Contact [facility] Diagnoses Screening for colorectal cancer Procedures COLONOSCOPY SCREENING COLONOSCOPY FLX DX W/COLLJ SPEC WHEN Bhumika Huber APRN.CNP [address] [place] [address] [facility] [address] [place] [address] Referral ID Status Reason Start Date Expiration Date V isits Requested Visits Authorized [id number] Closed Auto-Generate d Referral 07/15/2021 07/15/2022 1 1 [facility] for visit Narrative* Diagnostic Procedure Only (Routine) - Authorized Specialty Diagnoses / Procedures Referred By Contac t Referred To Contact XR IMAGING Diagnoses Pain Procedures XR SHOULDER GENERAL 3V OR MORE AP/TRUE AP/OTHER LEFT RADEX SHOULDER COMPLETE MINIMUM 2 VIEWS Maggy Stanton PA-C [address] [place] [address] [place] [address] Referral ID Status Reason Start Date Expiration Date Visits Requested Visits Authorized [id number] Authorized Auto-Generat ed Referral 12/28/2022 01/27/2024 1 1 [facility] Summary Purpose Family History No Family History Records FoundNo Family History Records Found Advance Directives No Advanced Directives Records FoundDocuments on File Type Date Recorded 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 Advance Directive(s) 12/15/2021 7:48 AM Advance Directive(s) 11/27/2021 2:26 PM Advance Directive(s) 11/05/2021 2:26 PM Documents on File Type Date Recorded 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 Advance Directive(s) 12/15/2021 7:48 AM Advance Directive(s) 11/27/2021 2:26 PM Advance Directive(s) 11/05/2021 2:26 PM Medications Administered Section Inactive Administered Medications - up to 3 most recent administrations Medication Order MAR Action Action Date Dose Rate Site diphenhydrAMINE 12.5-50 mg injection (BENADRYL) 12.5-50 mg, INTRAVENOUS, DIRECTED, Starting on Wed12/15/21 at 0900, Until Wed12/15/21 at 1259, DOSING DIRECTED BY PHYSICIAN FOR PROCEDURAL SEDATION ONLY, Intraprocedure Given 12/15/2021 8:46 AM EDT 50 mg fentaNYL 50 mcg/mL 25-100 mcg injection (SUBLIMAZE) 25-100 mcg, INTRAVENOUS, DIRECTED, Starting on Wed12/15/21 at 0900, Until Wed12/15/21 at 1259, DOSING DIRECTED BY PHYSICIAN FOR PROCEDURAL SEDATION ONLY, Intraprocedure Given 12/15/2021 8:44 AM EDT 50 mcg lactated ringers iv infusion 30 mL/hr, INTRAVENOUS, CONTINUOUS, Starting on Wed12/15/21 at 0800, Until Wed12/15/21 at 0907, Preprocedure New Bag/Syringe/Bottle 12/15/2021 8:10 AM EDT 30 mL/hr 30 mL/hr midazolam (PF) 1-5 mg injection (VERSED) 1-5 mg, INTRAVENOUS, DIRECTED, Starting on Wed12/15/21 at 0900, Until Wed12/15/21 at 1259, DOSING DIRECTED BY PHYSICIAN FOR PROCEDURAL SEDATION ONLY, Intraprocedure Given 12/15/2021 8:47 AM EDT 2 mg Inactive Administered Medications - up to 3 most recent administrations Medication Order MAR Action Action Date Dose Rate Site hyaluronate sodium, stabilized syrg 3 mL (DUROLANE) 3 mL, Injection - FOR ORTHO USE ONLY, ONE TIME INJECTION, 1 dose, Starting on Phuong 01/08/22 at 1043, Until Phuong 01/08/22 at 1043 Given 01/08/2022 10:43 AM EDT 3 mL Knee, Right lidocaine (PF) 10 mg/mL (1 %) 4 mL injection (XYLOCAINE) 4 mL, Injection - FOR ORTHO USE ONLY, ONE TIME INJECTION, 1 dose, Starting on Phuong 01/08/22 at 1043, Until Phuong 01/08/22 at 1043 Given 01/08/2022 10:43 AM EDT 4 mL Knee, Right Inactive Administered Medications - up to 3 most recent administrations Medication Order MAR Action Action Date Dose Rate Site betamethasone acetate-betamethasone sodium phosphate 6 mg injection (CELESTONE) 6 mg, Injection - FOR ORTHO USE ONLY, ONE TIME INJECTION, 1 dose, Starting on Wed01/18/23 at 1005, Until Wed01/18/23 at 1005 Given 01/18/2023 10:05 AM EDT 6 mg Shoulder, Left lidocaine (PF) 10 mg/mL (1 %) 4 mL injection (XYLOCAINE) 4 mL, Injection - FOR ORTHO USE ONLY, ONE TIME INJECTION, 1 dose, Starting on Wed01/18/23 at 1005, Until Wed01/18/23 at 1005 Given 01/18/2023 10:05 AM EDT 4 mL Shoulder, Left Reason for Referral Specialty Diagnoses / Procedures Referred By Arturo mendoza Referred To Contact Pain Management Diagnoses Chronic right-sided low back pain without sciatica Procedures CONSULT TO PAIN MGT OFFICE/OUTPATIENT [facility] 60-74 MINUTES Tamera Perez APRN.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 [address] [place] [address] Referral ID Status Reason Start Date Expiration Date Visits Requested Visits Authorized [id number] Authorized PCP Requested Referral 01/16/2022 01/16/2023 1 1 Specialty Diagnoses / Procedures Referred By Arturo mendoza Referred To Contact Podiatry Diagnoses Type 2 diabetes mellitus with microalbuminuria, without long-term current use of insulin (HCC) Procedures CONSULT TO PODIATRY OFFICE/OUTPATIENT NEW HIGH MDM 60-74 MINUTES Tamera Perez, FLATTENING PRESS OPERATOR.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 [address] [place] [address] Referral ID Status Reason Start Date Expiration Date Visits Requested Visits Authorized [id number] Authorized PCP Requested Referral 09/28/2022 09/28/2023 1 1 Health Concerns Infection Onset Date Last Indicated Resolved Time COVID-19 Rule-Out 03/03/2022 03/03/2022 Infection Onset Date Last Indicated Resolved Time COVID-19 Confirmed 03/03/2022 03/03/2022 Infection Onset Date Last Indicated Resolved Time COVID-19 Confirmed 03/04/2023 03/04/2023 Additional Source Comments (unrecognized sect ion and content) No Status Records FoundNo Status Records Found INFORMATION SOURCE (unrecogn ized section and content) DATE CREATED AUTHOR AUTHOR'S ORGANIZ ATION 05/10/2023 [facility] Source Comments (unrecognize d section and content) In the event this informatio n is protected by the Federal Confidentiality of Alcohol and Drug Abuse Patient Records regulations: The Federal rules restrict any use of the information to criminally investigate or prosecute any alcohol or drug abuse patient.[facility] the event this information is protected by the Federal Confidentiality of Alcohol and Drug Abuse Patient Records regulations: The Federal rules restrict any use of the information to criminally investigate or prosecute any alcohol or drug abuse patient.[facility] the event this information is protected by the Federal Confidentiality of Alcohol and Drug Abuse Patient Records regulations: The Federal rules restrict any use of the information to criminally investigate or prosecute any alcohol or drug abuse patient.[facility] the event this information is protected by the Federal Confidentiality of Alcohol and Drug Abuse Patient Records regulations: The Federal rules restrict any use of the information to criminally investigate or prosecute any alcohol or drug abuse patient.[facility] CenterIn the event this information is protected by the Federal Confidentiality of Alcohol and Drug Abuse Patient Records regulations: The Federal rules restrict any use of the information to criminally investigate or prosecute any alcohol or drug abuse patient.[facility] CenterIn the event this information is protected by the Federal Confidentiality of Alcohol and Drug Abuse Patient Records regulations: The Federal rules restrict any use of the information to criminally investigate or prosecute any alcohol or drug abuse patient.[facility] CenterIn the event this information is protected by the Federal Confidentiality of Alcohol and Drug Abuse Patient Records regulations: The Federal rules restrict any use of the information to criminally investigate or prosecute any alcohol or drug abuse patient.[facility] CenterIn the event this information is protected by the Federal Confidentiality of Alcohol and Drug Abuse Patient Records regulations: The Federal rules restrict any use of the information to criminally investigate or prosecute any alcohol or drug abuse patient.[facility] CenterIn the event this information is protected by the Federal Confidentiality of Alcohol and Drug Abuse Patient Records regulations: The Federal rules restrict any use of the information to criminally investigate or prosecute any alcohol or drug abuse patient.[facility] CenterIn the event this information is protected by the Federal Confidentiality of Alcohol and Drug Abuse Patient Records regulations: The Federal rules restrict any use of the information to criminally investigate or prosecute any alcohol or drug abuse patient.[facility] CenterIn the event this information is protected by the Federal Confidentiality of Alcohol and Drug Abuse Patient Records regulations: The Federal rules restrict any use of the information to criminally investigate or prosecute any alcohol or drug abuse patient.[facility] CenterIn the event this information is protected by the Federal Confidentiality of Alcohol and Drug Abuse Patient Records regulations: The Federal rules restrict any use of the information to criminally investigate or prosecute any alcohol or drug abuse patient.[facility] CenterIn the event this information is protected by the Federal Confidentiality of Alcohol and Drug Abuse Patient Records regulations: The Federal rules restrict any use of the information to criminally investigate or prosecute any alcohol or drug abuse patient.[facility] CenterIn the event this information is protected by the Federal Confidentiality of Alcohol and Drug Abuse Patient Records regulations: The Federal rules restrict any use of the information to criminally investigate or prosecute any alcohol or drug abuse patient.[facility] CenterIn the event this information is protected by the Federal Confidentiality of Alcohol and Drug Abuse Patient Records regulations: The Federal rules restrict any use of the information to criminally investigate or prosecute any alcohol or drug abuse patient.[facility] CenterIn the event this information is protected by the Federal Confidentiality of Alcohol and Drug Abuse Patient Records regulations: The Federal rules restrict any use of the information to criminally investigate or prosecute any alcohol or drug abuse patient.[facility] CenterIn the event this information is protected by the Federal Confidentiality of Alcohol and Drug Abuse Patient Records regulations: The Federal rules restrict any use of the information to criminally investigate or prosecute any alcohol or drug abuse patient.[facility] CenterIn the event this information is protected by the Federal Confidentiality of Alcohol and Drug Abuse Patient Records regulations: The Federal rules restrict any use of the information to criminally investigate or prosecute any alcohol or drug abuse patient.[facility] CenterIn the event this information is protected by the Federal Confidentiality of Alcohol and Drug Abuse Patient Records regulations: The Federal rules restrict any use of the information to criminally investigate or prosecute any alcohol or drug abuse patient.[facility] CenterIn the event this information is protected by the Federal Confidentiality of Alcohol and Drug Abuse Patient Records regulations: The Federal rules restrict any use of the information to criminally investigate or prosecute any alcohol or drug abuse patient.[facility] CenterIn the event this information is protected by the Federal Confidentiality of Alcohol and Drug Abuse Patient Records regulations: The Federal rules restrict any use of the information to criminally investigate or prosecute any alcohol or drug abuse patient.[facility] CenterIn the event this information is protected by the Federal Confidentiality of Alcohol and Drug Abuse Patient Records regulations: The Federal rules restrict any use of the information to criminally investigate or prosecute any alcohol or drug abuse patient.[facility] CenterIn the event this information is protected by the Federal Confidentiality of Alcohol and Drug Abuse Patient Records regulations: The Federal rules restrict any use of the information to criminally investigate or prosecute any alcohol or drug abuse patient.[facility] CenterIn the event this information is protected by the Federal Confidentiality of Alcohol and Drug Abuse Patient Records regulations: The Federal rules restrict any use of the information to criminally investigate or prosecute any alcohol or drug abuse patient.[facility] CenterIn the event this information is protected by the Federal Confidentiality of Alcohol and Drug Abuse Patient Records regulations: The Federal rules restrict any use of the information to criminally investigate or prosecute any alcohol or drug abuse patient.[facility] CenterIn the event this information is protected by the Federal Confidentiality of Alcohol and Drug Abuse Patient Records regulations: The Federal rules restrict any use of the information to criminally investigate or prosecute any alcohol or drug abuse patient.[facility] CenterIn the event this information is protected by the Federal Confidentiality of Alcohol and Drug Abuse Patient Records regulations: The Federal rules restrict any use of the information to criminally investigate or prosecute any alcohol or drug abuse patient.[facility] CenterIn the event this information is protected by the Federal Confidentiality of Alcohol and Drug Abuse Patient Records regulations: The Federal rules restrict any use of the information to criminally investigate or prosecute any alcohol or drug abuse patient.[facility] CenterIn the event this information is protected by the Federal Confidentiality of Alcohol and Drug Abuse Patient Records regulations: The Federal rules restrict any use of the information to criminally investigate or prosecute any alcohol or drug abuse patient.[facility] CenterIn the event this information is protected by the Federal Confidentiality of Alcohol and Drug Abuse Patient Records regulations: The Federal rules restrict any use of the information to criminally investigate or prosecute any alcohol or drug abuse patient.[facility] CenterIn the event this information is protected by the Federal Confidentiality of Alcohol and Drug Abuse Patient Records regulations: The Federal rules restrict any use of the information to criminally investigate or prosecute any alcohol or drug abuse patient.[facility] CenterIn the event this information is protected by the Federal Confidentiality of Alcohol and Drug Abuse Patient Records regulations: The Federal rules restrict any use of the information to criminally investigate or prosecute any alcohol or drug abuse patient.[facility] CenterIn the event this information is protected by the Federal Confidentiality of Alcohol and Drug Abuse Patient Records regulations: The Federal rules restrict any use of the information to criminally investigate or prosecute any alcohol or drug abuse patient.[facility] CenterIn the event this information is protected by the Federal Confidentiality of Alcohol and Drug Abuse Patient Records regulations: The Federal rules restrict any use of the information to criminally investigate or prosecute any alcohol or drug abuse patient.[facility] CenterIn the event this information is protected by the Federal Confidentiality of Alcohol and Drug Abuse Patient Records regulations: The Federal rules restrict any use of the information to criminally investigate or prosecute any alcohol or drug abuse patient.[facility] CenterIn the event this information is protected by the Federal Confidentiality of Alcohol and Drug Abuse Patient Records regulations: The Federal rules restrict any use of the information to criminally investigate or prosecute any alcohol or drug abuse patient.[facility] CenterIn the event this information is protected by the Federal Confidentiality of Alcohol and Drug Abuse Patient Records regulations: The Federal rules restrict any use of the information to criminally investigate or prosecute any alcohol or drug abuse patient.[facility] CenterIn the event this information is protected by the Federal Confidentiality of Alcohol and Drug Abuse Patient Records regulations: The Federal rules restrict any use of the information to criminally investigate or prosecute any alcohol or drug abuse patient.[facility] CenterIn the event this information is protected by the Federal Confidentiality of Alcohol and Drug Abuse Patient Records regulations: The Federal rules restrict any use of the information to criminally investigate or prosecute any alcohol or drug abuse patient.[facility] CenterIn the event this information is protected by the Federal Confidentiality of Alcohol and Drug Abuse Patient Records regulations: The Federal rules restrict any use of the information to criminally investigate or prosecute any alcohol or drug abuse patient.[facility] CenterIn the event this information is protected by the Federal Confidentiality of Alcohol and Drug Abuse Patient Records regulations: The Federal rules restrict any use of the information to criminally investigate or prosecute any alcohol or drug abuse patient.[facility] Reason for Visit (unrecogniz ed section and content) Reason Comments New Patient Thoracic aortic aneurysm without rupture Specialty Diagnoses / Procedures Referred By Contac t Referred To Contact Cardiology Diagnoses Thoracic aortic aneurysm without rupture (HCC) Procedures CONSULT TO CARDIOLOGY OFFICE/OUTPATIENT NEW HIGH MDM 60-74 MINUTES Tamera Perez, FLATTENING PRESS 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.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 [address] [place] [address] Referral ID Status Reason Start Date Expiration Date V isits Requested Visits Authorized [id number] Closed PCP Requested Referral 06/24/2021 06/24/2022 1 1 Reason Comments Patient Question Reason Onset Date Comments Refill Request 10/21/2021 Reason Comments Fatigue Reason Comments Results Reason Comments F/U 6 months Reason Comments Colon Polyps Diverticulitis Reason Comments Procedure colonoscopy Reason Comments Back Pain Orders Reason Comments New Pain Specialty Diagnoses / Procedures Referred By Contac t Referred To Contact Orthopedics Diagnoses Chronic pain of right knee Procedures CONSULT TO ORTHOPAEDICS OFFICE/OUTPATIENT NEW HIGH MDM 60-74 MINUTES Domi Argueta, FLATTENING PRESS OPERATOR.CITY COUNCIL MEMBER [address] [place] [address] Referral ID Status Reason Start Date Expiration Date V isits Requested Visits Authorized [id number] Closed PCP Requested Referral 12/23/2021 12/23/2022 1 1 Reason Comments Ear Pain Bilateral ear pain, St, bodyaches and wheezing x 1.5 weeks Reason Comments not needed scheduled virtual visit Reason Comments Medication Problem Reason Onset Date Comments Refill Request 04/13/2022 Reason Comments Refill Request Reason Comments Orders Reason Onset Date Comments Refill Request 07/23/2022 Reason Comments pt assistance approval from [facility] Reason Onset Date Comments Population Health Navigation Outreach 08/17/2022 [facility] Reason Onset Date Comments Refill Request 08/17/2022 Reason Comments Needing after visit summary Reason Comments F/U 6 months Reason Comments Head Congestion ST, ear pain, cough, chest congestion x5 days Reason Comments New Referred by Dr Guerita echeverria, xrays taken 12/29/[address] Guerita echeverria, xrays taken 12/29/2022 Reason Comments Rash scalp X 1 month Established Patient Rash on left side of head x 1 month Reason Comments Chest Congestion Cough, fever, fatigu e, chest pain/back pain with cough x 4 days Reason Comments Hospital F/U Reason Comments F/U 6 months Labs prior Care Teams (unrecognized sec tion and content) Floral Decorator Relationship Specialty Start Date End Date Payton Galicia MD [address] [place] [address] PCP - General Internal Medicine 04/26/13 Ezra Cannon, [facility] [address] [place] [address] Pharmacist Pharmacy 07/11/21 Floral Decorator Relationship Specialty Start Date End Date Payton Galicia MD [address] [place] [address] PCP - General Internal Medicine 04/26/13 Ezra Cannon, [facility] [address] [place] [address] Pharmacist Pharmacy 07/11/21 Floral Decorator Relationship Specialty Start Date End Date Payton Galicia MD [address] [place] [address] PCP - General Internal Medicine 04/26/13 Ezra Cannon, [facility] [address] [place] [address] Pharmacist Pharmacy 07/11/21 Floral Decorator Relationship Specialty Start Date End Date Payton Galicia MD [address] [place] [address] PCP - General Internal Medicine 04/26/13 Ezra Cannon, [facility] [address] [place] [address] Pharmacist Pharmacy 07/11/21 Floral Decorator Relationship Specialty Start Date End Date Payton Galicia MD [address] [place] [address] PCP - General Internal Medicine 04/26/13 Ezra Cannon, [facility] [address] [place] [address] Pharmacist Pharmacy 07/11/21 Floral Decorator Relationship Specialty Start Date End Date Payton Galicia MD [address] [place] [address] PCP - General Internal Medicine 04/26/13 Ezra Cannon, [facility] [address] [place] [address] Pharmacist Pharmacy 07/11/21 Floral Decorator Relationship Specialty Start Date End Date Payton Galicia MD [address] [place] [address] PCP - General Internal Medicine 04/26/13 Ezra Cannon, [facility] [address] [place] [address] Pharmacist Pharmacy 07/11/21 Floral Decorator Relationship Specialty Start Date End Date Payton Galicia MD [address] [place] [address] PCP - General Internal Medicine 04/26/13 Ezra Cannon, [facility] [address] [place] [address] Pharmacist Pharmacy 07/11/21 Floral Decorator Relationship Specialty Start Date End Date Payton Galicia MD [address] [place] [address] PCP - General Internal Medicine 04/26/13 Ezra Cannon, [facility] [address] [place] [address] Pharmacist Pharmacy 07/11/21 Floral Decorator Relationship Specialty Start Date End Date Payton Galicia MD [address] [place] [address] PCP - General Internal Medicine 04/26/13 Ezra Cannon, [facility] [address] [place] [address] Pharmacist Pharmacy 07/11/21 Floral Decorator Relationship Specialty Start Date End Date Payton Galicia MD [address] [place] [address] PCP - General Internal Medicine 04/26/13 Ezra Cannon, [facility] [address] [place] [address] Pharmacist Pharmacy 07/11/21 Floral Decorator Relationship Specialty Start Date End Date Payton Galicia MD [address] [place] [address] PCP - General Internal Medicine 04/26/13 Ezra Cannon, [facility] [address] [place] [address] Pharmacist Pharmacy 07/11/21 Floral Decorator Relationship Specialty Start Date End Date Payton Galicia MD [address] [place] [address] PCP - General Internal Medicine 04/26/13 Ezra Cannon, [facility] [facility] [place] [address] [place] [address] Pharmacist Pharmacy 07/11/21 Floral Decorator Relationship Specialty Start Date End Date Payton Galicia MD [address] [place] [address] PCP - General Internal Medicine 04/26/13 Ezra Cannon, Formerly [facility] [place] [address] [place] [address] Pharmacist Pharmacy 07/11/21 Floral Decorator Relationship Specialty Start Date End Date Payton Galicia MD [address] [place] [address] PCP - General Internal Medicine 04/26/13 Ezra Cannon, Formerly [facility] [place] [address] [place] [address] Pharmacist Pharmacy 07/11/21 Floral Decorator Relationship Specialty Start Date End Date Payton Galicia MD [address] [place] [address] PCP - General Internal Medicine 04/26/13 Ezra Cannon, Formerly [facility] [place] [address] [place] [address] Pharmacist Pharmacy 07/11/21 Floral Decorator Relationship Specialty Start Date End Date Payton Galicia MD [address] [place] [address] PCP - General Internal Medicine 04/26/13 Ezra Cannon, Formerly [facility] [place] [address] [place] [address] Pharmacist Pharmacy 07/11/21 Floral Decorator Relationship Specialty Start Date End Date Payton Galicia MD [address] [place] [address] PCP - General Internal Medicine 04/26/13 Ezra Cannon, Formerly [facility] [place] [address] [place] [address] Pharmacist Pharmacy 07/11/21 Floral Decorator Relationship Specialty Start Date End Date Payton Galicia MD [address] [place] [address] PCP - General Internal Medicine 04/26/13 Stevemelissa Ezra, Formerly [facility] [place] [address] [place] [address] Pharmacist Pharmacy 07/11/21 Floral Decorator Relationship Specialty Start Date End Date Payton Galicia MD [address] [place] [address] PCP - General Internal Medicine 04/26/13 Ezra Cannon, Formerly [facility] [place] [address] [facility] [place] [address] Pharmacist Pharmacy 07/11/21 Floral Decorator Relationship Specialty Start Date End Date Payton Galicia MD [address] [place] [address] PCP - General Internal Medicine 04/26/13 Ezra Cannon, Formerly [facility] [address] [place] [address] Pharmacist Pharmacy 07/11/21 Floral Decorator Relationship Specialty Start Date End Date Payton Galicia MD [address] [place] [address] PCP - General Internal Medicine 04/26/13 Ezra Cannon, Formerly [facility] [place] [address] [place] [address] Pharmacist Pharmacy 07/11/21 Floral Decorator Relationship Specialty Start Date End Date Payton Galicia MD [address] [place] [address] PCP - General Internal Medicine 04/26/13 Ezra Cannon, Former[facility] [place] [address] [facility] [address] Pharmacist Pharmacy 07/11/21 Floral Decorator Relationship Specialty Start Date End Date Payton Galicia MD [address] [place] [address] PCP - General Internal Medicine 04/26/13 [facility] [address] [place] [address] Pharmacist Pharmacy 07/11/21 Floral Decorator Relationship Specialty Start Date End Date Payton Galicia MD [address] [place] [address] PCP - General Internal Medicine 04/26/13 [facility] [address] [place] [address] Pharmacist Pharmacy 07/11/21 Floral Decorator Relationship Specialty Start Date End Date Payton Galicia MD [address] [facility] [address] PCP - General Internal Medicine 04/26/13 [facility] [address] [place] [address] Pharmacist Pharmacy 07/11/21 Floral Decorator Relationship Specialty Start Date End Date Payton Galicia MD [address] [place] [address] PCP - General Internal Medicine 04/26/13 FOR RECORDS PERTAINING TO PATIENTS WHO ARE OR HAVE BEEN ENROLLED IN A CHEMICAL DEPENDENCY/SUBSTANCEABUSE PROGRAM, SOME INFORMATION MAY BE OMITTED. This clinical summary was aggregated from multiple sources. Caution should be exercised in using it in the provision of clinical care. This summary normalizes information from multiple sources, and as a consequence, information in this document may materially change the coding, format and clinical context of patient data. In addition, data may be omitted in some cases. CLINICAL DECISIONS SHOULD BE BASED ON THE PRIMARY CLINICAL RECORDS. [facility]. provides no warranty or guarantee of the accuracy or completeness of information in this document.
== END 2023-05-29 15:42 | disposition home or self-care (01) ==
PROVIDERS: Emergency Provider Student in an Organized Health Care Education/Training Program; PCP Internal Medicine; Visit Provider Student in an Organized Health Care Education/Training Program
DX: S60.222A Contusion of left hand, initial encounter (principal); W23.0XXA Caught, crushed, jammed, or pinched between moving objects, initial encounter; Z79.82 Long term (current) use of aspirin; Z79.84 Long term (current) use of oral hypoglycemic drugs; Z79.899 Other long term (current) drug therapy
CPT/HCPCS: 73130; 99282

== ENCOUNTER 2023-12-05 19:38 | Emergency (ER) | payer MEDICARE, BC, SELFPAY ==
[2023-12-05 19:39] VITALS: BP 144/82; PULSE 78; RESP 16; TEMP 35.9; O2SAT 97; BMI 37.9
--- NOTE | 2023-12-05 20:02 | CT_ITS ---
INDICATION: injury EXAMINATION: CT BRAIN - CT Head or Brain W/O Contrast Injection TECHNIQUE: Multiple axial images were obtained of the head without intravenous contrast. A radiation dose optimization technique was used for this scan. IV Contrast dosage and agent: None. RADIATION DOSAGE (If Supplied By Facility): CTDIvol = ( 44.99 ) mGy, DLP = ( 931.09 ) mGycm COMPARISON: 12/13/2019 FINDINGS: HEMISPHERES: 1. The cerebral parenchyma, ventricular system, subarachnoid spaces have normal configuration and density. There is a normal gyral pattern. There is normal alrdich/white differentiation. No midline shift.. 2. Chronic microvascular deep white matter changes present. 3. No intraparenchymal mass, hemorrhage, or acute territorial infarct. CEREBELLUM - BRAINSTEM: The cerebellum, brainstem, basilar and suprasellar cisterns have normal appearance. No Chiari malformation. PITUITARY: Infundibulum and pituitary have normal configuration. Midline structures appear normal. CSF SPACES: Appropriate for age. No hydrocephalus. Basal cisterns are patent. VESSELS: 1. No significant vascular calcifications in the cavernous carotid vessels. 2. No hyperdense vascular signs noted.. ORBITS AND PARANASAL SINUSES: 1. Normal appearance of the bony orbits. Normal appearance of the globes and retrobulbar soft tissues.. 2. Paranasal sinuses are clear. BONY ELEMENTS: Bony elements of the cranial vault, facial skeleton and skull base have normal appearance. SCALP AND SOFT TISSUES: Normal appearance of the soft tissues of the scalp and the visualized face OTHER: None ASPECTS Score for Acute Strokes: 10 CT/Brain/Head without Contrast IMPRESSION: 1. Mild chronic microvascular deep white matter changes. 2. No intracranial evidence of acute traumatic injury. 3. No intracranial mass, hemorrhage or acute territorial infarct. 4. No fractures noted. 5. No radiographically significant sinus disease.. Electronically Signed: Ozzie Kim MD at 21:08 EDT ,
--- NOTE | 2023-12-05 20:02 | EX.ED.GENINJ ---
HPI History of Present Illness Chief Complaint: Head Injury Informant: patient Onset/Context/Timing Onset: Today Narrative Narrative: Patient presents secondary to head injury. 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 He has a small area of swelling to the apex of his scalp. He states he saw double for approximately 3 minutes and he still feels dizzy and has some nausea. He takes baby aspirin. No other anticoagulation. [facility] Medical History (Updated 12/05/23 @ 21:[address] Ofe Stallings MD) Gout Diabetes mellitus, type II Hyperlipidemia Hypertension Home Medications ?Medication ?Instructions ?Recorded ?Last Taken ?Type acidophilus 25 million 1 tab PO BID immune health 10/30/13 12/17/19 History cell-pectin, citrus 100 mg tablet allopurinol 300 mg tablet 300 mg PO DAILY gout 10/30/13 12/17/19 History aspirin 81 mg chewable tablet 81 mg PO DAILY@0800 heart health 10/30/13 12/17/19 History pravastatin 40 mg tablet 40 mg PO DAILY cholesterol 05/22/14 12/17/19 History albuterol sulfate 90 mcg/actuation 2 puff inhalation Q4H PRN PRN Sob 12/11/19 12/18/19 History aerosol inhaler &/Or Wheezing amlodipine 5 mg tablet 5 mg PO DAILY bp 12/11/19 12/17/19 History losartan 100 mg tablet 100 mg PO DAILY bp 12/11/19 12/17/19 History metformin 500 mg tablet,extended 1,000 mg PO BID dm 12/11/19 12/17/19 History release 24 hr metoprolol succinate 50 mg 50 mg PO DAILY bp 12/11/19 12/17/19 History tablet,extended release 24 hr pioglitazone 15 mg tablet 15 mg PO QHS dm 12/11/19 12/17/19 History benzonatate 100 mg capsule 200 mg (2 x 100 mg) PO Q4H PRN PRN 12/20/19 Unknown Rx COUGH codeine 10 mg-guaifenesin 100 mg/5 10 ml PO Q4H PRN PRN COUGH #8 oz 12/20/19 Unknown Rx mL oral liquid dexamethasone 4 mg tablet 6 mg (1.5 x 4 mg) PO DAILY@0800 #9 12/20/19 Unknown Rx tabs dexamethasone 6 mg tablet 6 mg PO DAILY 5 days 08/05/20 Unknown Rx ondansetron 4 mg disintegrating 4 mg PO Q8H PRN PRN Nausea #10 tabs 10/27/21 Unknown Rx tablet nirmatrelvir 150 mg-ritonavir 100 See Rx Instructions PO .COMPLEX 03/04/23 Unknown Rx mg tablets in a dose pack #20 tabs (Paxlovid) nirmatrelvir 150 mg-ritonavir 100 See Rx Instructions PO .COMPLEX 03/04/23 Unknown Rx mg tablets in a dose pack #20 tabs (Paxlovid) nirmatrelvir 300 mg (150 mg See Rx Instructions PO .COMPLEX 03/04/23 Unknown Rx x2)-ritonavir 100 mg tablet,dose #30 tabs pack (Paxlovid) hydrocodone-acetaminophen 5-325mg 1 tab PO Q6H PRN PRN Pain 3 days 05/29/23 Unknown Rx 5mg-325mg #12 TABLETS Allergy/AdvReac Type Severity Reaction Status Date / Time clarithromycin (From Biaxin) Allergy Hives Verified 12/05/23 19:39 Sulfa (Sulfonamide Allergy Hives Verified 12/05/23 19:39 Antibiotics) hydralazine AdvReac Other Verified 12/05/23 19:39 Social History household members: spouse Smoking Status: Never smoker substance use type: does not use ROS ROS ED Constitutional Constitutional ED: Denies chills or fever(s) Eyes Eyes: Denies discharge from eye(s) ENT ENT ED: Denies discharge from eye(s), rhinorrhea or sore throat Cardiovascular Cardiovascular: Denies chest pain or palpitations Respiratory/Chest Respiratory/Chest: Denies cough or dyspnea Gastrointestinal Gastrointestinal: Reports nausea; Denies abdominal pain or vomiting Musculoskeletal Musculoskeletal: Denies back pain, extremity pain or neck pain Integumentary Denies Abrasions or rash Neurologic Neurologic: Reports headache(s); Denies weakness Psychiatric Psychiatric: Denies anxiety or depression Allergic/Immunologic Allergic/Immunologic ED: Denies lip swelling or urticaria EXAM Physical Exam Const Vital Signs: 12/05/23 19:39 12/05/23 20:43 12/05/23 20:44 Temperature 96.7 F L Temperature Source Temporal Pulse Rate 78 79 Respiratory Rate 16 18 Respiratory Effort Normal Non-Labored Respiratory Depth Normal Respiratory Pattern Normal Blood Pressure 144/82 H 110/53 L Blood Pressure Mean 102 72 Pulse Ox 97 96 Oxygen Delivery Method Room Air Room Air Room Air Positive well nourished and well developed General Appearance ED: well developed HEENT HEENT Narrative: Patient with small focal area of swelling to the midline parietal scalp. No open lacerations. Eyes EOMs intact bilaterally Neck Neck Narrative: No C-spine tenderness. Chest Wall inspection of chest normal and palpation of chest normal Resp normal respiratory effort and clear to auscultation bilaterally Cardio regular rhythm Rate: regular rate GI non-tender Palpation: soft Back/Spine normal to inspection Extremity normal to inspection Neuro oriented x3, moves all extremities, no focal motor deficits and no sensory deficits noted Psych mental status grossly normal Skin no rashes or lesions noted MDM MDM MDM Narrative Medical decision making narrative: Patient was sent to CT for imaging of the brain. Radiography Diagnostic Testing: Clinical Impression(s) from Imaging Studies Brain CT 12/05/23 20:02 IMPRESSION: 1. Mild chronic microvascular deep white matter changes. 2. No intracranial evidence of acute traumatic injury. 3. No intracranial mass, hemorrhage or acute territorial infarct. 4. No fractures noted. 5. No radiographically significant sinus disease.. Electronically Signed: Ozzie Kim MD at 21:08 EDT , Treatment and Re-Evaluation Narrative: CT scan of the head reveals no acute intracranial injury. Patient and reassured on repeat exam. Patient use Tylenol or ibuprofen as needed for headache. I will give him instructions for concussion so he knows what to watch for. Patient comfortable with the plan and treatment. Discharge Plan Triage Chief Complaint: Head Injury ED Provider: Ofe Stallings Dx/Rx/DC Orders Clinical Impression: Closed head injury Instructions: ED Concussion, ED Head Injury (Adult) Prescriptions: No Action aspirin 81 MG tablet,chewable 81 mg PO DAILY@0800 Patient Comments: [facility] allopurinol 300 MG tablet 300 mg PO DAILY Patient Comments: GOUT acidophilus-pectin, citrus 1 TABLET tablet 1 tab PO BID Patient Comments: supplement pravastatin 40 MG tablet 40 mg PO DAILY Patient Comments: CHOLESTEROL pioglitazone 15 MG tablet 15 mg PO QHS metoprolol succinate 50 MG tablet extended release 24 hr 50 mg PO DAILY amlodipine 5 MG tablet 5 mg PO DAILY losartan 100 MG tablet 100 mg PO DAILY albuterol sulfate 90 mcg/actuation HFA aerosol inhaler 2 puff inhalation Q4H PRN PRN (Reason: Sob &/Or Wheezing) metformin 500 MG tablet extended release 24 hr 1,000 mg PO BID benzonatate 100 MG capsule 200 mg PO Q4H PRN PRN (Reason: COUGH) 0RF dexamethasone 4 MG tablet 6 mg PO DAILY@0800 Qty: 9 0RF codeine-guaifenesin 5 ML liquid 10 ml PO Q4H PRN PRN (Reason: COUGH) Qty: 8 0RF dexamethasone 6 MG tablet 6 mg PO DAILY 5 Days 0RF ondansetron [ondansetron] 4 MG tablet 4 mg PO Q8H PRN PRN (Reason: Nausea) Qty: 10 0RF Paxlovid 300 mg (150 mg x 2)-100 mg tablets,dose pack See Rx Instructions .ROUTE .COMPLEX Qty: 30 0RF Rx Instructions: take TWO 150 mg tablets of nirmatrelvir with ONE 100 mg tablet of ritonavir twice daily for 5 days Paxlovid 150-100 mg tablets,dose pack See Rx Instructions .ROUTE .COMPLEX Qty: 20 0RF Rx Instructions: take ONE 150 mg tablet of nirmatrelvir with ONE 100 mg tablet of ritonavir twice daily for 5 days Paxlovid 150-100 mg tablets,dose pack See Rx Instructions .ROUTE .COMPLEX Qty: 20 0RF Rx Instructions: take ONE 150 mg tablet of nirmatrelvir with ONE 100 mg tablet of ritonavir twice daily for 5 days hydrocodone-acetaminophen 5-325 mg tablet 1 tab PO Q6H PRN PRN (Reason: Pain) 3 Days Qty: 12 0RF Primary Care Provider: Kate Galicia Referrals: Kate Galicia MD [Primary Care Provider] - 1-2 Weeks Print Language: Angolan Disposition Disposition: Home, Self Care
[2023-12-05 20:44] VITALS: BP 110/53; PULSE 79; RESP 18; O2SAT 96
[2023-12-05 21:43] VITALS: BP 135/74; PULSE 70; RESP 16; TEMP 36.6; O2SAT 97
== END 2023-12-05 21:44 | disposition home or self-care (01) ==
PROVIDERS: Emergency Provider Emergency Medicine; PCP Internal Medicine; Visit Provider Emergency Medicine
DX: S09.90XA Unspecified injury of head, initial encounter (principal); E11.9 Type 2 diabetes mellitus without complications; W22.8XXA Striking against or struck by other objects, initial encounter; I10 Essential (primary) hypertension; E78.5 Hyperlipidemia, unspecified; M10.9 Gout, unspecified; Z79.82 Long term (current) use of aspirin; Z79.84 Long term (current) use of oral hypoglycemic drugs; Z79.899 Other long term (current) drug therapy
CPT/HCPCS: 70450; 99282